=== PATIENT | female | born 1965 | race Caucasian/White ===

== ENCOUNTER → 2017-05-14 | Outpatient (CLI) | payer OTHER ==
--- NOTE | 2017-05-14 08:24 | MR ---
EXAMINATION TYPE: MR brain wo con DATE OF EXAM: 05/14/2017 COMPARISON: CT brain July 26, 2016. HISTORY: Headaches TECHNIQUE: Multiplanar, multisequence imaging of the brain and brainstem is performed without IV cont rast. FINDINGS: Artifact degradation over frontal aspect is noted making evaluation suboptimal. Diffusion weighted images demonstrate areas of increased signal for example left thalamus near image 112 but ar e significantly degraded by artifact. No corresponding low signal is seen on ADC mapping. Higher aspe cts of the brain show no restricted diffusion. There is no extraaxial fluid collection or significant white matter signal abnormality. There is single 3 mm millimeter focus right frontal white matter on axial image 18. The ventricular system and cisternal spaces are normal in size and appearance. The brain volume is age appropriate. Midline structures demonstrate normal morphology. The craniocervical junction appears within normal limits. Normal vascular flow voids are present. The globes are distorted by artifact. Evaluation of p aranasal sinuses is suboptimal. IMPRESSION: Suboptimal study due to marked artifact degradation involving frontal brain. No obvious abnormality is seen to account for patient's symptoms.
== END | disposition home or self-care (01) ==
LOC: RADMRIMAIN 07:13
PROVIDERS: ATTEND Psychiatry & Neurology Pain Medicine
DX: G93.89 Other specified disorders of brain (principal)
CPT/HCPCS: 70551

== ENCOUNTER → 2017-05-24 | Outpatient (CLI) | payer OTHER ==
[2017-05-24 12:57] LABS: Calcium 9.3 mg/dL (8.4-10.2); Magnesium 2.2 mg/dL (1.6-2.3)
[2017-05-24 19:29] LABS: Hemoglobin A1C 5.5 % (4.2-6.1)
[2017-05-29 10:38] LABS: Vitamin E (Alpha Tocopherol) 1109 ug/dL (500-1800)
== END | disposition home or self-care (01) ==
LOC: LABWHC1 05-22 11:14
PROVIDERS: ATTEND Psychiatry & Neurology Pain Medicine
DX: G89.4 Chronic pain syndrome (principal); Z79.899 Other long term (current) drug therapy
CPT/HCPCS: 36415; 82306; 82310; 82550; 83036; 83519; 83735; 84207; 84425; 84446; 84590; 84591; 84597

== ENCOUNTER → 2017-06-03 | Outpatient (CLI) | payer OTHER | END | disposition home or self-care (01) | LOC: LABWHC1 10:21 | PROVIDERS: ATTEND Internal Medicine Interventional Cardiology | DX: E03.9 Hypothyroidism, unspecified (principal) | CPT/HCPCS: 36415; 84443 ==

== ENCOUNTER → 2017-08-21 | Outpatient (CLI) | payer OTHER | END | disposition home or self-care (01) | LOC: LABWHC1 08:20 | PROVIDERS: ATTEND Psychiatry & Neurology Pain Medicine | DX: E55.9 Vitamin D deficiency, unspecified (principal) | CPT/HCPCS: 36415; 82306 ==

== ENCOUNTER → 2017-12-09 | Outpatient (CLI) | payer OTHER ==
--- NOTE | 2017-12-09 18:07 | XR ---
EXAMINATION TYPE: XR thoracic spine 2V DATE OF EXAM: 12/09/2017 COMPARISON: NONE HISTORY: Back pain TECHNIQUE: 3 views FINDINGS: There is mild thoracic dextroscoliosis. There is mild spurring of the endplates. I see no c ompression fracture. Posterior elements are intact. There is no sign of paraspinal mass. IMPRESSION: Mild spondylotic changes. No fracture.
--- NOTE | 2017-12-09 18:13 | XR ---
EXAMINATION TYPE: XR Hip Bilateral Complete DATE OF EXAM: 12/09/2017 COMPARISON: NONE HISTORY: Hip pain TECHNIQUE: 4 views FINDINGS: I see no fracture nor dislocation. Hip joint spaces are fairly well-maintained. There is no sign of hip dysplasia. IMPRESSION: Negative bilateral hip exam.
--- NOTE | 2017-12-09 18:30 | XR ---
EXAMINATION TYPE: XR cervical spine comp DATE OF EXAM: 12/09/2017 COMPARISON: 01/18/2015 HISTORY: Neck pain TECHNIQUE: 5 views FINDINGS: Vertebra have normal alignment. Posterior elements are intact. Atlantoaxial facet joint is normal. There are no cervical ribs. There is minimal anterior spurring at C5-6. C7 is somewhat obscur ed by the shoulders. IMPRESSION: Negative cervical spine exam. Minimal spurring. No fracture. No change.
== END | disposition home or self-care (01) ==
LOC: RADXRMAIN 17:05
PROVIDERS: ATTEND Internal Medicine
DX: M47.814 Spondylosis without myelopathy or radiculopathy, thoracic region (principal); M46.02 Spinal enthesopathy, cervical region; M25.559 Pain in unspecified hip
CPT/HCPCS: 72050; 72070; 73521

== ENCOUNTER → 2017-12-18 | Outpatient (CLI) | payer OTHER ==
[2017-12-18 16:04] LABS: Vitamin D 25 Hydroxy 21.8 ng/mL (30.0-100.0)
[2017-12-18 16:39] LABS: Folate, Serum >24.0 ng/mL
[2017-12-20 05:46] LABS: Vitamin B1 60 ug/L (38-122)
[2017-12-20 12:54] LABS: Vitamin B6 40 ug/L (5-50)
[2017-12-28 07:03] LABS: Nicotinuric Acid None Detected
== END | disposition home or self-care (01) ==
LOC: LABWHC1 08:22
PROVIDERS: ATTEND Psychiatry & Neurology Pain Medicine
DX: E55.9 Vitamin D deficiency, unspecified (principal); G62.9 Polyneuropathy, unspecified; R53.83 Other fatigue
CPT/HCPCS: 36415; 82306; 82607; 82746; 84207; 84425; 84591

== ENCOUNTER 2018-03-26 01:14 | Inpatient (IN) | payer OTHER ==
[2018-03-26] MEDS ORDERED: NITROGLYCERIN SL TABS 0.4 MG TAB SUBLINGUAL STA ×3 (01:36)
[2018-03-26] MEDS ORDERED: ASPIRIN 81 MG PO STA (01:36)
--- NOTE | 2018-03-26 01:41 | ED ---
General Adult HPI - General Chief complaint: Chest Pain Stated complaint: Chest pain Time Seen by Provider: 03/26/18 01:32 Source: patient, RN notes reviewed Mode of arrival: wheelchair Limitations: no limitations - History of Present Illness Initial comments: Patient is a pleasant 52-year-old female presenting to the emergency department complaining of chest discomfort. Symptoms have been waxing and waning since around noon. No history of similar symptoms previously. Discomfort feels sharp. There is associated dyspnea. Patient does have a history of hypertension and former smoker. Patient does have a family history of cardiac disease. Discomfort is currently 7 or 8/10. No associated nausea or diaphoresis. Patient has not exerted herself since symptoms started. There is some radiation to the left arm. - Related Data Home Medications Medication Instructions Recorded Confirmed Furosemide [Lasix] 20 mg PO BID 01/05/16 03/26/18 Potassium Chloride ER [K-Dur 20] 10 meq PO DAILY 01/05/16 03/26/18 Baclofen [Lioresal] 5 mg PO TID 01/23/16 03/26/18 Cholecalciferol [Vitamin D3] 1,000 unit PO DAILY 03/26/18 03/26/18 DULoxetine HCL [Cymbalta] 60 mg PO DAILY 03/26/18 03/26/18 Gabapentin [Neurontin] 300 mg PO TID 03/26/18 03/26/18 Loratadine [Claritin] 10 mg PO DAILY 03/26/18 03/26/18 Meloxicam [Mobic] 15 mg PO DAILY 03/26/18 03/26/18 Metoprolol Tartrate [Lopressor] 25 mg PO BID 03/26/18 03/26/18 Multivit with Calcium,Iron,Min 1 each PO 03/26/18 03/26/18 [Women's Multivitamin] Vitamin B Complex/Folic Acid 0.4 mg PO 03/26/18 [B-Complex Tablet] buPROPion HCL [Wellbutrin SR] 150 mg PO 03/26/18 Previous Rx's Medication Instructions Recorded Omeprazole [PriLOSEC] 20 mg PO AC-BRKFST #30 cap 01/25/16 Allergies Allergy/AdvReac Type Severity Reaction Status Date / Time Iodinated Contrast- Oral and Allergy Dyspnea Verified 07/24/16 21:52 IV Dye [Iodinated Contrast Media - IV Dye] latex Allergy Rash/Hives Verified 07/24/16 20:20 orange juice [Newcomb] Allergy Unknown Verified 07/24/16 20:20 wheat Allergy Unknown Verified 07/24/16 20:20 Review of Systems ROS Statement: Those systems with pertinent positive or pertinent negative responses have been documented in the HPI. ROS Other: All systems not noted in ROS Statement are negative. Constitutional: Denies: fever Eyes: Denies: eye pain ENT: Denies: ear pain Respiratory: Reports: dyspnea Cardiovascular: Reports: chest pain Endocrine: Reports: fatigue Gastrointestinal: Denies: abdominal pain Genitourinary: Denies: dysuria Musculoskeletal: Denies: back pain Skin: Denies: rash Neurological: Denies: weakness Past Medical History Past Medical History: Asthma, Hypertension, Osteoarthritis (OA), Sleep Apnea/ CPAP/BIPAP Additional Past Medical History / Comment(s): bulging disc History of Any Multi-Drug Resistant Organisms: None Reported Past Surgical History: Adenoidectomy, Hysterectomy, Joint Replacement, Orthopedic Surgery, Tonsillectomy, Tubal Ligation, Uterine Ablation Additional Past Surgical History / Comment(s): Right knee replacement Past Anesthesia/Blood Transfusion Reactions: No Reported Reaction Past Psychological History: Depression Smoking Status: Former smoker Past Alcohol Use History: None Reported Past Drug Use History: None Reported - Past Family History Mother Family Medical History: Osteoarthritis (OA) Additional Family Medical History / Comment(s): heart murmur Father Family Medical History: Cancer, Diabetes Mellitus, Hypertension General Exam Limitations: no limitations General appearance: alert, in no apparent distress Head exam: Present: atraumatic Eye exam: Present: normal appearance Neck exam: Present: normal inspection Respiratory exam: Present: normal lung sounds bilaterally. Absent: chest wall tenderness Cardiovascular Exam: Present: regular rate, normal rhythm Expanded Peripheral pulses: 2+: Radial (R), Radial (L), Dorsalis Pedis (R), Dorsalis Pedis (L) GI/Abdominal exam: Present: soft. Absent: tenderness Extremities exam: Present: normal inspection. Absent: pedal edema, calf tenderness Neurological exam: Present: alert Psychiatric exam: Present: normal affect, normal mood Skin exam: Present: normal color Course Vital Signs 03/26/18 03/26/18 03/26/18 01:17 01:35 01:53 Temperature 99.8 F H Pulse Rate 100 98 102 H Respiratory 20 18 18 Rate Blood Pressure 185/96 162/79 142/86 O2 Sat by Pulse 100 99 97 Oximetry 03/26/18 03/26/18 02:01 02:05 Temperature Pulse Rate 112 H 98 Respiratory 18 18 Rate Blood Pressure 152/83 148/75 O2 Sat by Pulse 99 99 Oximetry - Reevaluation(s) Reevaluation #1: 03/26/18 01:37 Cardiology has been paged. STEMI alert has been called. Practitioner Shaye assistant womens volleyball coach has been paged for admission for Dr. Barrios, covering for Dr. Flynn. 03/26/18 01:41 Case was discussed with Dr. Carpenter and the cath team has been called in. Patient was made aware of plan. 03/26/18 01:50 Right-sided EKG does show Q waves and some borderline elevation in lead V4. Sinus tachycardia 102. WI 168. QRS 68. QT 324. QTC 422. Low QRS did. Inferior Q waves with ST elevation. 03/26/18 01:53 Discomfort currently rated 3 or 4/10. 03/26/18 02:02 Dr. Carpenter is present and evaluating patient. 03/26/18 02:13 Patient heading to [facility] at this time. EKG Findings - EKG Comments: EKG Findings:: Normal sinus rhythm 96. WI 162. QRS 88. QT 340. QTc 429. Left axis. Inferior Q waves with ST elevation. ST depression leads V2 through V6. Medical Decision Making - Lab Data Result diagrams: 03/26/18 01:43 Lab Results 03/26/18 03/26/18 Range/Units 01:43 01:43 Sodium 141 (137-145) mmol/L Potassium 4.0 (3.5-5.1) mmol/L Chloride 102 (98-107) mmol/L Carbon Dioxide 25 (22-30) mmol/L Anion Gap 14 mmol/L BUN 13 (7-17) mg/dL Creatinine 0.70 (0.52-1.04) mg/dL Est GFR (CKD-EPI)AfAm >90 (>60 ml/min/1.73 sqM) Est GFR (CKD-EPI)NonAf >90 (>60 ml/min/1.73 sqM) Glucose 125 H (74-99) mg/dL Calcium 9.6 (8.4-10.2) mg/dL Magnesium 2.1 (1.6-2.3) mg/dL Total Bilirubin 0.2 (0.2-1.3) mg/dL AST 39 H (14-36) U/L ALT 25 (9-52) U/L Alkaline Phosphatase 63 (38-126) U/L Total Creatine Kinase 172 H (30-135) U/L Total Protein 6.3 (6.3-8.2) g/dL Albumin 3.9 (3.5-5.0) g/dL - Radiology Data Interpreted by me: Chest x-ray shows no acute process Critical Care Time Critical Care Time: Yes Total Critical Care Time: 31 Disposition Clinical Impression: ST elevation myocardial infarction (STEMI) Disposition: ADMITTED IP TO THIS HOSP Condition: Serious Is patient prescribed a controlled substance at d/c from ED?: No Decision Time: 02:13
[2018-03-26] MEDS ORDERED: HEPARIN SODIUM,PORCINE 5,000 UNIT/ML 1 ML VIAL IV ONE (01:51)
[2018-03-26] MEDS ORDERED: HEPARIN SODIUM,PORCINE 5,000 UNIT/ML 1 ML VIAL IV PRN (01:51)
[2018-03-26] MEDS ORDERED: SODIUM CHLORIDE 0.9% 1,000 ML IV STA (01:52)
[2018-03-26 01:58] LABS: Glucose,Whole Blood 120 mg/dL (75-99)
[2018-03-26 02:00] LABS: ALT 25 U/L (9-52); AST 39 U/L (14-36); Albumin 3.9 g/dL (3.5-5.0); Alkaline Phosphatase 63 U/L (38-126); Anion Gap 14 mmol/L; Blood Urea Nitrogen 13 mg/dL (7-17); Calcium 9.6 mg/dL (8.4-10.2); Carbon Dioxide 25 mmol/L (22-30); Chloride 102 mmol/L (98-107); Glucose 125 mg/dL (74-99); Magnesium 2.1 mg/dL (1.6-2.3); Sodium 141 mmol/L (137-145); Total Bilirubin 0.2 mg/dL (0.2-1.3); Total Protein 6.3 g/dL (6.3-8.2)
[2018-03-26] MEDS ORDERED: HEPARIN SOD,PORK IN 0.45% NACL 25,000 UNIT in 0.45% NACL 1 500ML.BAG IV SCH (02:00)
--- NOTE | 2018-03-26 02:04 | XR ---
EXAMINATION TYPE: XR chest 1V portable DATE OF EXAM: 03/26/2018 COMPARISON: 07/24/2016 HISTORY: Chest pain TECHNIQUE: Single frontal view of the chest is obtained. FINDINGS: Heart and mediastinum are normal. Lungs are clear. There is no heart failure. There are ch est leads. Bony thorax is intact. IMPRESSION: Normal chest. No change.
[2018-03-26 02:06] LABS: Partial Thromboplastin Time 23.2 sec (22.0-30.0); Prothrombin Time 9.7 sec (9.0-12.0)
[2018-03-26] MEDS ORDERED: LIDOCAINE 2% INJ 20 MG/ML (20 ML MDV) ONE (02:07)
[2018-03-26] MEDS ORDERED: VERAPAMIL 2.5 MG/ML 2 ML AMP ONE (02:07)
[2018-03-26] MEDS ORDERED: methylPREDNISolone SOD SUCCI 125 MG/2 ML VIAL ONE (02:14)
[2018-03-26] MEDS ORDERED: diphenhydrAMINE 50 MG/ML 1 ML VIAL ONE (02:14)
[2018-03-26 02:21] LABS: Basophils # (A) 0.1 k/uL (0-0.2); Basophils % (A) 1 %; Eosinophils # (A) 0.4 k/uL (0-0.7); Eosinophils % (A) 3 %; HCT 44.8 % (34.0-46.0); HGB 14.6 gm/dL (11.4-16.0); Lymphocytes # (A) 4.6 k/uL (1.0-4.8); Lymphocytes % (A) 39 %; MCH 28.5 pg (25.0-35.0); MCHC 32.7 g/dL (31.0-37.0); MCV 87.2 fL (80.0-100.0); Mean Platelet Volume 7.2; Monocytes # (A) 0.8 k/uL (0-1.0); Monocytes % (A) 7 %; Neutrophils # (A) 5.7 k/uL (1.3-7.7); Neutrophils % (A) 48 %; Platelet Count 386 k/uL (150-450); RBC 5.14 m/uL (3.80-5.40); RDW 13.5 % (11.5-15.5)
[2018-03-26] MEDS ORDERED: methylPREDNISolone SOD SUCCI 125 MG/2 ML VIAL IV ONE (02:25)
[2018-03-26] MEDS ORDERED: diphenhydrAMINE 50 MG/ML 1 ML VIAL IVP ONE (02:25)
[2018-03-26] MEDS ORDERED: LIDOCAINE 2% INJ 20 MG/ML SQ ONE (02:29)
[2018-03-26] MEDS ORDERED: SODIUM CHLORIDE 0.9% 500 ML IV ONE (02:31)
[2018-03-26] MEDS ORDERED: VERAPAMIL SYRINGE (5 MG/10 ML) INTRAARTER ONE (02:31)
[2018-03-26] MEDS ORDERED: BIVALIRUDIN BOLUS 250 MG/50 ML IV ONE (02:38)
[2018-03-26 02:39] LABS: Creatine Kinase MB 11.7 ng/mL (0.0-2.4); Troponin I 0.824 ng/mL (0.000-0.034)
[2018-03-26] MEDS ORDERED: BIVALIRUDIN 250 MG in SODIUM CHLORIDE 0.9% 50 ML IV ONE (02:39)
[2018-03-26] MEDS ORDERED: PRASUGREL 10 MG TAB ONE (02:41)
[2018-03-26] MEDS ORDERED: PRASUGREL 10 MG TAB PO ONE (02:45)
[2018-03-26] MEDS ORDERED: IOPAMIDOL-370 125ML BTL INJ ONE (02:49)
[2018-03-26] MEDS ORDERED: IOPAMIDOL-370 100ML BTL INJ ONE (02:52)
[2018-03-26] MEDS ORDERED: ATROPINE SULFATE 0.1 MG/ML 10ML SYRINGE IV PRN (03:09)
[2018-03-26] MEDS ORDERED: RX INFO: IV CONTRAST WAS GIVEN 1 EACH MISC MISCELLANE PRN (03:09)
[2018-03-26] MEDS ORDERED: NITROGLYCERIN SL TABS 0.4 MG TAB SUBLINGUAL PRN (03:09)
[2018-03-26] MEDS ORDERED: MAG HYDROX/AL HYDROX/SIMETH 30 ML CUP PO PRN (03:09)
[2018-03-26] MEDS ORDERED: ZOLPIDEM 5 MG TAB PO PRN (03:09)
[2018-03-26] MEDS ORDERED: SODIUM CHLORIDE 0.9% 1,000 ML IV SCH (03:15)
[2018-03-26 06:11] VITALS: BMI 40.2
--- NOTE | 2018-03-26 07:42 | CONS ---
CONSULTATION Ms. Valdez is a 52-year-old female with a strong family history of coronary artery disease, who presented with symptoms of chest discomfort. She has been having chest discomfort on and off since noon of yesterday. Came into the emergency room with evidence of inferior wall myocardial infarction. Patient has no prior documented history of coronary artery disease. She has no prior similar symptoms. She had prior history of fast heartbeat, has been seen by Dr. Nuñez and according to her, her workup was unremarkable. She has no history of syncope. No history of PND or orthopnea. She has chronic mild peripheral edema. She is not very active physically. Her coronary risk factor is positive for hypertension. She has a prior history of smoking, which she stopped 10 years ago. She has a strong family history of coronary artery disease in her family's side of the family. She has no history of documented hyperlipidemia or diabetes. MEDICATIONS: Include vitamin D, metoprolol tartrate 25 mg twice a day, potassium chloride, Lasix 20 mg twice a day, Mobic, Cymbalta, Prilosec, Neurontin, Wellbutrin, and baclofen in addition to vitamins. REVIEW OF SYSTEMS: RESPIRATORY SYSTEM: She has no history of asthma, but no recent wheezing or cough. GI SYSTEM: No recent GI bleeding. No peptic ulcer disease. SYSTEM: No dysuria or hematuria. NERVOUS SYSTEM: No stroke or seizure. PHYSICAL EXAMINATION: A 52-year-old female, alert, oriented, in no apparent distress. Her chest pain is better at the time my evaluation, blood pressure 148/70 with a heart rate in the 90s. HEAD: Normocephalic. EYES: Sclerae nonicteric. NECK: Good upstroke. No bruit. LUNGS: Clear to auscultation. HEART: Regular rate and rhythm, S1, S2. No S3 with systolic murmur at the base. No diastolic murmur. ABDOMEN: Soft, obese, nontender. Positive bowel sounds, no organomegaly. EXTREMITIES: No edema. Intact distal pulses. LAB DATA: Revealed BUN and creatinine 13 and 0.7, potassium 4.0, AST 39. EKG revealed sinus mechanism with ST-segment elevation inferiorly, QS in leads [address]-segment depression in anterolateral leads. IMPRESSION: 1. Acute inferolateral wall myocardial infarction. 2. History of hypertension. 3. History of arrhythmia in the past of unclear etiology. 4. Remote history of smoking. 5. Strong family history of coronary artery disease. RECOMMENDATION: I have recommended proceeding with coronary angiography to assess her status and guide her treatment. The rationale behind the procedure as well as risks and complication were discussed with the patient who is in full understanding and agreement. Depending on the results of testing, further recommendation will be made. Thank you for this consult. Will follow with you. KIRAN / IJN: [id number] /
--- NOTE | 2018-03-26 07:48 | CC ---
CARDIAC CATHETERIZATION REPORT Ms. Valdez is a 52-year-old female with a history of hypertension, strong family history of coronary artery disease, who presented with symptoms of chest discomfort and ST-segment elevation in the inferior leads and ST depression in the anterolateral leads. In view of that, recommendation made regarding cardiac catheterization, the procedures risks and complication were discussed with the patient who was in full understanding and agreement. PROCEDURE: Patient was brought to the [facility] after receiving fentanyl and Benadryl and achieving moderate conscious sedated state. Using Xylocaine anesthesia and Seldinger technique, a 6-Belgian sheath was introduced into the right radial artery. Selective right and left angiography were performed using care 5-Belgian 3.5 bend left Evan catheter and a 6-Belgian FR4 guiding catheter. Images of the coronary arteries were obtained. Following that, angioplasty and stenting of the left circumflex was performed. Following that, a 6-Belgian tight pigtail catheter was introduced into the left ventricle and a 30 degree PATTON view of the left ventricle was obtained. Following that, the catheter and sheaths were removed. Hemostasis was obtained with deployment of a TR band. There was no immediate complication. Patient is returned to her room in stable condition. FINDINGS: 1. LEFT MAIN: This is a short-size vessel, bifurcating into left circumflex, left anterior descending artery, left main coronary artery has no evidence of high-grade stenosis. 2. LEFT ANTERIOR DESCENDING ARTERY: This is a large-sized vessel, giving rise to a large diagonal branch proximally. The left anterior descending artery tapers down to the distal third. It has about 20% plaque proximally. The rest of the vessel has no high-grade stenosis. 3. LEFT CIRCUMFLEX: This is a large nondominant vessel giving rise to two obtuse marginal branch and the second one is the largest in caliber. The left circumflex after the takeoff of these first obtuse marginal branch has a 99% stenosis. The rest of the vessel has no high-grade stenosis. 4. RIGHT CORONARY ARTERY: This is a dominant vessel, moderate in caliber, bifurcating distally into PDA and posterolateral segment and branches. The right coronary artery as well as its branches have no evidence of obstructive coronary artery disease. 5. LEFT VENTRICULOGRAM: Left ventriculogram is performed in 30 degree PATTON view and revealed an inferoapical severe mid inferior, severe hypokinesis, ejection fraction 45% to 50%. There was no significant mitral regurgitation. HEMODYNAMICS: There was no gradient across the aortic valve. The left ventricular end- diastolic pressure was 16-18 mmHg. CONCLUSION: 1. Critical stenosis in the distal left circumflex. 2. Mild plaque in the proximal left anterior descending artery. .. 3. Mildly impaired left ventricular systolic function. RECOMMENDATION: In view of finding anatomy, I recommend to proceed with angioplasty and stenting of the left circumflex. The procedures, risks and complication were discussed with the patient was in the in agreement. MMODL / IJN: [id number] / MTDD
--- NOTE | 2018-03-26 08:03 | PTCA ---
PERCUTANEOUSTRANS CORORONARY ANGIOGRAPHY Ms. Valdez is a 52-year-old female with a history of hypertension and strong family history of coronary artery disease, who presented with evidence of an acute myocardial infarction, underwent cardiac catheterization, was found to have a critical stenosis involving the distal left circumflex. In view of that, recommendation was made regarding angioplasty and stenting. The procedures, risks and complication were discussed with the patient who is in full understanding and agreement. PROCEDURE: A 6-Belarusian FL 3.5 guiding catheter introduced into the system after cannulating the left main, a 0.014 advanced medium weight J-wire was advanced across the lesion and positioned distally. Then a 2.5 x 12 mm Trek balloon was advanced at 10 atmospheres was done. Following that, the balloon was removed and a 3.25 x 15 mm Xience Alpine stent was deployed, postdilated to 16 atmospheres. \After the last inflation, after appropriate wait the balloon and the guidewire were withdrawn back in the guiding catheter. Images were obtained and repeated. Those images reveal stable successful stenting. At that point, the guiding catheter, the bone. The guide removed and a 6 and a 5-Belarusian tight pigtail catheter was left ventricle and left ventriculogram was performed. Following that, the catheter and sheath were removed. Hemostasis was obtained with deployment of a TR band. There was no immediate complication. Patient was returned to her room in stable condition. At the end of the procedure, the patient's chest discomfort has almost resolved. She received Angiomax per protocol as well as oral loading dose of Effient and she received intra-arterial verapamil. RESULTS: Successful stenting of the distal left circumflex with reduction of stenosis from 99% to 0%. RECOMMENDATION: 1. Patient will be continued on aspirin, Effient, beta nanci, statin. The importance of dual antiplatelet treatment were discussed with the patient and her family who are in full understanding and agreement. 2. Duration of the procedure 27 minutes. MMODL / IJN: [id number] /
--- NOTE | 2018-03-26 08:12 | LTR ---
DATE OF SERVICE: 03/26/2018 RE: Radha Valdez Dear Dr. Camargo; I had the pleasure to perform cardiac catheterization on Ms. Valdez at [facility] on March 26, 2018 and a fully copy of the procedure note will be forwarded to you. In brief, she was found to have a subtotally occluded distal left circumflex, underwent successful stenting of that vessel using a drug-eluting stent. I am hopeful that this procedure will stabilize her status and thank you again for allowing me to participate in this patient's care. Please feel free to call for any questions. Sincerely yours, Deepak BECK / MELLYN: [id number] /
[2018-03-26 08:43] LABS: Basophils # (A) 0.1 k/uL (0-0.2); Basophils % (A) 0 %; Eosinophils # (A) 0.1 k/uL (0-0.7); Eosinophils % (A) 1 %; HCT 45.6 % (34.0-46.0); HGB 14.9 gm/dL (11.4-16.0); Lymphocytes # (A) 1.6 k/uL (1.0-4.8); Lymphocytes % (A) 15 %; MCH 28.9 pg (25.0-35.0); MCHC 32.7 g/dL (31.0-37.0); MCV 88.3 fL (80.0-100.0); Monocytes # (A) 0.1 k/uL (0-1.0); Monocytes % (A) 1 %; Neutrophils # (A) 8.8 k/uL (1.3-7.7); Neutrophils % (A) 82 %; Platelet Count 364 k/uL (150-450); RBC 5.17 m/uL (3.80-5.40); RDW 13.3 % (11.5-15.5); WBC 10.7 k/uL (3.8-10.6)
[2018-03-26 09:00] LABS: Anion Gap 14 mmol/L; Blood Urea Nitrogen 10 mg/dL (7-17); Calcium 9.5 mg/dL (8.4-10.2); Carbon Dioxide 25 mmol/L (22-30); Chloride 103 mmol/L (98-107); Cholesterol 198 mg/dL (<200); Glucose 160 mg/dL (74-99); HDL Cholesterol 47 mg/dL (40-60); LDL Cholesterol,Calculated 133 mg/dL (0-99); Potassium 4.4 mmol/L (3.5-5.1); Sodium 142 mmol/L (137-145); Triglycerides 91 mg/dL (<150)
[2018-03-26] MEDS: GABAPENTIN 300 MG CAP PO SCH ×3 (09:16→22:23)
[2018-03-26] MEDS: DULoxetine HCL 60 MG CAPSULE.DR PO SCH (09:16)
[2018-03-26] MEDS: LISINOPRIL 5 MG TAB PO SCH (09:16)
[2018-03-26] MEDS: ASPIRIN 81 MG PO SCH (09:16)
[2018-03-26] MEDS: METOPROLOL TARTRATE 25 MG TAB PO SCH ×2 (09:17→22:23)
[2018-03-26] MEDS: PANTOPRAZOLE 40 MG TABLET PO SCH (09:17)
--- NOTE | 2018-03-26 13:52 | ECHOF ---
Referral Reason:mi MEASUREMENTS -------- HEIGHT: 157.5 cm WEIGHT: 99.8 kg BP: 168/81 RVIDd: 3.3 cm (< 3.3) IVSd: 1.2 cm (0.6 - 1.1) LVIDd: 5.0 cm (3.9 - 5.3) LVPWd: 1.2 cm (0.6 - 1.1) IVSs: 1.7 cm LVIDs: 3.9 cm LVPWs: 1.7 cm LAESV Index (A-L): 19.35 ml/m Ao Diam: 2.5 cm (2.0 - 3.7) AV Cusp: 1.9 cm (1.5 - 2.6) LA Diam: 3.3 cm (2.7 - 3.8) MV E Duncan: 0.64 m/s MV DecT: 216 ms MV A Duncan: 0.92 m/s MV E/A Ratio: 0.69 RAP: 5.00 mmHg RVSP: 12.89 mmHg FINDINGS -------- Sinus rhythm. This was a techncally difficult study with suboptimal views, , Lumason utilized for enhancement of im ages. The left ventricular size is normal. There is mild concentric left ventricular hypertrophy. Overa ll left ventricular systolic function is low-normal with, an EF between 50 - 55 %. The right ventricle is normal in size. The left atrial size is normal. Normal LA size by volume 22+/-6 ml/m2. The right atrial size is normal. 5.0mg OF Lumason UTLIZED: 2 OR MORE WALL SEGMENTS NOT VISUALIZED. The aortic valve is trileaflet, and appears structurally normal. No aortic stenosis or regurgitation. Mild mitral annular calcification present. Mild mitral regurgitation is present. Mild tricuspid regurgitation present. There is no evidence of pulmonary hypertension. The right v entricular systolic pressure, as measured by Doppler, is 12.89mmHg. The pulmonic valve was not well visualized. There is no pulmonic regurgitation present. The aortic root size is normal. There is no pericardial effusion. CONCLUSIONS -------- 1. This was a techncally difficult study with suboptimal views, , Lumason utilized for enhancement of images. 2. The left ventricular size is normal. 3. There is mild concentric left ventricular hypertrophy. 4. Overall left ventricular systolic function is low-normal with, an EF between 50 - 55 %. 5. The left atrial size is normal. 6. Normal LA size by volume 22+/-6 ml/m2. 7. 5.0mg OF Lumason UTLIZED: 2 OR MORE WALL SEGMENTS NOT VISUALIZED. 8. The aortic valve is trileaflet, and appears structurally normal. No aortic stenosis or regurgitati on. 9. Mild mitral annular calcification present. 10. Mild mitral regurgitation is present. 11. Mild tricuspid regurgitation present. 12. There is no evidence of pulmonary hypertension. 13. The right ventricular systolic pressure, as measured by Doppler, is 12.89mmHg. 14. The pulmonic valve was not well visualized. 15. There is no pulmonic regurgitation present. 16. The aortic root size is normal. 17. There is no pericardial effusion. BUILDING DRAFTER: Radha Quintero RDCS
--- NOTE | 2018-03-26 19:18 | PN ---
PROGRESS NOTE This patient was admitted with chest pain. EKG was suggestive of inferior lateral myocardial infarction. Patient underwent a stent to the circumflex coronary artery. She is comfortable. The right radial pulse is normal. The patient's blood pressure is 152/71 mmHg. Head and ENT examination is negative. Heart: First and second heart sounds are normal. Lungs are clinically clear to auscultation and percussion. Abdomen is negative. EKG suggestive of inferior wall myocardial infarction. The patient's maximum troponin is 25. IMPRESSION: Status post anterior wall myocardial infarction. Patient's condition is stable. We will continue the patient on current medications. MMODL / IJN: [id number] /
[2018-03-26] MEDS: ATORVASTATIN 80 MG TAB PO SCH (22:23)
--- NOTE | 2018-03-26 23:25 | P.HPIM ---
History of Present Illness H&P Date: 03/26/18 Chief Complaint: Chest pain Patient is a 52-year-old female with a known history of hypertension, asthma, obstructive sleep apnea and morbid obesity came to ER with complaints of chest discomfort. Patient initially developed chest pain and radiated to both arms. Pain started around noon yesterday. [place] like sharp pain 8 x 10, associated with nausea and extreme diaphoresis. Patient initially thought of muscle catch and waited for a long time before coming to ER. Patient was found to have elevated blood pressure on admission. Patient does have a history of rapid heart rate and is taking metoprolol at home. Patient does follow with Dr. Covarrubias. Patient was found have acute CA and was immediately taken to cardiac catheterization and stent placement was done. Currently patient denied any chest discomfort. Review of Systems Constitutional: Patient denies any fever or chills . No generalized weakness or weight loss. Abdomen: Patient denied nausea vomiting and diarrhea and abdominal pain. Cardiovascular: Patient denies any chest pain or short of breath no palpitations. Respiratory: patient denied any cough is from production. No shortness of breath Neurologic: Patient denied any numbness or tingling headache. Musculoskeletal: Patient denies any complaints of joint swelling or deformity. Skin: Negative Psychiatric: Negative Endocrine: No heat or cold intolerance. No recent weight gain. Genitourinary: No dysuria or hematuria. All other 14 point ROS negative except the above Past Medical History Past Medical History: Asthma, Hypertension, Osteoarthritis (OA), Sleep Apnea/ CPAP/BIPAP Additional Past Medical History / Comment(s): bulging disc History of Any Multi-Drug Resistant Organisms: None Reported Past Surgical History: Adenoidectomy, Hysterectomy, Joint Replacement, Orthopedic Surgery, Tonsillectomy, Tubal Ligation, Uterine Ablation Additional Past Surgical History / Comment(s): Right knee replacement Past Anesthesia/Blood Transfusion Reactions: No Reported Reaction Past Psychological History: Depression Smoking Status: Former smoker Past Alcohol Use History: None Reported Past Drug Use History: None Reported - Past Family History Mother Family Medical History: Osteoarthritis (OA) Additional Family Medical History / Comment(s): heart murmur Father Family Medical History: Cancer, Diabetes Mellitus, Hypertension Medications and Allergies Home Medications Medication Instructions Recorded Confirmed Type Furosemide [Lasix] 20 mg PO BID 01/05/16 03/26/18 History Potassium Chloride ER [K-Dur 20] 10 meq PO DAILY 01/05/16 03/26/18 History Baclofen [Lioresal] 10 mg PO TID 01/23/16 03/26/18 History Omeprazole [PriLOSEC] 20 mg PO AC-BRKFST #30 cap 01/25/16 03/26/18 Rx Cholecalciferol [Vitamin D3] 1,000 unit PO DAILY 03/26/18 03/26/18 History Collagen Plus Vit C 1 tab PO DAILY 03/26/18 03/26/18 History DULoxetine HCL [Cymbalta] 60 mg PO DAILY 03/26/18 03/26/18 History Gabapentin [Neurontin] 300 mg PO TID 03/26/18 03/26/18 History Loratadine [Claritin] 10 mg PO DAILY 03/26/18 03/26/18 History Meloxicam [Mobic] 15 mg PO DAILY 03/26/18 03/26/18 History Metoprolol Succinate [Toprol XL] 12.5 mg PO BID 03/26/18 03/26/18 History Multivit with Calcium,Iron,Min 1 tab PO DAILY 03/26/18 03/26/18 History [Women's Multivitamin] Niacin (Inositol Niacinate) 500 mg PO DAILY 03/26/18 03/26/18 History [Niacin 500 mg Capsule] Vitamin B Complex/Folic Acid 0.4 mg PO DAILY 03/26/18 03/26/18 History [B-Complex Tablet] buPROPion SR [Wellbutrin SR] 150 mg PO DAILY 03/26/18 03/26/18 History Allergies Allergy/AdvReac Type Severity Reaction Status Date / Time Iodinated Contrast- Oral and Allergy Dyspnea Verified 03/26/18 04:18 IV Dye [Iodinated Contrast Media - IV Dye] latex Allergy Rash/Hives Verified 03/26/18 04:18 orange juice [[place]] Allergy Unknown Verified 03/26/18 04:18 wheat Allergy Unknown Verified 03/26/18 04:18 Physical Exam Vitals: Vital Signs Temp Pulse Pulse Resp BP BP Pulse Ox 03/26/18 10:00 110 H 151/76 99 03/26/18 09:00 108 H 149/72 98 03/26/18 08:00 98.1 F 92 95 18 144/71 97 03/26/18 07:00 91 95 20 168/81 168/81 98 03/26/18 06:40 94 97 03/26/18 05:00 94 20 138/82 100 03/26/18 04:30 94 20 151/78 97 03/26/18 04:00 88 18 146/75 98 03/26/18 03:45 86 18 141/80 99 03/26/18 03:30 88 18 154/98 100 03/26/18 03:15 98.3 F 82 20 149/92 100 03/26/18 02:05 98 18 148/75 99 03/26/18 02:01 112 H 18 152/83 99 03/26/18 01:53 102 H 18 142/86 97 03/26/18 01:35 98 18 162/79 99 03/26/18 01:17 99.8 F H 100 20 185/96 100 Intake and Output 03/25/18 03/26/18 03/26/18 22:59 06:59 14:59 Intake Total 573.8 400 Output Total 800 600 Balance -226.2 -200 Intake: IV 573.8 400 Sodium Chloride 0.9% 1, 300 400 000 ml @ 100 mls/hr IV . Q10H [facility] Rx#:[id number] Output: Urine 800 600 Other: Voiding Method Bedpan # Bowel Movements 0 Weight 99.79 kg 99.79 kg PHYSICAL EXAMINATION: Patient is lying in the bed comfortably, no acute distress, awake alert and oriented.. HEENT: Normocephalic. Neck is supple. Pupils reactive. Nostrils clear. Oral cavity is moist. Ears reveal no drainage. Neck reveals no JVD, carotid bruits, or thyromegaly. CHEST EXAMINATION: Trachea is central. Symmetrical expansion. Lung palomo clear to auscultation and percussion. CARDIAC: Normal S1, S2 with no gallops. No murmurs ABDOMEN: Soft. Bowel sounds normal. No organomegaly. No abdominal bruits. Extremities: reveal no edema. No clubbing or cyanosis Neurologically awake, alert, oriented x3 with well-coordinated movements. No focal deficits noted Skin: No rash or skin lesions. Psychiatric: Coperative. Nonsuicidal Musculoskeletal: No joint swelling or deformity. Normal range of motion. Results CBC & Chem 7: 03/26/18 08:22 05/02/18 08:22 Labs: Abnormal Lab Results - Last 24 Hours (Table) 03/26/18 03/26/18 03/26/18 Range/Units 01:43 01:43 01:43 WBC 12.0 H (3.8-10.6) k/uL Neutrophils # (1.3-7.7) k/uL Glucose 125 H (74-99) mg/dL POC Glucose (mg/dL) (75-99) mg/dL AST 39 H (14-36) U/L Total Creatine Kinase 172 H (30-135) U/L CK-MB (CK-2) 11.7 H* (0.0-2.4) ng/mL Troponin I 0.824 H* (0.000-0.034) ng/mL LDL Cholesterol, Calc (0-99) mg/dL 03/26/18 03/26/18 03/26/18 Range/Units 01:54 08:22 08:22 WBC 10.7 H (3.8-10.6) k/uL Neutrophils # 8.8 H (1.3-7.7) k/uL Glucose (74-99) mg/dL POC Glucose (mg/dL) 120 H (75-99) mg/dL AST (14-36) U/L Total Creatine Kinase (30-135) U/L CK-MB (CK-2) (0.0-2.4) ng/mL Troponin I 25.500 H* (0.000-0.034) ng/mL LDL Cholesterol, Calc (0-99) mg/dL 03/26/18 Range/Units 08:22 WBC (3.8-10.6) k/uL Neutrophils # (1.3-7.7) k/uL Glucose 160 H (74-99) mg/dL POC Glucose (mg/dL) (75-99) mg/dL AST (14-36) U/L Total Creatine Kinase (30-135) U/L CK-MB (CK-2) (0.0-2.4) ng/mL Troponin I (0.000-0.034) ng/mL LDL Cholesterol, Calc 133 H (0-99) mg/dL Thrombosis Risk Factor Assmnt - DVT/VTE Prophylaxis DVT/VTE Prophylaxis: Pharmacologic Prophylaxis ordered - Choose All That Apply Any of the Below Risk Factors Present?: Yes Each Factor Represents 1 point: Acute CA, Age 41-60 years Other Risk Factors: No Other congenital or acquired thrombophilia - If yes, enter type in comment: No Thrombosis Risk Factor Assessment Total Risk Factor Score: 2 Thrombosis Risk Factor Assessment Level: Low Risk Assessment and Plan Assessment: 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 Cardiology is following. We will continue the telemetry monitoring. Currently patient is chest pain free. Monitor blood pressure and follow. Further recommendations based on the clinical course. Currently his patient is being monitored in the ICU. Time with Patient: Greater than 30
[2018-03-27 05:01] LABS: Basophils # (A) 0.1 k/uL (0-0.2); Basophils % (A) 1 %; Eosinophils # (A) 0.1 k/uL (0-0.7); Eosinophils % (A) 1 %; HCT 41.3 % (34.0-46.0); HGB 13.3 gm/dL (11.4-16.0); Lymphocytes # (A) 4.5 k/uL (1.0-4.8); Lymphocytes % (A) 21 %; MCH 28.6 pg (25.0-35.0); MCHC 32.2 g/dL (31.0-37.0); MCV 88.8 fL (80.0-100.0); Mean Platelet Volume 7.1; Monocytes # (A) 1.5 k/uL (0-1.0); Monocytes % (A) 7 %; Neutrophils # (A) 14.4 k/uL (1.3-7.7); Neutrophils % (A) 69 %; Platelet Count 371 k/uL (150-450); RBC 4.66 m/uL (3.80-5.40); RDW 13.7 % (11.5-15.5)
[2018-03-27 05:22] LABS: Anion Gap 10 mmol/L; Blood Urea Nitrogen 18 mg/dL (7-17); Calcium 9.3 mg/dL (8.4-10.2); Carbon Dioxide 26 mmol/L (22-30); Chloride 106 mmol/L (98-107); Glucose 130 mg/dL (74-99); Potassium 4.1 mmol/L (3.5-5.1); Sodium 142 mmol/L (137-145)
[2018-03-27] MEDS: PANTOPRAZOLE 40 MG TABLET PO SCH (07:56)
[2018-03-27] MEDS: METOPROLOL TARTRATE 25 MG TAB PO SCH ×2 (07:56→20:56)
[2018-03-27] MEDS: ASPIRIN 81 MG PO SCH (07:56)
[2018-03-27] MEDS: GABAPENTIN 300 MG CAP PO SCH ×3 (07:56→20:56)
[2018-03-27] MEDS: DULoxetine HCL 60 MG CAPSULE.DR PO SCH ×2 (07:56→20:56)
[2018-03-27] MEDS ORDERED: PRASUGREL 10 MG TAB PO SCH (09:00)
[2018-03-27] MEDS: LISINOPRIL 5 MG TAB PO SCH (12:42)
[2018-03-27] MEDS: ACETAMINOPHEN TAB 500 MG TAB PO PRN ×2 (13:36→23:14)
--- NOTE | 2018-03-27 14:04 | PN ---
PROGRESS NOTE This patient is status post inferior lateral myocardial infarction with a stent to the circumflex coronary artery. Patient is doing well. She denies any chest pain, orthopnea or PND. No arrhythmias are noted. Blood pressure this morning is 114/70 mmHg. First and second heart sounds are normal. Lungs are clinically clear to auscultation and percussion. Patient's Effient is changed to Plavix because of the insurance problems. The patient is otherwise doing well. She will be ambulated and probable be discharged home tomorrow. MMODL / IJN: [id number] /
[2018-03-27] MEDS: ATORVASTATIN 80 MG TAB PO SCH (20:56)
--- NOTE | 2018-03-27 23:17 | P.PN ---
Subjective Progress Note Date: 03/27/18 Principal diagnosis: Acute inferior wall ID status post cardiac Catheterization stent placement Patient is a 52-year-old female with a known history of hypertension, asthma, obstructive sleep apnea and morbid obesity came to ER with complaints of chest discomfort. Patient initially developed chest pain and radiated to both arms. Pain started around noon yesterday. [place] like sharp pain 8 x 10, associated with nausea and extreme diaphoresis. Patient initially thought of muscle catch and waited for a long time before coming to ER. Patient was found to have elevated blood pressure on admission. Patient does have a history of rapid heart rate and is taking metoprolol at home. Patient does follow with Dr. Covarrubias. Patient was found have acute ID and was immediately taken to cardiac catheterization and stent placement was done. Currently patient denied any chest discomfort. 03/27/2018 Patient denied any complaints of chest pain or shortness of breath. No acute overnight issues are EKG changes. Otherwise patient was to be started back on Cymbalta and Wellbutrin which she takes at home. Patient is ambulating well and anticipate discharge next 24 hours. Cardiology is following. No nausea vomiting or abdominal pain. All other review of systems negative except the above current medications reviewed Objective - Vital Signs Vital signs: Vital Signs Temp 98.2 F 03/27/18 12:00 Pulse 72 03/27/18 12:00 Resp 14 03/27/18 12:00 BP 99/65 03/27/18 12:00 Pulse Ox 96 03/27/18 12:00 Intake & Output 03/26/18 03/27/18 03/27/18 18:59 06:59 18:59 Intake Total 1200 480 250 Output Total 900 Balance 300 480 250 Weight 99.79 kg 103 kg Intake: IV 700 0 Sodium Chloride 0.9% 1, 700 0 000 ml @ 100 mls/hr IV . Q10H [facility] Rx#:[id number] Oral 500 480 250 Output: Urine 900 Other: Voiding Method Bedpan Toilet Toilet # Voids 1 1 # Bowel Movements 0 - Exam PHYSICAL EXAMINATION: Patient is lying in the bed comfortably, no acute distress, awake alert and oriented.. HEENT: Normocephalic. Neck is supple. Pupils reactive. Nostrils clear. Oral cavity is moist. Ears reveal no drainage. Neck reveals no JVD, carotid bruits, or thyromegaly. CHEST EXAMINATION: Trachea is central. Symmetrical expansion. Lung palomo clear to auscultation and percussion. CARDIAC: Normal S1, S2 with no gallops. No murmurs ABDOMEN: Soft. Bowel sounds normal. No organomegaly. No abdominal bruits. Extremities: reveal no edema. No clubbing or cyanosis Neurologically awake, alert, oriented x3 with well-coordinated movements. No focal deficits noted Skin: No rash or skin lesions. Psychiatric: Coperative. Nonsuicidal Musculoskeletal: No joint swelling or deformity. Normal range of motion. 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 Cardiology is following. We will continue the telemetry monitoring. Currently patient is chest pain free. Monitor blood pressure and follow. Further recommendations based on the clinical course. Patient is being transferred to telemetry unit. Time with Patient: Greater than 30
[2018-03-28 05:40] LABS: Basophils # (A) 0.1 k/uL (0-0.2); Basophils % (A) 1 %; Eosinophils # (A) 0.3 k/uL (0-0.7); Eosinophils % (A) 3 %; HCT 42.5 % (34.0-46.0); HGB 13.9 gm/dL (11.4-16.0); Lymphocytes % (A) 45 %; MCH 29.2 pg (25.0-35.0); MCHC 32.8 g/dL (31.0-37.0); MCV 88.8 fL (80.0-100.0); Mean Platelet Volume 6.7; Monocytes # (A) 0.7 k/uL (0-1.0); Monocytes % (A) 6 %; Neutrophils # (A) 5.4 k/uL (1.3-7.7); Neutrophils % (A) 43 %; Platelet Count 372 k/uL (150-450); RBC 4.78 m/uL (3.80-5.40); RDW 13.7 % (11.5-15.5); WBC 12.8 k/uL (3.8-10.6)
[2018-03-28 05:48] LABS: Lymphocytes # (A) 5.8 k/uL (1.0-4.8)
[2018-03-28 05:56] LABS: Anion Gap 10 mmol/L; Blood Urea Nitrogen 20 mg/dL (7-17); Carbon Dioxide 29 mmol/L (22-30); Chloride 104 mmol/L (98-107); Glucose 85 mg/dL (74-99); Potassium 4.7 mmol/L (3.5-5.1); Sodium 143 mmol/L (137-145)
[2018-03-28 06:58] LABS: Anisocytosis (M) Present
[2018-03-28] MEDS: PANTOPRAZOLE 40 MG TABLET PO SCH (07:45)
[2018-03-28 08:01] VITALS: BP 107/66; RESP 16
[2018-03-28] MEDS: LISINOPRIL 5 MG TAB PO SCH (08:41)
[2018-03-28] MEDS: ASPIRIN 81 MG PO SCH (08:42)
[2018-03-28] MEDS: DULoxetine HCL 60 MG CAPSULE.DR PO SCH (08:42)
[2018-03-28] MEDS: GABAPENTIN 300 MG CAP PO SCH (08:42)
[2018-03-28] MEDS: METOPROLOL TARTRATE 25 MG TAB PO SCH (08:42)
[2018-03-28] MEDS: ACETAMINOPHEN TAB 500 MG TAB PO PRN (08:44)
[2018-03-28 08:48] VITALS: PULSE 79; TEMP 97.6
[2018-03-28] MEDS ORDERED: CLOPIDOGREL 75 MG TAB PO SCH (09:00)
--- NOTE | 2018-03-28 14:12 | P.PN ---
Subjective Progress Note Date: 03/28/18 This is a 52-year-old female who presented to the hospital with acute myocardial infarction, underwent angioplasty with stent placement of the circumflex. Patient has history of hypertension and strong family history of coronary artery disease. She was seen and examined this morning, denied any chest pain or difficulty in breathing. Blood pressure 108/66, heart rate in the 60s I'm respirations 16. White blood cell count 12.8, hemoglobin 13.9, platelet count 372. Sodium 143, potassium 4.7, BUN 20, creatinine 0.7. was seen and examined this morning, denies any chest pain or difficulty in breathing. She's been up ambulating without any difficulty. Objective - Vital Signs Vital signs: Vital Signs Temp 97.6 F 03/28/18 08:00 Pulse 79 03/28/18 08:00 Resp 16 03/28/18 08:00 BP 107/66 03/28/18 04:00 Pulse Ox 96 03/28/18 08:00 Intake & Output 03/27/18 03/28/18 03/28/18 18:59 06:59 18:59 Intake Total 250 100 240 Output Total 3 Balance 247 100 240 Weight 102.4 kg Intake: Oral 250 100 240 Output: Urine 3 Other: Voiding Method Toilet Toilet Toilet # Voids 1 # Bowel Movements 1 - Exam PHYSICAL EXAMINATION: HEENT: Head is atraumatic, normocephalic. Pupils equal, round. Neck is supple. There is no elevated jugular venous pressure. HEART EXAMINATION: Heart S1, S2 normal. No murmur or gallop heard. CHEST EXAMINATION: Lungs are clear to auscultation and precussion. No chest wall tenderness is noted on palpation or with deep breathing. ABDOMEN: Soft, nontender. Bowel sounds are heard. No organomegaly noted. EXTREMITIES: 2+ peripheral pulses with no evidence of peripheral edema and no calf tenderness noted. NEUROLOGIC patient is awake, alert and oriented -3. . - Labs CBC & Chem 7: 03/28/18 05:23 03/28/18 05:23 Labs: Abnormal Lab Results - Last 24 Hours (Table) 03/28/18 03/28/18 Range/Units 05:23 05:23 WBC 12.8 H (3.8-10.6) k/uL Lymphocytes # 5.8 H (1.0-4.8) k/uL BUN 20 H (7-17) mg/dL Assessment and Plan Plan: Assessment and plan #1 acute myocardial infarction status post stent placement of the circumflex artery. #2 history of hypertension #3 remote history of smoking #4 strong family history of coronary artery disease Plan Patient will be discharged home today. A follow-up appointment will be made in the office with Dr. Covarrubias post discharge. Patient will be discharged home on aspirin 81 mg daily, Lipitor 80 mg daily, Plavix 75 mg daily, Zestril 5 mg daily , Lopressor 25 mg twice a day and sublingual nitroglycerin as needed for chest pain. DNP note has been reviewed, I agree with a documented findings and plan of care. Patient was seen and examined.
== END 2018-03-28 10:56 | disposition home or self-care (01) | DRG 247 ==
LOC: EC 01:14 → 6ICU 01:53 → 6SEL 03-27 16:32
PROVIDERS: ADMIT Hospitalist; ATTEND Hospitalist
PROC: 027034Z Dilation of Coronary Artery, One Artery with Drug-eluting Intraluminal Device, Percutaneous Approach (ICD-10-PCS; principal; 2018-03-26 02:04)
PROC: B2151ZZ Fluoroscopy of Left Heart using Low Osmolar Contrast (ICD-10-PCS; principal; 2018-03-26 02:04)
PROC: 4A023N7 Measurement of Cardiac Sampling and Pressure, Left Heart, Percutaneous Approach (ICD-10-PCS; principal; 2018-03-26 02:04)
PROC: B2111ZZ Fluoroscopy of Multiple Coronary Arteries using Low Osmolar Contrast (ICD-10-PCS; principal; 2018-03-26 02:04)
DX: I21.19 ST elevation (STEMI) myocardial infarction involving other coronary artery of inferior wall (principal); Z68.41 Body mass index [BMI] 40.0-44.9, adult; E66.01 Morbid (severe) obesity due to excess calories; F32.9 Major depressive disorder, single episode, unspecified; F41.9 Anxiety disorder, unspecified; G47.33 Obstructive sleep apnea (adult) (pediatric); I10 Essential (primary) hypertension; I25.10 Atherosclerotic heart disease of native coronary artery without angina pectoris; J45.909 Unspecified asthma, uncomplicated; Z79.1 Long term (current) use of non-steroidal anti-inflammatories (NSAID); Z82.49 Family history of ischemic heart disease and other diseases of the circulatory system; Z83.3 Family history of diabetes mellitus; Z87.891 Personal history of nicotine dependence; Z90.710 Acquired absence of both cervix and uterus; Z96.651 Presence of right artificial knee joint; Z79.899 Other long term (current) drug therapy; Z91.041 Radiographic dye allergy status; Z91.040 Latex allergy status; Z91.018 Allergy to other foods
CPT/HCPCS: 36415; 71045; 80048; 80053; 80061; 82550; 82553; 83695; 83735; 84484; 85025; 85347; 85610; 85730; 93005; 93306; 93458; 96365; 96376; 99291

== ENCOUNTER → 2018-07-12 | Outpatient (CLI) | payer OTHER ==
[2018-07-12 11:05] LABS: Cholesterol 121 mg/dL (<200); HDL Cholesterol 37 mg/dL (40-60); LDL Cholesterol,Calculated 55 mg/dL (0-99); Triglycerides 145 mg/dL (<150)
== END | disposition home or self-care (01) ==
LOC: LABWHC1 10:13
PROVIDERS: ATTEND Nurse Practitioner Adult Health
DX: E78.5 Hyperlipidemia, unspecified (principal)
CPT/HCPCS: 36415; 80061

== ENCOUNTER → 2018-07-16 | Outpatient (CLI) | payer OTHER | END | disposition home or self-care (01) | LOC: RADUSWWP 09:40 | PROVIDERS: ATTEND Internal Medicine | DX: M79.662 Pain in left lower leg (principal); Z91.041 Radiographic dye allergy status | CPT/HCPCS: 93923 ==

== ENCOUNTER → 2019-08-26 | Outpatient (CLI) | payer BC | END | disposition home or self-care (01) | LOC: CPPFTMAIN 08:21 | PROVIDERS: ATTEND Internal Medicine | DX: R06.02 Shortness of breath (principal) | CPT/HCPCS: 94060; 94726; 94729 ==

== ENCOUNTER 2020-06-25 14:52 | Inpatient (IN) | payer MEDICARE, OTHER ==
[2020-06-25] MEDS ORDERED: SODIUM CHLORIDE 0.9% 1,000 ML IV STA (15:23)
[2020-06-25] MEDS ORDERED: KETOROLAC 30 MG/ML 1 ML VIAL IVP STA (15:23)
[2020-06-25] MEDS ORDERED: ONDANSETRON 4 MG/2 ML VIAL IVP STA (15:23)
--- NOTE | 2020-06-25 15:27 | ED ---
General Adult HPI - General Chief complaint: Fever Stated complaint: fever/body aches Time Seen by Provider: 06/25/20 15:09 Source: patient Mode of arrival: wheelchair Limitations: no limitations - History of Present Illness Initial comments: Dictation was produced using [employer] dictation software. please excuse any grammatical, word or spelling errors. This patient was cared for during a federal and state declared state of emergency secondary to Covid 19 Chief Complaint: 55-year-old female presents with fever and abdominal pain since this morning. History of Present Illness: Patient is 55-year-old female she woke up this morning feeling ill. Patient states she felt normal yesterday. Patient complaining of symptoms of abdominal pain, fever, nausea and diarrhea. Patient states she just completed a course of Bactrim yesterday. She was on antibiotics recently in anticipation for pain stimulator placement in the near future. Patient states she feels constitutional symptoms including chills, fever. She has a history of appendectomy. She states that her diarrhea is clear, nonbloody and nonbilious. She does have a mild nonproductive cough. She has history of asthma. Patient denies any chest pain. Denies any rashes. She has history of rheumatoid arthritis and has total body aches. When asked what symptoms astrid rned showed the most, she replies with her abdominal pain. She states that she feels as though she has to throw up. She reports that her pain is diffuse however worse on the right side. She reports taking Tylenol as prior to arrival. The ROS documented in this emergency department record has been reviewed and confirmed by me. Those systems with pertinent positive or negative responses have been documented in the HPI. All other systems are other negative and/or noncontributory. PHYSICAL EXAM: General Impression: Alert and oriented x3, not in acute distress HEENT: Normocephalic atraumatic, extra-ocular movements intact, pupils equal and reactive to light bilaterally, mucous membranes moist. Cardiovascular: Heart regular rate and rhythm Chest: Able to complete full sentences, no retractions, no tachypnea Abdomen: abdomen soft, tenderness to palpation over the right upper and right lower quadrant, no rebound tenderness, non-distended, no organomegaly Musculoskeletal: Pulses present and equal in all extremities, no peripheral edema Motor: no focal deficits noted Neurological: CN II-XII grossly intact, no focal motor or sensory deficits noted Skin: Intact with no visualized rashes Psych: Normal affect and mood ED course: 55-year-old female with multiple comorbid disease presents with fever and abdominal pain. Report having constitutional symptoms. Vital signs upon arrival shows temperature 102.9, heart rate of 146, rest of vital signs within acceptable limits. Patient EKG showed heart rate of 144. Patient's tachycardia is likely the result of pyrexia. Patient initially given 1 L normal saline bolus, 15 no gram IV push of Toradol and 4 mg of IV Zofran.Patient has elevated temperature and elevated lactic acid level of 2.3. Clinical presentation concerning for sepsis. Patient ideal body weight for her height is 48 kg. Patient given 1500 mL bolus and total per sepsis protocol. Urinalysis is negative for urinary tract infection. This point it is unclear what is causing patient's symptoms. Given elevated white count and lactic acidosis patient be admitted for systemic inflammatory response syndrome. Patient reevaluated bedside and found to be in stable medical condition. Discussed patient case with Dr. Barrios who is willing to accept patients care. EKG interpretation: Ventricular rate 144, sinus tachycardia,. Interval 132, QRS 80, QTc 445. No VT prolongation, no QTC prolongation, no ST or T-wave changes noted. EKG compared to EKG from 01/05/2016 no changes. - Related Data Home Medications Medication Instructions Recorded Confirmed Gabapentin [Neurontin] 300 mg PO TID 03/26/18 06/25/20 buPROPion SR [Wellbutrin SR] 150 mg PO HS 03/26/18 06/25/20 Acetaminophen Tab [Tylenol Tab] 1,000 mg PO Q6H PRN 06/25/20 06/25/20 Albuterol Inhaler [Ventolin Hfa 2 puff INHALATION RT-Q4H PRN 06/25/20 06/25/20 Inhaler] Albuterol Nebulized [Ventolin 2.5 mg INHALATION RT-QID PRN 06/25/20 06/25/20 Nebulized] Aspirin EC [Ecotrin Low Dose] 81 mg PO DAILY 06/25/20 06/25/20 Baclofen [Lioresal] 5 mg PO TID 06/25/20 06/25/20 Budesonide/Formoterol Fumarate 2 puff INHALATION RT-BID PRN 06/25/20 06/25/20 [Symbicort 160-4.5 Mcg Inhaler] Cetirizine HCl [Zyrtec] 10 mg PO DAILY 06/25/20 06/25/20 Losartan [Cozaar] 25 mg PO DAILY 06/25/20 06/25/20 Meloxicam [Mobic] 15 mg PO DAILY 06/25/20 06/25/20 Montelukast [Singulair] 10 mg PO HS 06/25/20 06/25/20 Omeprazole [PriLOSEC] 20 mg PO BID 06/25/20 06/25/20 Oxybutynin Chloride [Ditropan] 5 mg PO BID 06/25/20 06/25/20 Triamterene-Hctz 37.5-25Mg 1 cap PO DAILY 06/25/20 06/25/20 [Dyazide 37.5-25 Capsule] Previous Rx's Medication Instructions Recorded Atorvastatin [Lipitor] 80 mg PO HS #30 tab 03/28/18 Nitroglycerin Sl Tabs [Nitrostat] 0.4 mg SUBLINGUAL Q5M PRN #25 tab 03/28/18 Allergies Allergy/AdvReac Type Severity Reaction Status Date / Time Iodinated Contrast Media Allergy Dyspnea Verified 06/25/20 16:59 [Iodinated Contrast Media - IV Dye] latex Allergy Rash/Hives Verified 06/25/20 16:59 orange juice [[place]] Allergy Itching Verified 06/25/20 16:59 Penicillins Allergy Anaphylaxis Verified 06/25/20 16:59 wheat Allergy Itching Verified 06/25/20 16:59 Review of Systems ROS Statement: Those systems with pertinent positive or pertinent negative responses have been documented in the HPI. ROS Other: All systems not noted in ROS Statement are negative. Past Medical History Past Medical History: Asthma, Hypertension, Osteoarthritis (OA), Sleep Apnea/CPAP/BIPAP Additional Past Medical History / Comment(s): bulging disc History of Any Multi-Drug Resistant Organisms: None Reported Past Surgical History: Adenoidectomy, Hysterectomy, Joint Replacement, Orthopedic Surgery, Tonsillectomy, Tubal Ligation, Uterine Ablation Additional Past Surgical History / Comment(s): Right knee replacement Past Anesthesia/Blood Transfusion Reactions: No Reported Reaction Past Psychological History: Depression Smoking Status: Never smoker Past Alcohol Use History: None Reported Past Drug Use History: None Reported - Past Family History Mother Family Medical History: Osteoarthritis (OA) Additional Family Medical History / Comment(s): heart murmur Father Family Medical History: Cancer, Diabetes Mellitus, Hypertension General Exam Limitations: no limitations Course Vital Signs 06/25/20 06/25/20 06/25/20 14:55 16:30 17:11 Temperature 102.9 F H 100.5 F H Pulse Rate 146 H 124 H 113 H Respiratory 18 18 18 Rate Blood Pressure 126/73 131/55 106/64 O2 Sat by Pulse 96 97 96 Oximetry Medical Decision Making - Lab Data Result diagrams: 06/25/20 15:24 06/25/20 15:24 Lab Results 06/25/20 06/25/20 06/25/20 Range/Units 15:24 15:24 15:24 WBC 17.6 H (3.8-10.6) k/uL RBC 5.03 (3.80-5.40) m/uL Hgb 14.3 (11.4-16.0) gm/dL Hct 43.7 (34.0-46.0) % MCV 86.9 (80.0-100.0) fL MCH 28.5 (25.0-35.0) pg MCHC 32.8 (31.0-37.0) g/dL RDW 13.7 (11.5-15.5) % Plt Count 396 (150-450) k/uL Neutrophils % 78 % Lymphocytes % 14 % Monocytes % 5 % Eosinophils % 2 % Basophils % 1 % Neutrophils # 13.7 H (1.3-7.7) k/uL Lymphocytes # 2.4 (1.0-4.8) k/uL Monocytes # 0.8 (0-1.0) k/uL Eosinophils # 0.4 (0-0.7) k/uL Basophils # 0.1 (0-0.2) k/uL PT 9.7 (9.0-12.0) sec INR 0.9 (<1.2) APTT 23.1 (22.0-30.0) sec Sodium 136 L (137-145) mmol/L Potassium 4.2 (3.5-5.1) mmol/L Chloride 100 (98-107) mmol/L Carbon Dioxide 25 (22-30) mmol/L Anion Gap 11 mmol/L BUN 16 (7-17) mg/dL Creatinine 0.88 (0.52-1.04) mg/dL Est GFR (CKD-EPI)AfAm 86 (>60 ml/min/1.73 sqM) Est GFR (CKD-EPI)NonAf 75 (>60 ml/min/1.73 sqM) Glucose 108 H (74-99) mg/dL Lactic Ac Sepsis Rflx Plasma Lactic Acid Silvio (0.7-2.0) mmol/L Calcium 9.7 (8.4-10.2) mg/dL Magnesium 1.6 (1.6-2.3) mg/dL Total Bilirubin 0.7 (0.2-1.3) mg/dL AST 26 (14-36) U/L ALT 23 (4-34) U/L Alkaline Phosphatase 75 (38-126) U/L Troponin I (0.000-0.034) ng/mL Total Protein 6.7 (6.3-8.2) g/dL Albumin 4.3 (3.5-5.0) g/dL Urine Color Urine Appearance (Clear) Urine pH (5.0-8.0) Ur Specific Swan (1.001-1.035) Urine Protein (Negative) Urine Glucose (UA) (Negative) Urine Ketones (Negative) Urine Blood (Negative) Urine Nitrite (Negative) Urine Bilirubin (Negative) Urine Urobilinogen (<2.0) mg/dL Ur Leukocyte Esterase (Negative) 06/25/20 06/25/20 06/25/20 Range/Units 15:24 15:24 15:54 WBC (3.8-10.6) k/uL RBC (3.80-5.40) m/uL Hgb (11.4-16.0) gm/dL Hct (34.0-46.0) % MCV (80.0-100.0) fL MCH (25.0-35.0) pg MCHC (31.0-37.0) g/dL RDW (11.5-15.5) % Plt Count (150-450) k/uL Neutrophils % % Lymphocytes % % Monocytes % % Eosinophils % % Basophils % % Neutrophils # (1.3-7.7) k/uL Lymphocytes # (1.0-4.8) k/uL Monocytes # (0-1.0) k/uL Eosinophils # (0-0.7) k/uL Basophils # (0-0.2) k/uL PT (9.0-12.0) sec INR (<1.2) APTT (22.0-30.0) sec Sodium (137-145) mmol/L Potassium (3.5-5.1) mmol/L Chloride (98-107) mmol/L Carbon Dioxide (22-30) mmol/L Anion Gap mmol/L BUN (7-17) mg/dL Creatinine (0.52-1.04) mg/dL Est GFR (CKD-EPI)AfAm (>60 ml/min/1.73 sqM) Est GFR (CKD-EPI)NonAf (>60 ml/min/1.73 sqM) Glucose (74-99) mg/dL Lactic Ac Sepsis Rflx Y Plasma Lactic Acid Silvio 2.3 H* (0.7-2.0) mmol/L Calcium (8.4-10.2) mg/dL Magnesium (1.6-2.3) mg/dL Total Bilirubin (0.2-1.3) mg/dL AST (14-36) U/L ALT (4-34) U/L Alkaline Phosphatase (38-126) U/L Troponin I <0.012 (0.000-0.034) ng/mL Total Protein (6.3-8.2) g/dL Albumin (3.5-5.0) g/dL Urine Color Urine Appearance (Clear) Urine pH (5.0-8.0) Ur Specific Swan (1.001-1.035) Urine Protein (Negative) Urine Glucose (UA) (Negative) Urine Ketones (Negative) Urine Blood (Negative) Urine Nitrite (Negative) Urine Bilirubin (Negative) Urine Urobilinogen (<2.0) mg/dL Ur Leukocyte Esterase (Negative) 06/25/20 Range/Units 18:19 WBC (3.8-10.6) k/uL RBC (3.80-5.40) m/uL Hgb (11.4-16.0) gm/dL Hct (34.0-46.0) % MCV (80.0-100.0) fL MCH (25.0-35.0) pg MCHC (31.0-37.0) g/dL RDW (11.5-15.5) % Plt Count (150-450) k/uL Neutrophils % % Lymphocytes % % Monocytes % % Eosinophils % % Basophils % % Neutrophils # (1.3-7.7) k/uL Lymphocytes # (1.0-4.8) k/uL Monocytes # (0-1.0) k/uL Eosinophils # (0-0.7) k/uL Basophils # (0-0.2) k/uL PT (9.0-12.0) sec INR (<1.2) APTT (22.0-30.0) sec Sodium (137-145) mmol/L Potassium (3.5-5.1) mmol/L Chloride (98-107) mmol/L Carbon Dioxide (22-30) mmol/L Anion Gap mmol/L BUN (7-17) mg/dL Creatinine (0.52-1.04) mg/dL Est GFR (CKD-EPI)AfAm (>60 ml/min/1.73 sqM) Est GFR (CKD-EPI)NonAf (>60 ml/min/1.73 sqM) Glucose (74-99) mg/dL Lactic Ac Sepsis Rflx Plasma Lactic Acid Silvio (0.7-2.0) mmol/L Calcium (8.4-10.2) mg/dL Magnesium (1.6-2.3) mg/dL Total Bilirubin (0.2-1.3) mg/dL AST (14-36) U/L ALT (4-34) U/L Alkaline Phosphatase (38-126) U/L Troponin I (0.000-0.034) ng/mL Total Protein (6.3-8.2) g/dL Albumin (3.5-5.0) g/dL Urine Color Light Yellow Urine Appearance Clear (Clear) Urine pH 6.0 (5.0-8.0) Ur Specific Swan 1.020 (1.001-1.035) Urine Protein Negative (Negative) Urine Glucose (UA) Negative (Negative) Urine Ketones Negative (Negative) Urine Blood Negative (Negative) Urine Nitrite Negative (Negative) Urine Bilirubin Negative (Negative) Urine Urobilinogen <2.0 (<2.0) mg/dL Ur Leukocyte Esterase Negative (Negative) Disposition Clinical Impression: SIRS (systemic inflammatory response syndrome) Disposition: ADMITTED IP TO THIS HOSP Condition: Fair Referrals: Teagan Camargo MD [Primary Care Provider] - 1-2 days Decision Time: 18:36
[2020-06-25 15:40] LABS: Basophils # (A) 0.1 k/uL (0-0.2); Basophils % (A) 1 %; Eosinophils # (A) 0.4 k/uL (0-0.7); Eosinophils % (A) 2 %; HCT 43.7 % (34.0-46.0); HGB 14.3 gm/dL (11.4-16.0); Lymphocytes # (A) 2.4 k/uL (1.0-4.8); Lymphocytes % (A) 14 %; MCH 28.5 pg (25.0-35.0); MCHC 32.8 g/dL (31.0-37.0); MCV 86.9 fL (80.0-100.0); Mean Platelet Volume 7.7; Monocytes # (A) 0.8 k/uL (0-1.0); Monocytes % (A) 5 %; Neutrophils # (A) 13.7 k/uL (1.3-7.7); Neutrophils % (A) 78 %; Platelet Count 396 k/uL (150-450); RBC 5.03 m/uL (3.80-5.40); RDW 13.7 % (11.5-15.5); WBC 17.6 k/uL (3.8-10.6)
[2020-06-25] MEDS ORDERED: diphenhydrAMINE 50 MG/ML 1 ML VIAL IVP STA (15:43)
[2020-06-25] MEDS ORDERED: methylPREDNISolone SOD SUCCI 125 MG/2 ML VIAL IV STA (15:43)
[2020-06-25] MEDS ORDERED: FAMOTIDINE 20 MG/2 ML VIAL IV STA (15:43)
[2020-06-25 15:48] LABS: INR 0.9 (<1.2)
[2020-06-25 15:49] LABS: Partial Thromboplastin Time 23.1 sec (22.0-30.0); Prothrombin Time 9.7 sec (9.0-12.0)
--- NOTE | 2020-06-25 15:55 | XR ---
EXAMINATION TYPE: XR chest 1V portable DATE OF EXAM: 06/25/2020 COMPARISON: 09/08/2019 HISTORY: Fever TECHNIQUE: Single view FINDINGS: There is no heart failure nor confluent pneumonic infiltrate. Costophrenic angles are clear . There are no hilar masses. There are chest leads. Bony thorax is intact. IMPRESSION: No active cardiopulmonary disease. Normal heart. No change.
[2020-06-25 16:03] LABS: Albumin 4.3 g/dL (3.5-5.0); Calcium 9.7 mg/dL (8.4-10.2); Magnesium 1.6 mg/dL (1.6-2.3); Potassium 4.2 mmol/L (3.5-5.1); Total Bilirubin 0.7 mg/dL (0.2-1.3); Total Protein 6.7 g/dL (6.3-8.2)
[2020-06-25] MEDS ORDERED: SODIUM CHLORIDE 0.9% 500 ML 500 ML IV STA (16:12)
[2020-06-25] MEDS ORDERED: metroNIDAZOLE-NS PMX 500 MG in SALINE 1 100ML.BAG IVPB STA (16:41)
--- NOTE | 2020-06-25 17:13 | CT ---
EXAMINATION TYPE: CT abdomen pelvis w con DATE OF EXAM: 06/25/2020 COMPARISON: 07/24/2016 HISTORY: Fever, abdominal pain, nausea and vomiting. CT DLP: 1631.2 mGycm Automated exposure control for dose reduction was used. CONTRAST: Performed with IV Contrast, patient injected with 100ml mL of Isovue 300. Lung bases are clear. There is no pleural effusion. Heart size is normal. There is no pericardial eff usion. Liver spleen stomach pancreas gallbladder appear normal. Bile ducts are not dilated. There is no adrenal mass. Kidneys show satisfactory contrast opacification. There is no hydronephrosi s. Ureters are not dilated. There is 2 cm cortical cyst lower pole right kidney. There is no retroper itoneal adenopathy. Ureters are not dilated. Delayed images show normal renal excretion. Bladder dist ends smoothly. There is no inguinal hernia. There is hysterectomy. There is no evidence of a pelvic m ass. There is no mesenteric edema. There is no ascites or free air. There is no bowel obstruction. Appendi x is not seen. There is no sign of thickened appendix. The lumbar vertebra have fairly normal spacing and alignment. There is no compression fracture. Bony pelvis appears intact. I see no focal bone raymond truction. There is mild atheromatous change in the abdominal aorta. IMPRESSION: Negative CT scan of the abdomen pelvis. I do not see a cause for fever and abdominal pain. There is s light enlargement of the right renal cortical cyst compared to old exam.
[2020-06-25] MEDS ORDERED: METOCLOPRAMIDE 5 MG/ML 2 ML VIAL IVP STA (17:14)
[2020-06-25 18:26] LABS: Appearance,Urine Clear (Clear); Bilirubin,Urine Negative (Negative); Blood,Urine Negative (Negative); Color,Urine Light Yellow; Glucose,Urine (UA) Negative (Negative); Ketones,Urine Negative (Negative); Leukocyte Esterase,Urine Negative (Negative); Nitrite,Urine Negative (Negative); Protein,Urine Negative (Negative); Urobilinogen,Urine <2.0 mg/dL (<2.0)
[2020-06-25] MEDS: SODIUM CHLORIDE 0.9% 1,000 ML IV SCH ×2 (20:23→23:50)
[2020-06-25] MEDS ORDERED: SODIUM CHLORIDE 0.9% 500 ML 500 ML IV ONE (22:26)
[2020-06-25] MEDS ORDERED: ALBUTEROL NEBULIZED 2.5 MG/3 ML INHALATION PRN ×2 (22:27)
[2020-06-25] MEDS ORDERED: NITROGLYCERIN SL TABS 0.4 MG TAB SUBLINGUAL PRN (22:27)
[2020-06-25] MEDS ORDERED: TEMAZEPAM 15 MG CAP PO PRN (23:12)
[2020-06-25] MEDS ORDERED: HYDROmorphone 0.5 MG/0.5 ML SYRINGE IVP PRN (23:12)
[2020-06-25] MEDS ORDERED: ALPRAZolam 0.25 MG TAB PO PRN (23:12)
[2020-06-25] MEDS: ONDANSETRON 4 MG/2 ML VIAL IVP PRN (23:49)
[2020-06-25] MEDS: buPROPion SR 150 MG TABLET.ER PO SCH (23:50)
[2020-06-26] MEDS: HYDROcodone/APAP 5-325MG 1 EACH TAB PO PRN ×2 (02:22→12:01)
[2020-06-26 04:29] LABS: Basophils % (A) 0 %; Eosinophils # (A) 0.1 k/uL (0-0.7); Eosinophils % (A) 1 %; HCT 39.8 % (34.0-46.0); HGB 12.6 gm/dL (11.4-16.0); Lymphocytes # (A) 1.6 k/uL (1.0-4.8); Lymphocytes % (A) 11 %; MCHC 31.8 g/dL (31.0-37.0); MCV 88.1 fL (80.0-100.0); Mean Platelet Volume 7.5; Monocytes # (A) 0.2 k/uL (0-1.0); Monocytes % (A) 2 %; Neutrophils # (A) 12.7 k/uL (1.3-7.7); Neutrophils % (A) 86 %; Platelet Count 353 k/uL (150-450); RBC 4.51 m/uL (3.80-5.40); WBC 14.8 k/uL (3.8-10.6)
[2020-06-26 04:40] LABS: C Reactive Protein 71.3 mg/L (<10.0); Calcium 8.7 mg/dL (8.4-10.2); Potassium 4.2 mmol/L (3.5-5.1)
[2020-06-26 05:48] LABS: Erythrocyte Sedimentation Rate 18 mm/hr (0-20)
--- NOTE | 2020-06-26 06:57 | HP ---
HISTORY AND PHYSICAL DATE OF SERVICE: 06/25/2020 CHIEF COMPLAINT: Fever, body aches and abdominal pain. HISTORY OF PRESENT ILLNESS: This 55-year-old woman with a past medical history of multiple medical problems including asthma, hyperlipidemia, hypertension, DJD, sleep apnea, being followed Dr. Camargo in the outpatient setting is complaining of fever and feeling ill today. The patient was complaining of some diffuse abdominal pain and the patient also has diarrhea, but apparently patient is taking for constipation for the last couple days. The abdominal pain was mild to moderate intensity, which diffuse intensity. The patient just completed a course of Bactrim yesterday. The patient also had recently a pain stimulator trial with leads implanted on the back in anticipation of a pain stimulator implantation. There is no history of headache, loss of consciousness, chest pain, palpitation. No history of any travel or any contact with sick individuals. The patient's lactic acid is elevated. Protocol is followed with IV fluid bolus. PAST MEDICAL HISTORY: Asthma, hyperlipidemia, hypertension, history of recent pain stimulator trial. HOME MEDICATIONS: 1. Symbicort 160/4.5 two puffs b.i.d. 2. Wellbutrin SR 150 mg. 3. Dyazide. 4. Ditropan. 5. Prilosec. 6. Nitrostat. 7. Singulair. 8. Mobic. 9. Cozaar. 10.Neurontin. 11.Cytotec. 12.Lioresal. 13.Lipitor. 14.Ecotrin. 15.Ventolin nebulizer. 16.Tylenol. Doses and route of administration reviewed. ALLERGIES: IODINATED CONTRAST DYE, LATEX, ORANGE JUICE, PENICILLIN, WHEAT. FAMILY HISTORY: History of DJD, heart murmur in the family. SOCIAL HISTORY: History of smoking. No history of current smoking or alcohol intake. REVIEW OF SYSTEMS: ENT No history of diminished hearing or vision. CARDIOVASCULAR No angina or palpitations. RESPIRATORY No cough, no hemoptysis. GI As mentioned earlier. No dysuria or hematuria. NERVOUS No numbness or weakness. ALLERGY/IMMUNOLOGY No asthma or hayfever. MUSCULOSKELETAL As mentioned earlier. HEMATOLOGY/ONCOLOGY Negative. ENDOCRINE No history of diabetes or hypothyroidism. CONSTITUTIONAL As mentioned earlier. DERMATOLOGY Negative. RHEUMATOLOGY Negative, PSYCHIATRY As mentioned earlier. EXAMINATION: Alert and oriented x3. The pulse is 103, blood pressure 130/77, respirations 16, temperature 99.1, pulse ox 94% on room air. T-max is 100.5. HEENT: Conjunctivae normal. Oral mucosa moist. NECK: No jugular venous distention. No lymph node enlargement. CARDIOVASCULAR: S1, S2, muffled. No S3, no S4, RESPIRATORY: Diminished breath sounds at the bases. No rhonchi, no crackles. ABDOMEN: Soft, obese, nontender. No mass palpable. LEGS: No edema, no swelling. NERVOUS SYSTEM: Higher functions mentioned earlier. Moves all four limbs. No focal motor or sensory deficits. LYMPHATICS: No lymph node in neck or axilla. SKIN: No rash. Signs of pain implant lead puncture in the back appears to be nontender, healing. JOINTS: No active deforming arthropathy. LABS: Lactic acid 2.1 at 3.4. The labs are WBC 17.6, sodium 136. Otherwise, CT scan of the abdomen and pelvis reviewed personally showed negative, slight enlargement of the right renal cortical cyst. Chest x-ray again reviewed personally showed no acute abnormality. EKG showed sinus tachycardia. ASSESSMENT: 1. Fever, possible sepsis primary site unknown. 2. History of recent removal of the pain stimulator trial. 3. Increased WBC. 4. Hyponatremia. 5. Elevated plasma lactic acid, possibly secondary to sepsis. 6. History of asthma. 7. Hypertension. 8. Hyperlipidemia. 9. Myocardial infarction. 10.History of degenerative joint disease. 11.History of sleep apnea. 12.History of degenerative joint disease. 13.History of back pain. 14.History of tonsillectomy. 15.History of uterine ablation. 16.History of depression. 17.Obesity with body mass index of 41. RECOMMENDATION AND SUGGESTIONS: In this 55-year-old woman who presented with multiple complex medical issues, we will monitor the patient closely, continue the current management and symptomatic treatment. At this time I recommend continue with broad-spectrum IV antibiotics, cultures, Infectious Disease evaluation. I would also recommend repeat labs in the morning. COVID-19 has been tested even though the patient does not give any history of any contacts. IV fluid bolus will repeat. Lactic acid protocol will be repeated again also. Once again, the prognosis is extremely guarded. Further recommendations to follow. MMODL / IJN: [id number] / [facility]
[2020-06-26] MEDS ORDERED: PANTOPRAZOLE 40 MG TABLET PO SCH (07:30)
[2020-06-26] MEDS: SYMBICORT 160-4.5 MCG INHALER INHALATION PRN ×2 (08:49→20:54)
[2020-06-26] MEDS: MELOXICAM 7.5 MG TAB PO SCH (08:55)
[2020-06-26] MEDS: LOSARTAN 25 MG TAB PO SCH (08:56)
[2020-06-26] MEDS: BACLOFEN 10 MG TAB PO SCH ×3 (08:56→21:09)
[2020-06-26] MEDS: OXYBUTYNIN CHLORIDE 5 MG TAB PO SCH ×2 (08:56→20:24)
[2020-06-26] MEDS: PANTOPRAZOLE 40 MG/10 ML VIAL IVP SCH ×2 (08:57→20:24)
[2020-06-26] MEDS: LORATADINE 10 MG TAB PO SCH (08:57)
[2020-06-26] MEDS: HEPARIN SODIUM,PORCINE 5,000 UNIT/ML 1 ML VIAL SQ SCH ×2 (08:57→20:24)
[2020-06-26] MEDS: ASPIRIN 81 MG PO SCH (08:57)
[2020-06-26] MEDS: GABAPENTIN 300 MG CAP PO SCH ×3 (08:57→21:09)
[2020-06-26] MEDS: TRIAMTERENE-HCTZ 37.5-25MG 1 EACH CAP PO SCH (08:58)
[2020-06-26] MEDS: SODIUM CHLORIDE 0.9% 1,000 ML IV SCH ×2 (10:00→18:11)
--- NOTE | 2020-06-26 16:29 | PN ---
PROGRESS NOTE DATE OF SERVICE: 06/26/2020 This 55-year-old woman was admitted with fever with possible sepsis and had unknown primary. The cultures are negative so far. Abdomen and pelvis CAT scan also did not show any acute abnormality. The patient recently had a pain stimulator trial implants on the back, but the site appears to be healthy and healing at this time. Cultures are negative as mentioned earlier. The patient started on empiric antibiotics. White count is still elevated at 14.8, down from 17.6 yesterday. The temperature also has come down to normal. Past medical history reviewed. REVIEW OF SYSTEMS: CARDIOVASCULAR SYSTEM: No angina. RESPIRATION as mentioned earlier. GI: As mentioned earlier. : No dysuria. NERVOUS SYSTEM: No numbness or weakness. CURRENT MEDICATIONS: Reviewed and include: 1. Tylenol. 2. Stokes. 3. Ventolin. 4. Xanax. 5. Aspirin. 6. Lipitor. 7. Lioresal. 8. Symbicort. 9. Wellbutrin. 10.Rocephin. 11.Neurontin. 12.Heparin. 13.Dilaudid. 14.Claritin. 15.Cozaar. 16.Mobic. 17.Singulair. 18.Nitrostat. 19.Zofran. 20.Ditropan. 21.Protonix. 22.Restoril. 23.Dyazide. 24.Doses are reviewed. PHYSICAL EXAM: Patient is alert, oriented x3. Pulse 90. Blood pressure is 117/67, respiration 18, temperature 96.7, pulse ox 98% on room air. HEENT: Conjunctivae normal. NECK: No JVD. CARDIOVASCULAR: S1, S2 muffled. RESPIRATION: Breath sounds diminished in the bases. A few scattered rhonchi and crackles. ABDOMEN: Soft, nontender. LEGS are no edema. No swelling. NERVOUS SYSTEM: No focal deficits. LABS: At this time shows WBC 14.8, hemoglobin 12.6. Sodium 130. Potassium 4.2. ASSESSMENT: 1. Fever, possible sepsis, the primary site unknown. 2. History of recent removal of the pain stimulator trial. 3. Increased WBC. 4. Hyponatremia. 5. Elevated plasma lactic acid possibly secondary to sepsis. 6. History of asthma. 7. Hypertension. 8. Hyperlipidemia. 9. Myocardial infarction. 10.History of degenerative joint disease. 11.History of sleep apnea. 12.History of back pain. 13.History of tonsillectomy. 14.History of uterine ablation. 15.History of depression. 16.Obesity, body mass index of 41. RECOMMENDATIONS: Recommend to continue current medications, management and symptomatic treatment. Otherwise, at this time, I recommend continue with empiric antibiotics. Guarded prognosis. Further recommendations to follow. Otherwise I would also recommend a 2D echo with Doppler. MMODL / IJN: [id number] /
[2020-06-26] MEDS: buPROPion SR 150 MG TABLET.ER PO SCH (20:24)
[2020-06-26] MEDS: ATORVASTATIN 80 MG TAB PO SCH (20:24)
[2020-06-26] MEDS: MONTELUKAST 10 MG TAB PO SCH (20:24)
--- NOTE | 2020-06-26 23:49 | P.CONS ---
History of Present Illness - Reason for Consult Consult date: 06/26/20 sirs Requesting physician: Arnulfo Barrios - Chief Complaint Not feeling well x one day - History of Present Illness Patient is a 55-year-old female presenting to the ER at [facility] yesterday with a chief complaints of not feeling well 1 day, patient was complaining of feeling nauseated vomiting and unable to keep anything down and also coming of some epigastric discomfort more of a dull aching pain at times sharp 4-5 out of 10 and no radiation and did have diarrhea with multiple loose stools denies any blood or mucus in the stool, patient d enies having any urinary symptoms of burning or frequency denies having any URI symptoms no chest pain or shortness of breath very minimal cough which is dry with the symptoms the patient was evaluated by the ER physician on arrival to the ER the patient did have a fever of 102F patient had did have a elevated white count of 17,000 with the patient UA was negative she did have elevated lactic acid level enzymes are normal patient chest x-ray was negative for any acute infiltrate CT of abdominal pelvis was reportedly negative as well patient was started on Rocephin 1 g daily and infection disease was consulted for further management of antibiotic therapy Review of Systems Positive point has been mentioned in the HPI rest of the systems are negative Past Medical History Past Medical History: Asthma, Hyperlipidemia, Hypertension, Myocardial Infarction (LA), Osteoarthritis (OA), Sleep Apnea/CPAP/BIPAP Additional Past Medical History / Comment(s): bulging disc Last Myocardial Infarction Date:: 03/25/2018 History of Any Multi-Drug Resistant Organisms: None Reported Past Surgical History: Adenoidectomy, Hysterectomy, Joint Replacement, Orthopedic Surgery, Tonsillectomy, Tubal Ligation, Uterine Ablation Additional Past Surgical History / Comment(s): Right knee replacement Past Anesthesia/Blood Transfusion Reactions: No Reported Reaction Past Psychological History: Depression Smoking Status: Never smoker Past Alcohol Use History: None Reported Past Drug Use History: None Reported - Past Family History Mother Family Medical History: Osteoarthritis (OA) Additional Family Medical History / Comment(s): heart murmur Father Family Medical History: Cancer, Diabetes Mellitus, Hypertension Medications and Allergies Home Medications Medication Instructions Recorded Confirmed Type Gabapentin [Neurontin] 300 mg PO TID 03/26/18 06/25/20 History buPROPion SR [Wellbutrin SR] 150 mg PO HS 03/26/18 06/25/20 History Atorvastatin [Lipitor] 80 mg PO HS #30 tab 03/28/18 06/25/20 Rx Nitroglycerin Sl Tabs [Nitrostat] 0.4 mg SUBLINGUAL Q5M PRN #25 tab 03/28/18 06/25/20 Rx Acetaminophen Tab [Tylenol Tab] 1,000 mg PO Q6H PRN 06/25/20 06/25/20 History Albuterol Inhaler [Ventolin Hfa 2 puff INHALATION RT-Q4H PRN 06/25/20 06/25/20 History Inhaler] Albuterol Nebulized [Ventolin 2.5 mg INHALATION RT-QID PRN 06/25/20 06/25/20 History Nebulized] Aspirin EC [Ecotrin Low Dose] 81 mg PO DAILY 06/25/20 06/25/20 History Baclofen [Lioresal] 5 mg PO TID 06/25/20 06/25/20 History Budesonide/Formoterol Fumarate 2 puff INHALATION RT-BID PRN 06/25/20 06/25/20 History [Symbicort 160-4.5 Mcg Inhaler] Cetirizine HCl [Zyrtec] 10 mg PO DAILY 06/25/20 06/25/20 History Losartan [Cozaar] 25 mg PO DAILY 06/25/20 06/25/20 History Meloxicam [Mobic] 15 mg PO DAILY 06/25/20 06/25/20 History Montelukast [Singulair] 10 mg PO HS 06/25/20 06/25/20 History Omeprazole [PriLOSEC] 20 mg PO BID 06/25/20 06/25/20 History Oxybutynin Chloride [Ditropan] 5 mg PO BID 06/25/20 06/25/20 History Triamterene-Hctz 37.5-25Mg 1 cap PO DAILY 06/25/20 06/25/20 History [Dyazide 37.5-25 Capsule] Allergies Allergy/AdvReac Type Severity Reaction Status Date / Time Iodinated Contrast Media Allergy Dyspnea Verified 06/25/20 16:59 [Iodinated Contrast Media - IV Dye] latex Allergy Rash/Hives Verified 06/25/20 16:59 orange juice [[place]] Allergy Itching Verified 06/25/20 16:59 Penicillins Allergy Anaphylaxis Verified 06/25/20 16:59 wheat Allergy Itching Verified 06/25/20 16:59 Physical Exam Vitals: Vital Signs Temp Pulse Pulse Resp BP BP Pulse Ox 06/26/20 15:00 97.8 F 77 17 116/66 96 06/26/20 11:56 96.7 F L 90 117/67 98 06/26/20 07:00 97.5 F L 84 18 112/57 95 06/26/20 04:00 16 06/26/20 00:33 98.7 F 94 16 102/49 94 L 06/26/20 00:00 18 06/25/20 20:18 18 06/25/20 20:06 99.1 F 103 H 16 132/77 95 06/25/20 20:00 18 06/25/20 19:00 96 18 06/25/20 18:40 100 21 06/25/20 18:20 101 H 22 115/50 06/25/20 18:00 105 H 18 98/54 96 06/25/20 17:40 105 H 18 98/54 96 06/25/20 17:20 109 H 23 106/64 96 06/25/20 17:11 100.5 F H 113 H 18 106/64 96 06/25/20 17:00 131/55 93 L Intake and Output 06/26/20 06/26/20 06/26/20 06:59 14:59 22:59 Other: # Voids 4 3 GENERAL DESCRIPTION: Middle-aged female lying in bed, no distress. No tachypnea or accessory muscle of respiration use. HEENT: Shows Pallor , no scleral icterus. Oral mucous membrane is dry. No pharyngeal erythema or thrush NECK: Trachea central, no thyromegaly. LUNGS: Unlabored breathing. Clear to auscultation anteriorly. No wheeze or crackle. HEART: S1, S2, regular rate and rhythm. No loud murmur ABDOMEN: Soft, no tenderness , guarding or rigidity, no organomegaly EXTREMITIES: No edema of feet. SKIN: No rash, no masses palpable. NEUROLOGICAL: The patient is awake, alert, oriented x3, mood and affect normal. Results CBC & Chem 7: 06/26/20 04:15 06/26/20 04:15 Labs: Abnormal Lab Results - Last 24 Hours (Table) 06/25/20 06/25/20 06/26/20 Range/Units 18:51 21:20 00:29 WBC (3.8-10.6) k/uL Neutrophils # (1.3-7.7) k/uL BUN (7-17) mg/dL Glucose (74-99) mg/dL Plasma Lactic Acid Silvio 2.1 H* 3.4 H* 3.2 H* (0.7-2.0) mmol/L C-Reactive Protein (<10.0) mg/L 06/26/20 06/26/20 06/26/20 Range/Units 04:15 04:15 04:15 WBC 14.8 H (3.8-10.6) k/uL Neutrophils # 12.7 H (1.3-7.7) k/uL BUN 20 H (7-17) mg/dL Glucose 149 H (74-99) mg/dL Plasma Lactic Acid Silvio 2.1 H* (0.7-2.0) mmol/L C-Reactive Protein 71.3 H (<10.0) mg/L Microbiology - Last 24 Hours (Table) 06/26/20 04:30 Urine Culture - Preliminary Urine,Clean Catch Assessment and Plan Assessment: 1- patient presented to hospital with generalized weakness not feeling well in this patient did have a fever did have elevated white count and predominantly GI symptoms of nausea vomiting and diarrhea so far work up including chest x-ray CT of abdominal pelvis and urine has been negative patient did have elevated white count on admission however he showing a downward trend with the Rocephin therapy and the patient fever has resolved as well With a question of possible bacterial gastroenteritis (1) Gastroenteritis Current Visit: Yes Status: Acute Code(s): K52.9 - NONINFECTIVE GASTROENTERITIS AND COLITIS, UNSPECIFIED SNOMED Code(s): 81589212 (2) SIRS (systemic inflammatory response syndrome) Current Visit: Yes Status: Acute Code(s): R65.10 - SIRS OF NON-INFECTIOUS ORIGIN W/O ACUTE ORGAN DYSFUNCTION SNOMED Code(s): 286454704 Plan: 1- we will obtain stool for C. diff and stool culture 2- Rocephin 1 g daily to continue 3- IV fluids We will follow on clinical condition and cultures to further adjust medication if needed Thank you for this consultation will follow this patient with you Time with Patient: Greater than 30
[2020-06-27] MEDS: HYDROcodone/APAP 5-325MG 1 EACH TAB PO PRN ×3 (03:17→17:42)
[2020-06-27] MEDS: SODIUM CHLORIDE 0.9% 1,000 ML IV SCH ×3 (03:19→21:06)
[2020-06-27 03:49] LABS: Appearance,Urine Clear (Clear); Bilirubin,Urine Negative (Negative); Blood,Urine Negative (Negative); Color,Urine Light Yellow; Glucose,Urine (UA) Negative (Negative); Ketones,Urine Negative (Negative); Leukocyte Esterase,Urine Small (Negative); Nitrite,Urine Negative (Negative); PH, Urine 5.5 (5.0-8.0); Protein,Urine Negative (Negative); RBC,Urine <1 /hpf (0-5); Specific Gravity,Urine 1.008 (1.001-1.035); Squamous Epithelial Cell,Urine 2 /hpf (0-4); Urobilinogen,Urine <2.0 mg/dL (<2.0); WBC,Urine 4 /hpf (0-5)
[2020-06-27] MEDS: ASPIRIN 81 MG PO SCH (07:40)
[2020-06-27] MEDS: LOSARTAN 25 MG TAB PO SCH (07:40)
[2020-06-27] MEDS: OXYBUTYNIN CHLORIDE 5 MG TAB PO SCH ×2 (07:41→21:07)
[2020-06-27] MEDS: MELOXICAM 7.5 MG TAB PO SCH (07:41)
[2020-06-27] MEDS: LORATADINE 10 MG TAB PO SCH (07:41)
[2020-06-27] MEDS: GABAPENTIN 300 MG CAP PO SCH ×3 (07:41→21:07)
[2020-06-27] MEDS: TRIAMTERENE-HCTZ 37.5-25MG 1 EACH CAP PO SCH (07:41)
[2020-06-27] MEDS: BACLOFEN 10 MG TAB PO SCH ×3 (07:42→21:07)
[2020-06-27] MEDS: PANTOPRAZOLE 40 MG/10 ML VIAL IVP SCH ×2 (07:42→21:07)
[2020-06-27] MEDS: HEPARIN SODIUM,PORCINE 5,000 UNIT/ML 1 ML VIAL SQ SCH ×2 (07:42→21:07)
[2020-06-27 07:58] LABS: Basophils # (A) 0.1 k/uL (0-0.2); Basophils % (A) 1 %; Eosinophils # (A) 0.3 k/uL (0-0.7); Eosinophils % (A) 2 %; HCT 38.1 % (34.0-46.0); Lymphocytes # (A) 4.9 k/uL (1.0-4.8); Lymphocytes % (A) 29 %; MCHC 31.5 g/dL (31.0-37.0); MCV 89.1 fL (80.0-100.0); Mean Platelet Volume 7.6; Monocytes # (A) 0.7 k/uL (0-1.0); Monocytes % (A) 4 %; Neutrophils # (A) 10.9 k/uL (1.3-7.7); Neutrophils % (A) 64 %; Platelet Count 341 k/uL (150-450); RBC 4.28 m/uL (3.80-5.40); RDW 14.2 % (11.5-15.5); WBC 17.1 k/uL (3.8-10.6)
[2020-06-27 08:17] LABS: African American GFR (CKD) >90 (>60 ml/min/1.73 sqM); Anion Gap 6 mmol/L; Blood Urea Nitrogen 18 mg/dL (7-17); Calcium 8.2 mg/dL (8.4-10.2); Carbon Dioxide 25 mmol/L (22-30); Chloride 109 mmol/L (98-107); Glucose 87 mg/dL (74-99); Non-African American GFR(CKD) >90 (>60 ml/min/1.73 sqM); Potassium 4.3 mmol/L (3.5-5.1); Sodium 140 mmol/L (137-145)
--- NOTE | 2020-06-27 11:00 | ECHOF ---
Referral Reason:fever MEASUREMENTS -------- HEIGHT: 154.9 cm WEIGHT: 98.4 kg BP: 132/69 IVSd: 1.1 cm (0.6 - 1.1) LVIDd: 4.7 cm (3.9 - 5.3) LVPWd: 1.2 cm (0.6 - 1.1) IVSs: 1.8 cm LVIDs: 2.8 cm LVPWs: 1.8 cm LA Diam: 3.7 cm (2.7 - 3.8) RVIDd: 3.1 cm (< 3.3) Ao Diam: 2.7 cm (2.0 - 3.7) AV Cusp: 2.2 cm (1.5 - 2.6) EPSS: 0.2 cm MV E Duncan: 1.27 m/s MV DecT: 199 ms MV A Duncan: 0.82 m/s MV E/A Ratio: 1.56 AR PHT: 1095 ms MV EF SLOPE: 87.62 mm/s (70 - 150) MV EXCURSION: 12.17 mm (> 18.000) FINDINGS -------- Sinus rhythm. This was a technically adequate study. The left ventricular size is normal. There is borderline concentric left ventricular hypertrophy. Overall left ventricular systolic function is normal with, an EF between 60 - 65 %. The right ventricle is normal in size. The left atrial size is normal. The right atrium is normal in size. Interatrial and interventricular septum intact. The aortic valve is trileaflet and appears structurally normal. Trace to mild aortic regurgitation. Mild mitral regurgitation is present. Trace tricuspid regurgitation present. Trace/mild (physiologic) pulmonic regurgitation. The aortic root size is normal. Normal inferior vena cava with normal inspiratory collapse consistent with estimated right atrial pre ssure of 5 mmHg. The inferior vena cava is mildly dilated. There is no pericardial effusion. CONCLUSIONS -------- 1. The left ventricular size is normal. 2. There is borderline concentric left ventricular hypertrophy. 3. Overall left ventricular systolic function is normal with, an EF between 60 - 65 %. 4. The aortic valve is trileaflet and appears structurally normal. 5. Trace to mild aortic regurgitation. 6. Mild mitral regurgitation is present. 7. Trace tricuspid regurgitation present. 8. Trace/mild (physiologic) pulmonic regurgitation. 9. The inferior vena cava is mildly dilated. 10. There is no pericardial effusion. LEGAL RESEARCH ANALYST: Gisella Jefferson RDCS
[2020-06-27] MEDS: SYMBICORT 160-4.5 MCG INHALER INHALATION PRN ×2 (12:22→20:21)
--- NOTE | 2020-06-27 14:18 | P.PN ---
Subjective Progress Note Date: 06/27/20 Principal diagnosis: This is a 55-year-old female who was recently admitted with fevers with possible sepsis, present on admission and is being closely monitored. Unknown source of primary infection. Urine and blood cultures thus far remain negative. Patient is maintained on IV ceftriaxone and will continue at this time. Infectious disease is following. White blood count is 17.1 today. Current sodium is 140, BUNs is 18, creatinine is 0.71. Lactic acid has improved. Covid 19 testing currently pending. Patient is maintained on bronchodilators and will continue at this time. Patient stated upon ER presentation patient was having multiple episodes of diarrhea although has not had a bowel movement since. Specimen to test for C. diff was ordered although currently uncollected. Patient has remained afebrile over 24 hours. Review of systems: Constitutional: Reports mild fatigue, no reports of fevers or chills Cardiovascular: No reports of chest pain or palpitations Respiratory: Reports some mild shortness of breath and cough GI: No reports of nausea, vomiting, or diarrhea : No reports of dysuria or retention Neurovascular: No reports of weakness or numbness Active Medications Acetaminophen (Tylenol Tab) 1,000 mg PO Q6H PRN PRN Reason: Fever Hydrocodone Bitart/Acetaminophen ([place] 5-325) 1 each PO Q6HR PRN PRN Reason: Pain Last Admin: 06/27/20 11:57 Dose: 1 each Documented by: Albuterol Sulfate (Ventolin Nebulized) 2 mg INHALATION RT-Q4H PRN PRN Reason: Shortness Of Breath Albuterol Sulfate (Ventolin Nebulized) 2.5 mg INHALATION RT-QID PRN PRN Reason: Shortness Of Breath Alprazolam (Xanax) 0.25 mg PO TID PRN PRN Reason: Anxiety Aspirin (Aspirin) 81 mg PO DAILY [facility] Last Admin: 06/27/20 07:40 Dose: 81 mg Documented by: Atorvastatin Calcium (Lipitor) 80 mg PO HS [facility] Last Admin: 06/26/20 20:24 Dose: 80 mg Documented by: Baclofen (Lioresal) 5 mg PO TID [facility] Last Admin: 06/27/20 07:42 Dose: 5 mg Documented by: Budesonide/Formoterol Fumarate (Symbicort 160-4.5 Mcg Inhaler) 2 puff INHALATION RT-BID PRN PRN Reason: Shortness Of Breath Last Admin: 06/26/20 20:54 Dose: 2 puff Documented by: Bupropion HCl (Wellbutrin Sr) 150 mg PO [facility] Last Admin: 06/26/20 20:24 Dose: 150 mg Documented by: Gabapentin (Neurontin) 300 mg PO TID [facility] Last Admin: 06/27/20 07:41 Dose: 300 mg Documented by: Heparin Sodium (Porcine) (Heparin) 5,000 unit SQ Q12HR [facility] Last Admin: 06/27/20 07:42 Dose: 5,000 unit Documented by: Hydromorphone HCl (Dilaudid) 0.5 mg IVP Q6HR PRN PRN Reason: Severe Pain Sodium Chloride (Saline 0.9%) 1,000 mls @ 130 mls/hr IV .Q7H42M [facility] Last Admin: 06/27/20 03:19 Dose: 130 mls/hr Documented by: Ceftriaxone Sodium 1 gm/ (Sodium Chloride) 50 mls @ 100 mls/hr IVPB Q24H [facility] Last Admin: 06/26/20 16:18 Dose: 100 mls/hr Documented by: Loratadine (Claritin) 10 mg PO DAILY [facility] Last Admin: 06/27/20 07:41 Dose: 10 mg Documented by: Losartan Potassium (Cozaar) 25 mg PO DAILY [facility] Last Admin: 06/27/20 07:40 Dose: 25 mg Documented by: Meloxicam (Mobic) 15 mg PO DAILY [facility] Last Admin: 06/27/20 07:41 Dose: 15 mg Documented by: Montelukast Sodium (Singulair) 10 mg PO [facility] Last Admin: 06/26/20 20:24 Dose: 10 mg Documented by: Nitroglycerin (Nitrostat) 0.4 mg SUBLINGUAL Q5M PRN PRN Reason: Chest Pain Ondansetron HCl (Zofran) 4 mg IVP Q6HR PRN PRN Reason: Nausea And Vomiting Last Admin: 06/25/20 23:49 Dose: 4 mg Documented by: Oxybutynin Chloride (Ditropan) 5 mg PO BID [facility] Last Admin: 06/27/20 07:41 Dose: 5 mg Documented by: Pantoprazole Sodium (Protonix) 40 mg IVP BID [facility] Last Admin: 06/27/20 07:42 Dose: 40 mg Documented by: Temazepam (Restoril) 15 mg PO HS PRN PRN Reason: Insomnia Triamterene/HCTZ (Dyazide) 1 each PO DAILY [facility] Last Admin: 06/27/20 07:41 Dose: 1 each Documented by: Objective - Vital Signs Vital signs: Vital Signs Temp 97.8 F 06/27/20 07:00 Pulse 79 06/27/20 07:45 Resp 20 06/27/20 07:45 BP 135/64 06/27/20 07:00 Pulse Ox 96 06/27/20 07:00 Intake & Output 06/26/20 06/27/20 06/27/20 18:59 06:59 18:59 Intake Total 200 Balance 200 Intake: Oral 200 Other: # Voids 3 3 - Exam Gen: This is a 55-year-old female sitting up in the chair, awake, alert and oriented 3, well-developed, well-nourished, obese. Temp is 97.8F, pulse is 79, respirations are 20, blood pressure is 135/64, oxygen saturation is 96% on room air. HEENT: Head is atraumatic, normocephalic. Pupils equal, round. Sclerae is anicteric. NECK: Supple. No JVD. No lymphadenopathy. No thyromegaly. LUNGS: Breath sounds diminished bilaterally with a few scattered rhonchi and crackles noted. No intercostal retractions. HEART: S1, S2 are muffled ABDOMEN: Soft. Obese. Bowel sounds are present. No masses. No tenderness. EXTREMITIES: No pedal edema. No calf tenderness. NEUROLOGICAL: Patient is awake, alert and oriented x3. Cranial nerves 2 through 12 are grossly intact. - Labs CBC & Chem 7: 06/27/20 07:02 06/27/20 07:02 Labs: Abnormal Lab Results - Last 24 Hours (Table) 06/27/20 06/27/20 06/27/20 Range/Units 03:31 07:02 07:02 WBC 17.1 H (3.8-10.6) k/uL Neutrophils # 10.9 H (1.3-7.7) k/uL Lymphocytes # 4.9 H (1.0-4.8) k/uL Chloride 109 H (98-107) mmol/L BUN 18 H (7-17) mg/dL Calcium 8.2 L (8.4-10.2) mg/dL Ur Leukocyte Esterase Small H (Negative) Microbiology - Last 24 Hours (Table) 06/25/20 15:26 Blood Culture - Preliminary Blood No Growth after 24 hours 06/26/20 04:30 Urine Culture - Preliminary Urine,Clean Catch Assessment and Plan Assessment: Fever, possible sepsis, primary site unknown History of recent removal of the pain stimulator trial Increased WBC Hyponatremia, improved Elevated plasma lactic acid possibly secondary to sepsis, present on admission, improved History of asthma Hypertension Hyperlipidemia Myocardial infarction history of degenerative joint disease History of sleep apnea history of back pain History of tonsillectomy History of uterine ablation History of depression Obesity, with a body mass index of 41 Recommend patient and discussion: Recommend to continue current medications, management, and symptomatic treatment. Patient underwent 2-D echo showing borderline concentric left ventricular hypertrophy with overall LV function is normal with an EF between 60 and 65% with mild mitral regurgitation and a trace of tricuspid regurgitation present. Patient is maintained on IV ceftriaxone and will continue at this time. IV fluids decreased. Urine and blood cultures thus far have been negative. Infectious disease is following. Prognosis is guarded. Further recommendations to follow.
[2020-06-27] MEDS: buPROPion SR 150 MG TABLET.ER PO SCH (21:06)
[2020-06-27] MEDS: MONTELUKAST 10 MG TAB PO SCH (21:07)
[2020-06-27] MEDS: ATORVASTATIN 80 MG TAB PO SCH (21:07)
--- NOTE | 2020-06-27 22:58 | PN ---
PROGRESS NOTE DATE OF SERVICE: 06/27/2020 REASON FOR FOLLOWUP: Fever and a question of gastroenteritis. INTERVAL HISTORY: The patient is currently afebrile. The patient is feeling slightly better. The patient is breathing comfortably. The patient denies having any chest pain or shortness of breath. She still has some cough, but not bringing up any sputum. No nausea, no vomiting. No abdominal pain or diarrhea. PHYSICAL EXAMINATION: Blood pressure 122/60 with a pulse of 70, temperature 98.1. She is 95% on room air. General description is a middle-aged female up in the room in no distress. RESPIRATORY SYSTEM: Unlabored breathing with decreased breath sounds at the base. No wheeze. HEART: S1, S2. Regular rate and rhythm. ABDOMEN: Soft. No tenderness. LABS: BUN of 18, creatinine 0.71. White count is 17.1. DIAGNOSTIC IMPRESSION AND PLAN: Patient admitted to hospital with a fever, nausea ,vomiting. Some abdominal discomfort and diarrhea. CT of abdomen and pelvis was negative. Stool culture and C difficile have been requested but not done. Patient to continue with Rocephin and we will monitor her clinical course closely. MMODL / IJN: [id number] / MTDD
[2020-06-28] MEDS: HYDROcodone/APAP 5-325MG 1 EACH TAB PO PRN ×4 (02:02→21:35)
[2020-06-28] MEDS: SYMBICORT 160-4.5 MCG INHALER INHALATION PRN (07:28)
[2020-06-28] MEDS: TRIAMTERENE-HCTZ 37.5-25MG 1 EACH CAP PO SCH (07:43)
[2020-06-28] MEDS: PANTOPRAZOLE 40 MG/10 ML VIAL IVP SCH ×2 (07:43→21:33)
[2020-06-28] MEDS: HEPARIN SODIUM,PORCINE 5,000 UNIT/ML 1 ML VIAL SQ SCH ×2 (07:43→21:35)
[2020-06-28] MEDS: OXYBUTYNIN CHLORIDE 5 MG TAB PO SCH ×2 (07:43→21:33)
[2020-06-28] MEDS: LORATADINE 10 MG TAB PO SCH (07:44)
[2020-06-28] MEDS: ASPIRIN 81 MG PO SCH (07:44)
[2020-06-28] MEDS: BACLOFEN 10 MG TAB PO SCH ×3 (07:44→21:33)
[2020-06-28] MEDS: GABAPENTIN 300 MG CAP PO SCH ×3 (07:44→21:33)
[2020-06-28] MEDS: MELOXICAM 7.5 MG TAB PO SCH (07:44)
[2020-06-28] MEDS: LOSARTAN 25 MG TAB PO SCH (07:45)
[2020-06-28 07:49] LABS: Calcium 8.8 mg/dL (8.4-10.2)
[2020-06-28 08:23] LABS: Basophils # (A) 0.1 k/uL (0-0.2); Basophils % (A) 1 %; Eosinophils # (A) 0.8 k/uL (0-0.7); Eosinophils % (A) 6 %; HCT 40.9 % (34.0-46.0); Hypochromasia Slight; Lymphocytes # (A) 5.1 k/uL (1.0-4.8); Lymphocytes % (A) 44 %; MCH 28.8 pg (25.0-35.0); MCHC 31.7 g/dL (31.0-37.0); MCV 90.7 fL (80.0-100.0); Mean Platelet Volume 7.6; Monocytes # (A) 0.6 k/uL (0-1.0); Monocytes % (A) 5 %; Neutrophils # (A) 4.9 k/uL (1.3-7.7); Neutrophils % (A) 42 %; Platelet Count 372 k/uL (150-450); RDW 14.1 % (11.5-15.5); WBC 11.8 k/uL (3.8-10.6)
[2020-06-28 10:14] LABS: Anisocytosis (M) Present
--- NOTE | 2020-06-28 14:08 | P.PN ---
Subjective Progress Note Date: 06/28/20 Principal diagnosis: This is a 55-year-old female who was recently admitted with fevers with possible sepsis, present on admission and is being closely monitored. Unknown source of primary infection. Urine and blood cultures thus far remain negative. Patient is maintained on IV ceftriaxone and will continue at this time. Infectious disease is following. White blood count is 17.1 today. Current sodium is 140, BUNs is 18, creatinine is 0.71. Lactic acid has improved. Covid 19 testing currently pending. Patient is maintained on bronchodilators and will continue at this time. Patient stated upon ER presentation patient was having multiple episodes of diarrhea although has not had a bowel movement since. Specimen to test for C. diff was ordered although currently uncollected. Patient has remained afebrile over 24 hours. Review of systems: Constitutional: Reports mild fatigue, no reports of fevers or chills Cardiovascular: No reports of chest pain or palpitations Respiratory: Reports some mild shortness of breath and cough GI: No reports of nausea, vomiting, or diarrhea : No reports of dysuria or retention Neurovascular: No reports of weakness or numbness 06/28/2020 Patient is seen and examined and follow-up today and continues to be dyspneic with exertion. Patient is currently maintained on room air and will continue with breathing inhalational treatments at this time. Covid 19 testing was negative. Infectious disease is following. Patient is currently maintained on IV ceftriaxone and will continue at this time. White blood count slowly tr ending down and is currently 11.8. Urine and blood cultures remain negative. Patient denies any chest pain, worsening shortness of breath, or palpitations. Patient is afebrile. No reports of nausea or vomiting and patient is tolerating diet. Patient states she is passing gas with minimal bloating of the abdomen although has not had a bowel movement yet. A bone scan was ordered and is currently pending. Instructed the patient to increase activity as tolerated. Objective - Vital Signs Vital signs: Vital Signs Temp 96.5 F L 06/28/20 07:00 Pulse 70 06/28/20 07:47 Resp 18 06/28/20 07:47 BP 123/83 06/28/20 07:00 Pulse Ox 95 06/28/20 07:00 Intake & Output 06/27/20 06/28/20 06/28/20 18:59 06:59 18:59 Intake Total 1250 Balance 1250 Intake: Intake, IV Titration 650 Amount Sodium Chloride 0.9% 1, 600 000 ml @ 130 mls/hr IV . Q7H42M [facility] Rx#:[id number] cefTRIAXone 1 gm In 50 Sodium Chloride 0.9% 50 ml @ 100 mls/hr IVPB Q24H [facility] Rx#:[id number] Oral 600 - Exam Gen: This is a 55-year-old female sitting up in the chair, awake, alert and oriented 3, well-developed, well-nourished, obese. Temp is 96.5F, pulse is 70, respirations are 18, blood pressure is 123/83, oxygen saturation is 95% on room air. HEENT: Head is atraumatic, normocephalic. Pupils equal, round. Sclerae is anicteric. NECK: Supple. No JVD. No lymphadenopathy. No thyromegaly. LUNGS: Breath sounds diminished bilaterally with a few scattered rhonchi noted. No intercostal retractions. HEART: S1, S2 are muffled ABDOMEN: Soft. Obese. Bowel sounds are present. No masses. No tenderness. EXTREMITIES: No pedal edema. No calf tenderness. NEUROLOGICAL: Patient is awake, alert and oriented x3. Cranial nerves 2 through 12 are grossly intact. - Labs CBC & Chem 7: 06/28/20 06:52 06/28/20 06:52 Labs: Abnormal Lab Results - Last 24 Hours (Table) 06/28/20 06/28/20 Range/Units 06:52 06:52 WBC 11.8 H (3.8-10.6) k/uL Lymphocytes # 5.1 H (1.0-4.8) k/uL Eosinophils # 0.8 H (0-0.7) k/uL BUN 20 H (7-17) mg/dL Microbiology - Last 24 Hours (Table) 06/25/20 15:26 Blood Culture - Preliminary Blood No Growth after 48 hours 06/26/20 04:30 Urine Culture - Final Urine,Clean Catch Assessment and Plan Assessment: Fever, possible sepsis, primary site unknown History of recent removal of the pain stimulator trial Increased WBC Hyponatremia, improved Elevated plasma lactic acid possibly secondary to sepsis, present on admission, improved History of asthma Hypertension Hyperlipidemia Myocardial infarction history of degenerative joint disease History of sleep apnea history of back pain History of tonsillectomy History of uterine ablation History of depression Obesity, with a body mass index of 41 Recommend patient and discussion: Recommend to continue current medications, management, and symptomatic treatment. Bone scan ordered and currently pending at this time. Patient is maintained on IV ceftriaxone and will continue at this time. Urine and blood cultures thus far have been negative. Infectious disease is following. Prognosis is guarded. Further recommendations to follow. Possible discharge in 24-48 hours.
[2020-06-28] MEDS: SODIUM CHLORIDE 0.9% 1,000 ML IV SCH (21:32)
[2020-06-28] MEDS: MONTELUKAST 10 MG TAB PO SCH (21:33)
[2020-06-28] MEDS: buPROPion SR 150 MG TABLET.ER PO SCH (21:34)
--- NOTE | 2020-06-28 21:58 | PN ---
PROGRESS NOTE DATE OF SERVICE: 06/28/2020 REASON FOR FOLLOWUP: Fever. INTERVAL HISTORY: Patient is currently afebrile. The patient is feeling better. Breathing comfortably. The patient denies having any chest pain or shortness of breath. Very minimal cough. Denies having any further vomiting. Diarrhea has resolved. No abdominal pain. No urinary symptoms. PHYSICAL EXAMINATION: Blood pressure 175/95 with a pulse of 73, temperature 97.0. She is 98% on room air. General description is a middle-aged female lying in bed in no distress. Respiratory system: Unlabored breathing, clear to auscultation anteriorly. Heart S1, S2, regular rate and rhythm. Abdomen is soft with no tenderness. LABS: Hemoglobin is 13.5, white count 11.9 with a BUN of 20, creatinine 1.01. Blood and urine cultures have been negative. Stool studies were requested but not done. DIAGNOSTIC IMPRESSION AND PLAN: Patient admitted to the hospital with fever, predominant gastrointestinal symptoms with concern for gastroenteritis, possible bacteria. Overall improvement on Rocephin. To continue to finish therapy with oral Ceftin. Continue supportive care. MMODL / IJN: [id number] /
[2020-06-28] MEDS: ATORVASTATIN 80 MG TAB PO SCH (22:08)
[2020-06-29] MEDS: SYMBICORT 160-4.5 MCG INHALER INHALATION PRN ×2 (07:43→20:37)
[2020-06-29] MEDS: HEPARIN SODIUM,PORCINE 5,000 UNIT/ML 1 ML VIAL SQ SCH ×2 (08:44→21:01)
[2020-06-29] MEDS: HYDROcodone/APAP 5-325MG 1 EACH TAB PO PRN ×2 (08:48→16:06)
[2020-06-29] MEDS: MELOXICAM 7.5 MG TAB PO SCH (08:51)
[2020-06-29] MEDS: OXYBUTYNIN CHLORIDE 5 MG TAB PO SCH ×2 (08:52→21:01)
[2020-06-29] MEDS: LORATADINE 10 MG TAB PO SCH (08:52)
[2020-06-29] MEDS: LOSARTAN 25 MG TAB PO SCH (08:52)
[2020-06-29] MEDS: ASPIRIN 81 MG PO SCH (08:52)
[2020-06-29] MEDS: BACLOFEN 10 MG TAB PO SCH ×3 (08:52→23:06)
[2020-06-29] MEDS: TRIAMTERENE-HCTZ 37.5-25MG 1 EACH CAP PO SCH (08:52)
[2020-06-29] MEDS: GABAPENTIN 300 MG CAP PO SCH ×3 (08:52→23:06)
[2020-06-29] MEDS: PANTOPRAZOLE 40 MG/10 ML VIAL IVP SCH ×2 (08:54→21:01)
[2020-06-29 09:19] LABS: Calcium 9.4 mg/dL (8.4-10.2); Potassium 4.4 mmol/L (3.5-5.1)
[2020-06-29 09:33] LABS: Basophils # (A) 0.1 k/uL (0-0.2); Basophils % (A) 1 %; Eosinophils # (A) 0.7 k/uL (0-0.7); Eosinophils % (A) 5 %; HCT 43.2 % (34.0-46.0); HGB 13.5 gm/dL (11.4-16.0); Hypochromasia Slight; Lymphocytes # (A) 5.5 k/uL (1.0-4.8); Lymphocytes % (A) 42 %; MCH 28.4 pg (25.0-35.0); MCHC 31.3 g/dL (31.0-37.0); MCV 90.7 fL (80.0-100.0); Mean Platelet Volume 7.6; Monocytes # (A) 0.8 k/uL (0-1.0); Monocytes % (A) 6 %; Neutrophils # (A) 5.8 k/uL (1.3-7.7); Neutrophils % (A) 45 %; Platelet Count 403 k/uL (150-450); RBC 4.76 m/uL (3.80-5.40)
[2020-06-29] MEDS: ONDANSETRON 4 MG/2 ML VIAL IVP PRN (10:45)
[2020-06-29 10:46] LABS: Anisocytosis (M) Present
--- NOTE | 2020-06-29 14:59 | P.PN ---
Subjective Progress Note Date: 06/29/20 Principal diagnosis: This is a 55-year-old female who was recently admitted with fevers with possible sepsis, present on admission and is being closely monitored. Unknown source of primary infection. Urine and blood cultures thus far remain negative. Patient is maintained on IV ceftriaxone and will continue at this time. Infectious disease is following. White blood count is 17.1 today. Current sodium is 140, BUNs is 18, creatinine is 0.71. Lactic acid has improved. Covid 19 testing currently pending. Patient is maintained on bronchodilators and will continue at this time. Patient stated upon ER presentation patient was having multiple episodes of diarrhea although has not had a bowel movement since. Specimen to test for C. diff was ordered although currently uncollected. Patient has remained afebrile over 24 hours. Review of systems: Constitutional: Reports mild fatigue, no reports of fevers or chills Cardiovascular: No reports of chest pain or palpitations Respiratory: Reports some mild shortness of breath and cough GI: No reports of nausea, vomiting, or diarrhea : No reports of dysuria or retention Neurovascular: No reports of weakness or numbness 06/28/2020 Patient is seen and examined and follow-up today and continues to be dyspneic with exertion. Patient is currently maintained on room air and will continue with breathing inhalational treatments at this time. Covid 19 testing was negative. Infectious disease is following. Patient is currently maintained on IV ceftriaxone and will continue at this time. White blood count slowly tr ending down and is currently 11.8. Urine and blood cultures remain negative. Patient denies any chest pain, worsening shortness of breath, or palpitations. Patient is afebrile. No reports of nausea or vomiting and patient is tolerating diet. Patient states she is passing gas with minimal bloating of the abdomen although has not had a bowel movement yet. A bone scan was ordered and is currently pending. Instructed the patient to increase activity as tolerated. 06/29/2020 Patient is seen in follow-up today recently underwent nuclear medicine bone scan which is currently pending at this time. Patient continues to have lower back pain and will order MRI. White Blood count slightly trending up at 13 today. Patient is currently maintained on IV antibiotics in the form of ceftriaxone and will continue at this time. Infectious disease following. Blood and urine cultures remain negative. Patient denies having any chest pain, worsening shortness of breath, or palpitations. Patient has been afebrile. Patient had some intermittent nausea after the bone scan which was relieved by Zofran. No reports of vomiting and patient is tolerating diet. Will continue to monitor closely and await for MRI report. Objective - Vital Signs Vital signs: Vital Signs Temp 98.1 F 06/29/20 07:00 Pulse 66 06/29/20 07:00 Resp 18 06/29/20 07:00 BP 151/90 06/29/20 07:00 Pulse Ox 98 06/29/20 07:00 Intake & Output 06/28/20 06/29/20 06/29/20 18:59 06:59 18:59 Intake Total 350 940 100 Balance 350 940 100 Intake: Intake, IV Titration 350 440 100 Amount Sodium Chloride 0.9% 1, 350 440 000 ml @ 50 mls/hr IV . Q20H [facility] Rx#:[id number] cefTRIAXone 1 gm In 100 Sodium Chloride 0.9% 50 ml @ 100 mls/hr IVPB Q24H [facility] Rx#:[id number] Oral 500 Other: # Voids 3 - Exam Gen: This is a 55-year-old female sitting up in the chair, awake, alert and oriented 3, well-developed, well-nourished, obese. Temp is 98.1F, pulse is 66, respirations are 18, blood pressure is 151/90, oxygen saturation is 98% on room air. HEENT: Head is atraumatic, normocephalic. Pupils equal, round. Sclerae is anicteric. NECK: Supple. No JVD. No lymphadenopathy. No thyromegaly. LUNGS: Breath sounds diminished bilaterally with a few scattered rhonchi noted. No intercostal retractions. HEART: S1, S2 are muffled ABDOMEN: Soft. Obese. Bowel sounds are present. No masses. No tenderness. EXTREMITIES: No pedal edema. No calf tenderness. NEUROLOGICAL: Patient is awake, alert and oriented x3. Cranial nerves 2 through 12 are grossly intact. - Labs CBC & Chem 7: 06/29/20 08:30 06/29/20 08:30 Labs: Abnormal Lab Results - Last 24 Hours (Table) 06/29/20 06/29/20 Range/Units 08:30 08:30 WBC 13.0 H (3.8-10.6) k/uL Lymphocytes # 5.5 H (1.0-4.8) k/uL BUN 21 H (7-17) mg/dL Microbiology - Last 24 Hours (Table) 06/25/20 15:26 Blood Culture - Preliminary Blood No Growth after 72 hours Assessment and Plan Assessment: Fever, possible sepsis, primary site unknown History of recent removal of the pain stimulator trial, rule out paraspinal abscess Increased WBC Hyponatremia, improved Elevated plasma lactic acid possibly secondary to sepsis, present on admission, improved History of asthma Hypertension Hyperlipidemia Myocardial infarction history of degenerative joint disease History of sleep apnea history of back pain History of tonsillectomy History of uterine ablation History of depression Obesity, with a body mass index of 41 Recommend patient and discussion: Recommend to continue current medications, management, and symptomatic treatment. Bone scan was done with report pending. Will obtain MRI and CRP. White blood count slightly elevated at 13. Patient is maintained on IV ceftriaxone and will continue at this time. Urine and blood cultures thus far have been negative. Infectious disease is following. Prognosis is guarded. Further recommendations to follow. Possible discharge in 24-48 hours.
--- NOTE | 2020-06-29 16:04 | NM ---
EXAMINATION TYPE: NM bone 3 phase DATE OF EXAM: 06/29/2020 COMPARISON: CT abdomen pelvis 06/25/2020 HISTORY: Unknown infection. Bone pain all over. History of osteoarthritis. Triple phase bone scintigraphy was performed following the injection of 18.2 mCi Tc 99m MDP. Flow, po ol, and delayed imaging acquired. FINDINGS: There is no significant abnormal accumulation of radiotracer to suggest metastatic disease to the bon e or other significant abnormality such as infection.. There is mild symmetric degenerative uptake of the sacroiliac joints, and mild activity at the right L4-L5 facet joint, which corresponds to facet arthropathy seen on 06/25/2020 CT comparison. IMPRESSION: No scintigraphic evidence of osseous infection.
[2020-06-29] MEDS: MONTELUKAST 10 MG TAB PO SCH (21:01)
[2020-06-29] MEDS: buPROPion SR 150 MG TABLET.ER PO SCH (21:01)
[2020-06-29] MEDS: ATORVASTATIN 80 MG TAB PO SCH (21:01)
--- NOTE | 2020-06-29 22:00 | PN ---
PROGRESS NOTE DATE OF SERVICE: 06/29/2020 REASON FOR FOLLOWUP: Possible bacterial gastroenteritis with fever. INTERVAL HISTORY: Patient is currently afebrile. The patient is feeling better. Breathing comfortably. The patient denies having any chest pain. No shortness of breath or cough. No nausea, vomiting. No abdominal pain. No diarrhea. The patient has had no bowel movement since Saturday. EXAM: Blood pressure 125/72 with a pulse of 70, temperature 97.9. She is 94% on room air. General description is a middle-aged female lying in bed in no distress. Respiratory system: Unlabored breathing, clear to auscultation. Heart S1, S2. Regular rate and rhythm. Abdomen soft, no tenderness. LABS: Hemoglobin is 13.5, white count 13.0, BUN of 21, creatinine 0.97. CRP is 14.5 and is down from 71.3. Blood culture has been negative. DIAGNOSTIC IMPRESSION AND PLAN: Patient admitted to the hospital with fever and did have predominantly GI symptoms with concern for possible bacterial gastroenteritis. Overall improvement on Rocephin. Cultures have been negative. She will finish therapy with oral Ceftin. Continue supportive care. MMODL / IJN: [id number] /
[2020-06-30] MEDS: HYDROcodone/APAP 5-325MG 1 EACH TAB PO PRN (01:08)
[2020-06-30] MEDS: PANTOPRAZOLE 40 MG/10 ML VIAL IVP SCH ×2 (07:29→21:42)
[2020-06-30] MEDS: MELOXICAM 7.5 MG TAB PO SCH (07:29)
[2020-06-30] MEDS: OXYBUTYNIN CHLORIDE 5 MG TAB PO SCH ×2 (07:29→21:41)
[2020-06-30] MEDS: HEPARIN SODIUM,PORCINE 5,000 UNIT/ML 1 ML VIAL SQ SCH ×2 (07:29→21:42)
[2020-06-30] MEDS: ASPIRIN 81 MG PO SCH (07:29)
[2020-06-30] MEDS: LOSARTAN 25 MG TAB PO SCH (07:30)
[2020-06-30] MEDS: TRIAMTERENE-HCTZ 37.5-25MG 1 EACH CAP PO SCH (07:30)
[2020-06-30] MEDS: ACETAMINOPHEN TAB 500 MG TAB PO PRN ×2 (07:31→21:41)
[2020-06-30] MEDS: GABAPENTIN 300 MG CAP PO SCH ×3 (07:31→21:40)
[2020-06-30] MEDS: LORATADINE 10 MG TAB PO SCH (07:31)
[2020-06-30] MEDS: BACLOFEN 10 MG TAB PO SCH ×3 (07:31→21:40)
[2020-06-30] MEDS: SYMBICORT 160-4.5 MCG INHALER INHALATION PRN ×2 (07:37→20:58)
[2020-06-30 08:18] LABS: Calcium 9.7 mg/dL (8.4-10.2); Potassium 4.6 mmol/L (3.5-5.1)
[2020-06-30 08:23] LABS: Basophils # (A) 0.1 k/uL (0-0.2); Basophils % (A) 1 %; Eosinophils # (A) 0.7 k/uL (0-0.7); Eosinophils % (A) 5 %; HCT 45.8 % (34.0-46.0); HGB 14.5 gm/dL (11.4-16.0); Lymphocytes # (A) 5.7 k/uL (1.0-4.8); Lymphocytes % (A) 42 %; MCH 28.5 pg (25.0-35.0); MCHC 31.6 g/dL (31.0-37.0); MCV 90.2 fL (80.0-100.0); Mean Platelet Volume 7.2; Monocytes # (A) 0.6 k/uL (0-1.0); Monocytes % (A) 5 %; Neutrophils # (A) 6.2 k/uL (1.3-7.7); Neutrophils % (A) 46 %; Platelet Count 426 k/uL (150-450); RBC 5.08 m/uL (3.80-5.40); RDW 14.2 % (11.5-15.5); WBC 13.6 k/uL (3.8-10.6)
[2020-06-30] MEDS: SENNOSIDES-DOCUSATE SODIUM 1 EACH TAB PO SCH ×2 (10:07→21:41)
--- NOTE | 2020-06-30 12:02 | MR ---
EXAMINATION TYPE: MR lspine/sacrum wo/w con DATE OF EXAM: 06/30/2020 COMPARISON: CT abdomen and pelvis from 5 days ago. HISTORY: Low back pain, fever and chills, rule out paraspinal abscess, recent temp spinal stimulator removed TECHNIQUE: Multiplanar, multisequence images of the lumbar spine and sacrum are performed without and with IV c ontrast, utilizing 10 mL intravenous Gadavist FINDINGS: Sagittal images of the lumbar spine show vertebral body heights and alignment to remain sat isfactory. Multilevel disc desiccation in the mid to lower lumbar spine. Mild to moderate disc space during a L5-S1 level. The conus medullaris is normal in position and signal ending inferior L1 level . The bone marrow signal intensity is within normal limits. No suspicious postcontrast enhancement. Mild to moderate dependent subcutaneous edema in the posterior soft tissues centered at L2 level with out new well formed fluid collection correlates with recent CT. Axial images show the T12-L1, L1-L2, and L2-L3 levels to appear within normal limits. Axial images at L3-L4 level shows mild facet degenerative changes bilaterally. Axial images at L4-L5 level show moderate facet degenerative changes bilaterally there is mild broad disc bulge with right foraminal disc protrusion component causing asymmetric mild to moderate right-s ided inferior neural foraminal narrowing. Axial images at L5-S1 level show mild left greater than right facet degenerative changes. There is le ft foraminal disc protrusion. Spinal canal is preserved. There is asymmetric mild left-sided inferior neural foraminal narrowing. There is occasional enhancing lumbosacral nerve root nonspecific finding without suspicious clumping. Sacrum and coccyx show satisfactory alignment. Bone marrow signal intensity is preserved. Sacral alar maintained. No suspicious enhancement is seen. Sacroiliac joints are felt within normal limits. Axia l images show some susceptibility artifact pelvic cul-de-sac of uncertain etiology. No suspicious bow el dilatation. Uterus surgically absent. There is 2.6 x 2.1 cm upper left pelvic mass, correlating to CT axial image 64, this was present on 2016 CT perhaps reflects remnant slightly prominent left ovar y. Stability from 2016 suggests benign etiology. IMPRESSION: No well-formed fluid collection or abscess identified at region of lumbar spine and sacru m. No suspicious osseous edema or enhancement.
--- NOTE | 2020-06-30 14:01 | P.PN ---
Subjective Progress Note Date: 06/30/20 Principal diagnosis: This is a 55-year-old female who was recently admitted with fevers with possible sepsis, present on admission and is being closely monitored. Unknown source of primary infection. Urine and blood cultures thus far remain negative. Patient is maintained on IV ceftriaxone and will continue at this time. Infectious disease is following. White blood count is 17.1 today. Current sodium is 140, BUNs is 18, creatinine is 0.71. Lactic acid has improved. Covid 19 testing currently pending. Patient is maintained on bronchodilators and will continue at this time. Patient stated upon ER presentation patient was having multiple episodes of diarrhea although has not had a bowel movement since. Specimen to test for C. diff was ordered although currently uncollected. Patient has remained afebrile over 24 hours. Review of systems: Constitutional: Reports mild fatigue, no reports of fevers or chills Cardiovascular: No reports of chest pain or palpitations Respiratory: Reports some mild shortness of breath and cough GI: No reports of nausea, vomiting, or diarrhea : No reports of dysuria or retention Neurovascular: No reports of weakness or numbness 06/28/2020 Patient is seen and examined and follow-up today and continues to be dyspneic with exertion. Patient is currently maintained on room air and will continue with breathing inhalational treatments at this time. Covid 19 testing was negative. Infectious disease is following. Patient is currently maintained on IV ceftriaxone and will continue at this time. White blood count slowly tr ending down and is currently 11.8. Urine and blood cultures remain negative. Patient denies any chest pain, worsening shortness of breath, or palpitations. Patient is afebrile. No reports of nausea or vomiting and patient is tolerating diet. Patient states she is passing gas with minimal bloating of the abdomen although has not had a bowel movement yet. A bone scan was ordered and is currently pending. Instructed the patient to increase activity as tolerated. 06/29/2020 Patient is seen in follow-up today recently underwent nuclear medicine bone scan which is currently pending at this time. Patient continues to have lower back pain and will order MRI. White Blood count slightly trending up at 13 today. Patient is currently maintained on IV antibiotics in the form of ceftriaxone and will continue at this time. Infectious disease following. Blood and urine cultures remain negative. Patient denies having any chest pain, worsening shortness of breath, or palpitations. Patient has been afebrile. Patient had some intermittent nausea after the bone scan which was relieved by Zofran. No reports of vomiting and patient is tolerating diet. Will continue to monitor closely and await for MRI report. 06/30/2020 Patient is seen and evaluated in follow-up and underwent an MRI of the LS-spine today showing No well-formed fluid collection or abscess identified at the region of the lumbar spine and sacrum along with no suspicious osseous edema or enhancement noted. Patient also underwent a nuclear bone scan yesterday showing no scintigraphic evidence of osseous infection. Patient currently remains on IV ceftriaxone and will continue at this time. Patient will likely transition to oral antibiotics upon discharge to complete the course. Infectious Disease is following.Patient remains afebrile although white blood count slightly trending up at 13.6 today. CRP is 14.5 which has trended down significantly. Review of systems: Constitutional: Reports some fatigue, no reports of fevers or chills Cardiovascular: No reports of chest pains or palpitations Respiratory: No reports of shortness of breath or cough GI: No reports of nausea, vomiting, or diarrhea. Reports feelings of mild constipation : No reports of dysuria or retention Neurovascular: No reports of weakness or numbness Active Medications Acetaminophen (Tylenol Tab) 1,000 mg PO Q6H PRN PRN Reason: Fever Last Admin: 06/30/20 07:31 Dose: 1,000 mg Documented by: Hydrocodone Bitart/Acetaminophen ([place] 5-325) 1 each PO Q6HR PRN PRN Reason: Pain Last Admin: 06/30/20 01:08 Dose: 1 each Documented by: Albuterol Sulfate (Ventolin Nebulized) 2 mg INHALATION RT-Q4H PRN PRN Reason: Shortness Of Breath Albuterol Sulfate (Ventolin Nebulized) 2.5 mg INHALATION RT-QID PRN PRN Reason: Shortness Of Breath Alprazolam (Xanax) 0.25 mg PO TID PRN PRN Reason: Anxiety Last Admin: 06/30/20 10:07 Dose: 0.25 mg Documented by: Aspirin (Aspirin) 81 mg PO DAILY [facility] Last Admin: 06/30/20 07:29 Dose: 81 mg Documented by: Atorvastatin Calcium (Lipitor) 80 mg PO HS [facility] Last Admin: 06/29/20 21:01 Dose: 80 mg Documented by: Baclofen (Lioresal) 5 mg PO TID [facility] Last Admin: 06/30/20 07:31 Dose: 5 mg Documented by: Budesonide/Formoterol Fumarate (Symbicort 160-4.5 Mcg Inhaler) 2 puff INHALATION RT-BID PRN PRN Reason: Shortness Of Breath Last Admin: 06/30/20 07:37 Dose: 2 puff Documented by: Bupropion HCl (Wellbutrin Sr) 150 mg PO [facility] Last Admin: 06/29/20 21:01 Dose: 150 mg Documented by: Gabapentin (Neurontin) 300 mg PO TID [facility] Last Admin: 06/30/20 07:31 Dose: 300 mg Documented by: Heparin Sodium (Porcine) (Heparin) 5,000 unit SQ Q12HR [facility] Last Admin: 06/30/20 07:29 Dose: 5,000 unit Documented by: Hydromorphone HCl (Dilaudid) 0.5 mg IVP Q6HR PRN PRN Reason: Severe Pain Ceftriaxone Sodium 1 gm/ (Sodium Chloride) 50 mls @ 100 mls/hr IVPB Q24H [facility] Last Admin: 06/29/20 16:01 Dose: 100 mls/hr Documented by: Loratadine (Claritin) 10 mg PO DAILY [facility] Last Admin: 06/30/20 07:31 Dose: 10 mg Documented by: Losartan Potassium (Cozaar) 25 mg PO DAILY [facility] Last Admin: 06/30/20 07:30 Dose: 25 mg Documented by: Meloxicam (Mobic) 15 mg PO DAILY [facility] Last Admin: 06/30/20 07:29 Dose: 15 mg Documented by: Montelukast Sodium (Singulair) 10 mg PO [facility] Last Admin: 06/29/20 21:01 Dose: 10 mg Documented by: Nitroglycerin (Nitrostat) 0.4 mg SUBLINGUAL Q5M PRN PRN Reason: Chest Pain Ondansetron HCl (Zofran) 4 mg IVP Q6HR PRN PRN Reason: Nausea And Vomiting Last Admin: 06/29/20 10:45 Dose: 4 mg Documented by: Oxybutynin Chloride (Ditropan) 5 mg PO BID [facility] Last Admin: 06/30/20 07:29 Dose: 5 mg Documented by: Pantoprazole Sodium (Protonix) 40 mg IVP BID [facility] Last Admin: 06/30/20 07:29 Dose: 40 mg Documented by: Senna/Docusate Sodium (Senokot-S) 1 each PO BID [facility] Last Admin: 06/30/20 10:07 Dose: 1 each Documented by: Temazepam (Restoril) 15 mg PO HS PRN PRN Reason: Insomnia Triamterene/HCTZ (Dyazide) 1 each PO DAILY [facility] Last Admin: 06/30/20 07:30 Dose: 1 each Documented by: Objective - Vital Signs Vital signs: Vital Signs Temp 98.2 F 06/30/20 07:06 Pulse 87 06/30/20 08:00 Resp 16 06/30/20 08:00 BP 130/85 06/30/20 07:06 Pulse Ox 95 06/30/20 00:43 Intake & Output 06/29/20 06/30/20 06/30/20 18:59 06:59 18:59 Intake Total 100 500 Balance 100 500 Intake: Intake, IV Titration 100 Amount cefTRIAXone 1 gm In 100 Sodium Chloride 0.9% 50 ml @ 100 mls/hr IVPB Q24H [facility] Rx#:[id number] Oral 500 Other: # Voids 1 - Exam Gen: This is a 55-year-old female sitting up in the chair, awake, alert and oriented 3, well-developed, well-nourished, obese. Temp is 98.2F, pulse is 87, respirations are 16, blood pressure is 130/85, oxygen saturation is 95% on room air. HEENT: Head is atraumatic, normocephalic. Pupils equal, round. Sclerae is anicteric. NECK: Supple. No JVD. No lymphadenopathy. No thyromegaly. LUNGS: Breath sounds diminished bilaterally with a few scattered rhonchi noted. No intercostal retractions. HEART: S1, S2 are muffled ABDOMEN: Soft. Obese. Bowel sounds are present. No masses. No tenderness. EXTREMITIES: No pedal edema. No calf tenderness. NEUROLOGICAL: Patient is awake, alert and oriented x3. Cranial nerves 2 through 12 are grossly intact. - Labs CBC & Chem 7: 06/30/20 07:48 06/30/20 07:48 Labs: Abnormal Lab Results - Last 24 Hours (Table) 06/29/20 06/30/20 06/30/20 Range/Units 08:30 07:48 07:48 WBC 13.6 H (3.8-10.6) k/uL Lymphocytes # 5.7 H (1.0-4.8) k/uL Carbon Dioxide 31 H (22-30) mmol/L BUN 21 H (7-17) mg/dL C-Reactive Protein 14.5 H (<10.0) mg/L Microbiology - Last 24 Hours (Table) 06/25/20 15:26 Blood Culture - Preliminary Blood No Growth after 96 hours Assessment and Plan Assessment: Fever, possible sepsis, primary site unknown, Present on admission History of recent removal of the pain stimulator trial, ruled out paraspinal abscess Increased WBC Hyponatremia, improved Elevated plasma lactic acid possibly secondary to sepsis, present on admission, improved History of asthma Hypertension Hyperlipidemia Myocardial infarction history of degenerative joint disease History of sleep apnea history of back pain History of tonsillectomy History of uterine ablation History of depression Obesity, with a body mass index of 41 Recommend patient and discussion: Recommend to continue current medications, management, and symptomatic treatment. Bone scan was done And was negative. MRI of the LS-spine was negative. White blood count slightly elevated at 13.6. Patient is maintained on IV ceftriaxone and will continue at this time. We'll transition to oral antibiotics upon discharge. Infectious disease is following. Urine and blood cultures Continue to be negative. Prognosis is guarded. Further recommendations to follow. Possible discharge in 24 hours.
[2020-06-30] MEDS: ATORVASTATIN 80 MG TAB PO SCH (21:40)
[2020-06-30] MEDS: MONTELUKAST 10 MG TAB PO SCH (21:41)
[2020-06-30] MEDS: buPROPion SR 150 MG TABLET.ER PO SCH (21:48)
--- NOTE | 2020-06-30 22:41 | PN ---
PROGRESS NOTE DATE OF SERVICE: 06/30/2020 REASON FOR FOLLOWUP: Fever and leukocytosis. INTERVAL HISTORY: Patient is currently afebrile. The patient has been breathing comfortably. The patient denies having any chest pain or shortness of breath or cough. No nausea, vomiting, abdominal pain, no diarrhea. The patient is constipated. PHYSICAL EXAMINATION: Blood pressure 116/82 with a pulse of 80, temperature 98.5. She is 96% on room air. General description: Middle-aged female lying in bed in no distress. Respiratory system: Unlabored breathing, clear to auscultation anteriorly. Heart S1, S2. Regular rate and rhythm. Abdomen soft, no tenderness. LABS: Hemoglobin is 14.5, white count up to 13.6, BUN of 21, creatinine 0.89. CRP is 14.5 that has came up from 7.3. Urine has been negative. MRI of the lumbosacral spine was negative. Bone scan negative. IMPRESSION/PLAN: Patient admitted to the hospital with fever, leukocytosis, that has predominantly GI symptom. The patient did have extensive workup and no other obvious focus of infection. She did have slight worsening of the white count, now with evidence of constipation. Flagyl will be added. Rule out abdominal source. CBC tomorrow. Family at the bedside questions were answered. MMODL / IJN: [id number] /
[2020-06-30] MEDS: metroNIDAZOLE 500 MG TAB PO SCH (23:50)
[2020-07-01 06:58] LABS: Basophils # (A) 0.2 k/uL (0-0.2); Basophils % (A) 1 %; Eosinophils # (A) 0.8 k/uL (0-0.7); Eosinophils % (A) 5 %; HCT 45.2 % (34.0-46.0); HGB 14.3 gm/dL (11.4-16.0); Lymphocytes % (A) 36 %; MCH 28.3 pg (25.0-35.0); MCHC 31.5 g/dL (31.0-37.0); MCV 89.8 fL (80.0-100.0); Mean Platelet Volume 7.3; Monocytes # (A) 0.6 k/uL (0-1.0); Monocytes % (A) 4 %; Neutrophils % (A) 52 %; Platelet Count 405 k/uL (150-450); RBC 5.04 m/uL (3.80-5.40); RDW 13.9 % (11.5-15.5); WBC 15.3 k/uL (3.8-10.6)
[2020-07-01 06:59] LABS: Lymphocytes # (A) 5.5 k/uL (1.0-4.8)
[2020-07-01 07:18] LABS: Calcium 9.8 mg/dL (8.4-10.2); Potassium 4.7 mmol/L (3.5-5.1)
[2020-07-01 07:38] LABS: C Reactive Protein 13.5 mg/L (<10.0)
[2020-07-01 07:39] VITALS: BP 116/74; PULSE 85; RESP 18; TEMP 97.6
[2020-07-01] MEDS: SYMBICORT 160-4.5 MCG INHALER INHALATION PRN (08:04)
[2020-07-01] MEDS: HEPARIN SODIUM,PORCINE 5,000 UNIT/ML 1 ML VIAL SQ SCH (08:14)
[2020-07-01] MEDS: LOSARTAN 25 MG TAB PO SCH (08:15)
[2020-07-01] MEDS: metroNIDAZOLE 500 MG TAB PO SCH ×2 (08:15→13:13)
[2020-07-01] MEDS: BACLOFEN 10 MG TAB PO SCH (08:15)
[2020-07-01] MEDS: OXYBUTYNIN CHLORIDE 5 MG TAB PO SCH (08:15)
[2020-07-01] MEDS: ASPIRIN 81 MG PO SCH (08:15)
[2020-07-01] MEDS: GABAPENTIN 300 MG CAP PO SCH (08:15)
[2020-07-01] MEDS: SENNOSIDES-DOCUSATE SODIUM 1 EACH TAB PO SCH (08:15)
[2020-07-01] MEDS: PANTOPRAZOLE 40 MG/10 ML VIAL IVP SCH (08:15)
[2020-07-01] MEDS: LORATADINE 10 MG TAB PO SCH (08:15)
[2020-07-01] MEDS: MELOXICAM 7.5 MG TAB PO SCH (08:15)
[2020-07-01] MEDS: TRIAMTERENE-HCTZ 37.5-25MG 1 EACH CAP PO SCH (08:15)
[2020-07-01 09:50] VITALS: BMI 41.0
[2020-07-01] MEDS: HYDROcodone/APAP 5-325MG 1 EACH TAB PO PRN (10:49)
--- NOTE | 2020-07-01 12:54 | PN ---
PROGRESS NOTE DATE OF SERVICE: 07/01/2020 REASON FOR FOLLOWUP: Leukocytosis, possible IV site related. INTERVAL HISTORY: Patient is currently afebrile. The patient has been breathing comfortably. She has been complaining of pain to the left hand dorsum area. The patient did have an IV that was discontinued yesterday: Patient current IV also getting bad. Patient denies having any headache. No chest pain, shortness of breath or cough. No nausea, vomiting. No abdominal pain, no diarrhea. The patient is constipated, not have any bowel movement since Saturday and no urinary symptoms. PHYSICAL EXAMINATION: Blood pressure 116/74 with a pulse of 85, temperature 97.6, 92% on room air. General description is a middle-aged female, up in the bed in no distress. HEENT: Examination no pallor or scleral icterus. LUNGS: Unlabored breathing. Clear to auscultation anteriorly. No wheeze or crackle. HEART: S1, S2. Regular rate and rhythm. ABDOMEN: Soft, no tenderness. Left hand dorsum with minimal warmth. No significant redness or drainage. LABS: Hemoglobin is 14.8, white count of 15.3, BUN of 23, creatinine 0.93. CRP is down to 13.5. Blood culture has been negative. DIAGNOSTIC IMPRESSION AND PLAN: Patient with leukocytosis which is multifactorial. Initial concern was possible bacterial gastroenteritis, predominantly GI symptom. The patient did have extensive workup including CT abdomen and pelvis, the bone scan and MRI of the brain that has been negative. Blood culture has been negative. White count mildly elevated, could be related to the IV which was discontinued. Currently no evidence of any cellulitis. She has been advised Ceftin and Flagyl for a week with a repeat CBC on Saturday with white count showing any worsening or the patient any worsening redness. Advised to come back to the hospital. Questions and concerns were answered in layman's term. MMODL / IJN: [id number] /
--- NOTE | 2020-07-02 10:43 | P.DS ---
Providers Date of admission: 06/25/20 18:14 Expected date of discharge: 07/01/20 Attending physician: Arnulfo Barrios Consults: 06/25/20 18:16 Consult Physician Routine Consulting Provider: Kami Ott Consult Reason/Comments: sirs Do you want consulting provider notified?: Yes Primary care physician: Raman Guzman [facility] Course: final diagnosis Fever, possible sepsis, primary site unknown, Present on admission History of recent removal of the pain stimulator trial, ruled out paraspinal abscess Increased WBC Hyponatremia, improved Elevated plasma lactic acid possibly secondary to sepsis, present on admission, improved History of asthma Hypertension Hyperlipidemia Myocardial infarction history of degenerative joint disease History of sleep apnea history of back pain History of tonsillectomy History of uterine ablation History of depression Obesity, with a body mass index of 41 Discharge disposition Patient is being discharged in a stable condition with guarded prognosis to home. Patient will follow-up with Dr. Camargo upon discharge. Patient also instructed to follow up with her orthopedic doctor as well as Dr. Ott in the outpatient setting. Patient will continue on oral Ceftin 500 mg twice daily and Flagyl 500 mg 4 times daily for the next week. Total time taken is greater than 35 minutes. History of present illness This is a 55-year-old female who was recently admitted with fevers with possible sepsis, present on admission and is being closely monitored. Unknown source of primary infection. Urine and blood cultures remain negative. Patient was maintained on IV ceftriaxone and flagyl and will transition to oral upon discharge for one week. Infectious disease was following. Patient underwent bone scan which was negative and also CT scan as well as MRI showing no acute abnormalities. Patient recently had a LS stimulator that was recently removed showing no signs of infection at the site and healing. Patient also underwent 2D echo showing overall LV function normal with an EF of 55-60%. Patient white count today is 15.3 with no fevers noted. Patient provided prescriptions for repeat CBC, BMP, ESR, CRP in the outpatient setting in one week. Patient also instructed to monitor closely for any signs of infection such as fever and notify pcp and Dr. Ott immediately. Patient also instructed to follow up with her orthopedic doctor in the outpatient setting. Currently no reports of chest pain, palpitations, or shortness of breath. Patient is afebrile. No reports of nausea or vomiting and patient is tolerating diet. On exam vital signs are stable. Temp is 97.6F, pulse is 85, respirations are 18, blood pressure 116/74, oxygen saturation is 92% on room air. Cardio S1, S2 are present. Respiratory shows diminished breath sounds with no wheezing or rhonchi noted. Abdomen is soft and non-tender. Nervous system shows no focal deficits. Please refer to medication reconciliation sheet for a list of medications. Patient Condition at Discharge: Fair Plan - Discharge Summary Discharge Rx Participant: Yes New Discharge Prescriptions: New Cefuroxime Axetil [Ceftin] 500 mg PO BID 7 Days #14 tab metroNIDAZOLE [Flagyl] 500 mg PO QID 7 Days #28 tab Sennosides-Docusate Sodium [Senokot-S] 1 each PO BID #10 tab Continue Gabapentin [Neurontin] 300 mg PO TID buPROPion SR [Wellbutrin SR] 150 mg PO HS Atorvastatin [Lipitor] 80 mg PO HS #30 tab Nitroglycerin Sl Tabs [Nitrostat] 0.4 mg SUBLINGUAL Q5M PRN #25 tab PRN Reason: Chest Pain Acetaminophen Tab [Tylenol] 1,000 mg PO Q6H PRN PRN Reason: Fever Triamterene-Hctz 37.5-25Mg [Dyazide 37.5-25 Capsule] 1 cap PO DAILY Cetirizine HCl [Zyrtec] 10 mg PO DAILY Albuterol Nebulized [Ventolin Nebulized] 2.5 mg INHALATION RT-QID PRN PRN Reason: Shortness Of Breath Oxybutynin Chloride [Ditropan] 5 mg PO BID Omeprazole [PriLOSEC] 20 mg PO BID Montelukast [Singulair] 10 mg PO HS Meloxicam [Mobic] 15 mg PO DAILY Losartan [Cozaar] 25 mg PO DAILY Baclofen [Lioresal] 5 mg PO TID Aspirin EC [Ecotrin Low Dose] 81 mg PO DAILY Albuterol Inhaler [Ventolin Hfa Inhaler] 2 puff INHALATION RT-Q4H PRN PRN Reason: Shortness Of Breath Budesonide/Formoterol Fumarate [Symbicort 160-4.5 Mcg Inhaler] 2 puff INHALATION RT-BID PRN PRN Reason: Shortness Of Breath Discharge Medication List Gabapentin [Neurontin] 300 mg PO TID 03/26/18 [History] buPROPion SR [Wellbutrin SR] 150 mg PO HS 03/26/18 [History] Atorvastatin [Lipitor] 80 mg PO HS #30 tab 03/28/18 [Rx] Nitroglycerin Sl Tabs [Nitrostat] 0.4 mg SUBLINGUAL Q5M PRN #25 tab 03/28/18 [Rx] Acetaminophen Tab [Tylenol] 1,000 mg PO Q6H PRN 06/25/20 [History] Albuterol Inhaler [Ventolin Hfa Inhaler] 2 puff INHALATION RT-Q4H PRN 06/25/20 [History] Albuterol Nebulized [Ventolin Nebulized] 2.5 mg INHALATION RT-QID PRN 06/25/20 [History] Aspirin EC [Ecotrin Low Dose] 81 mg PO DAILY 06/25/20 [History] Baclofen [Lioresal] 5 mg PO TID 06/25/20 [History] Budesonide/Formoterol Fumarate [Symbicort 160-4.5 Mcg Inhaler] 2 puff INHALATION RT-BID PRN 06/25/20 [History] Cetirizine HCl [Zyrtec] 10 mg PO DAILY 06/25/20 [History] Losartan [Cozaar] 25 mg PO DAILY 06/25/20 [History] Meloxicam [Mobic] 15 mg PO DAILY 06/25/20 [History] Montelukast [Singulair] 10 mg PO HS 06/25/20 [History] Omeprazole [PriLOSEC] 20 mg PO BID 06/25/20 [History] Oxybutynin Chloride [Ditropan] 5 mg PO BID 06/25/20 [History] Triamterene-Hctz 37.5-25Mg [Dyazide 37.5-25 Capsule] 1 cap PO DAILY 06/25/20 [History] Cefuroxime Axetil [Ceftin] 500 mg PO BID 7 Days #14 tab 07/01/20 [Rx] Sennosides-Docusate Sodium [Senokot-S] 1 each PO BID #10 tab 07/01/20 [Rx] metroNIDAZOLE [Flagyl] 500 mg PO QID 7 Days #28 tab 07/01/20 [Rx] Follow up Appointment(s)/Referral(s): Teagan Camargo MD [Primary Care Provider] - 07/05/20 2:20 pm (If you can not make this appointment Please call and cancel) Kami Ott MD [STAFF PHYSICIAN] - 1 Week Ambulatory/Diagnostic Orders: Basic Metabolic Panel [LAB.AMB] Time Frame: 1 Week, Location: None Selected C Reactive Protein [LAB.AMB] Time Frame: 1 Week, Location: None Selected Complete Blood Count w/diff [LAB.AMB] Time Frame: 2 Days, Location: None Selected Complete Blood Count w/diff [LAB.AMB] Time Frame: 1 Week, Location: None Selected Erythrocyte Sedimentation Rate [LAB.AMB] Time Frame: 1 Week, Location: None Selected Patient Instructions/Handouts: Sepsis (GEN) Activity/Diet/Wound Care/Special Instructions: Activity Limited until follow-up Continue with both antibiotics until finished Follow-up with primary care provider upon discharge Follow-up with your orthopedic clinic in the outpatient setting Follow-up with infectious disease Dr. Ott in The outpatient setting Repeat labs in 2-3 days Encourage fluids and rest Continue to monitor closely for any fevers Discharge Disposition: HOME SELF-CARE
== END 2020-07-01 13:37 | disposition home or self-care (01) | DRG 872 ==
LOC: EC 14:52 → 4SSUR 18:14
PROVIDERS: ADMIT Hospitalist; ATTEND Hospitalist
DX: A41.9 Sepsis, unspecified organism (principal); E87.2 Acidosis; E87.1 Hypo-osmolality and hyponatremia; Z68.41 Body mass index [BMI] 40.0-44.9, adult; A04.9 Bacterial intestinal infection, unspecified; J45.909 Unspecified asthma, uncomplicated; Z11.59 Encounter for screening for other viral diseases; M06.9 Rheumatoid arthritis, unspecified; M19.90 Unspecified osteoarthritis, unspecified site; G47.30 Sleep apnea, unspecified; F32.9 Major depressive disorder, single episode, unspecified; Z96.651 Presence of right artificial knee joint; E78.5 Hyperlipidemia, unspecified; E66.9 Obesity, unspecified; I34.0 Nonrheumatic mitral (valve) insufficiency; I11.9 Hypertensive heart disease without heart failure; K59.00 Constipation, unspecified; Z87.891 Personal history of nicotine dependence; Z79.82 Long term (current) use of aspirin; Z79.51 Long term (current) use of inhaled steroids; Z90.89 Acquired absence of other organs; Z98.890 Other specified postprocedural states; Z98.51 Tubal ligation status; Z80.9 Family history of malignant neoplasm, unspecified; Z82.61 Family history of arthritis; Z99.89 Dependence on other enabling machines and devices; Z90.710 Acquired absence of both cervix and uterus; Z82.49 Family history of ischemic heart disease and other diseases of the circulatory system; Z83.3 Family history of diabetes mellitus; Z79.899 Other long term (current) drug therapy; Z79.1 Long term (current) use of non-steroidal anti-inflammatories (NSAID); Z91.041 Radiographic dye allergy status; Z91.040 Latex allergy status; Z88.0 Allergy status to penicillin; Z91.018 Allergy to other foods; I25.2 Old myocardial infarction; Z90.49 Acquired absence of other specified parts of digestive tract
CPT/HCPCS: 36415; 71045; 72158; 72197; 74177; 78315; 80048; 80053; 81001; 81003; 83605; 83735; 84484; 85025; 85610; 85652; 85730; 86140; 87040; 87086; 93005; 93306; 94640; 96361; 96365; 96367; 96375; 99285

== ENCOUNTER 2020-07-07 23:15 | Observation (INO) | payer MEDICARE, OTHER ==
[2020-07-07] MEDS ORDERED: SODIUM CHLORIDE 0.9% 1,000 ML IV STA (23:57)
[2020-07-07] MEDS ORDERED: ONDANSETRON 4 MG/2 ML VIAL IVP STA (23:57)
[2020-07-08 00:33] LABS: Basophils # (A) 0.2 k/uL (0-0.2); Basophils % (A) 1 %; Eosinophils # (A) 0.6 k/uL (0-0.7); Eosinophils % (A) 4 %; HCT 44.6 % (34.0-46.0); HGB 14.6 gm/dL (11.4-16.0); Lymphocytes # (A) 4.6 k/uL (1.0-4.8); Lymphocytes % (A) 26 %; MCH 28.8 pg (25.0-35.0); MCHC 32.7 g/dL (31.0-37.0); MCV 88.3 fL (80.0-100.0); Mean Platelet Volume 7.8; Monocytes # (A) 0.8 k/uL (0-1.0); Monocytes % (A) 4 %; Neutrophils # (A) 11.5 k/uL (1.3-7.7); Neutrophils % (A) 64 %; Platelet Count 369 k/uL (150-450); RBC 5.05 m/uL (3.80-5.40); RDW 14.1 % (11.5-15.5); WBC 17.9 k/uL (3.8-10.6)
[2020-07-08 00:41] LABS: Partial Thromboplastin Time 23.7 sec (22.0-30.0); Prothrombin Time 10.1 sec (9.0-12.0)
--- NOTE | 2020-07-08 00:43 | XR ---
EXAMINATION TYPE: XR chest 2V DATE OF EXAM: 07/08/2020 COMPARISON: 06/25/2020 HISTORY: Hypertension TECHNIQUE: 2 views FINDINGS: Heart and mediastinum are normal. Lungs are clear. Diaphragm is normal. Bony thorax appears normal. There are chest leads. IMPRESSION: Normal chest. Normal heart. . No change.
[2020-07-08 00:44] LABS: ALT 33 U/L (4-34); AST 31 U/L (14-36); African American GFR (CKD) >90 (>60 ml/min/1.73 sqM); Albumin 4.2 g/dL (3.5-5.0); Alkaline Phosphatase 56 U/L (38-126); Anion Gap 9 mmol/L; Blood Urea Nitrogen 16 mg/dL (7-17); Calcium 9.5 mg/dL (8.4-10.2); Carbon Dioxide 28 mmol/L (22-30); Chloride 101 mmol/L (98-107); Glucose 101 mg/dL (74-99); Magnesium 2.1 mg/dL (1.6-2.3); Non-African American GFR(CKD) 78 (>60 ml/min/1.73 sqM); Potassium 3.7 mmol/L (3.5-5.1); Sodium 138 mmol/L (137-145); Total Bilirubin 0.4 mg/dL (0.2-1.3); Total Protein 6.5 g/dL (6.3-8.2)
[2020-07-08] MEDS ORDERED: MECLIZINE 12.5 MG TAB PO STA (01:25)
[2020-07-08] MEDS ORDERED: diphenhydrAMINE 50 MG/ML 1 ML VIAL IVP STA (01:25)
[2020-07-08] MEDS ORDERED: METOCLOPRAMIDE 5 MG/ML 2 ML VIAL IVP STA (01:25)
--- NOTE | 2020-07-08 01:25 | ED ---
Recheck HPI - General Chief Complaint: Recheck/Abnormal Lab/Rx Stated Complaint: b/p Time Seen by Provider: 07/07/20 23:36 Source: patient, family Mode of arrival: ambulatory Limitations: no limitations - History of Present Illness Initial Comments: 55-year-old female patient presents to the emergency department today for evaluation of dizziness, nausea, and elevated blood pressure. Patient states she is admitted to the hospital at the beginning of June for elevated blood pressure and sepsis. Patient states they were unable to find a cause for the sepsis, but was discharged home on antibiotics. 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 Patient states she did start metoprolol today. States that she had several high blood pressures. Has been extremely dizzy with any movement. She is also experiencing chest discomfort and belching. Patient states she has had SD in the past and her only symptoms were nausea, dizziness, and upper back pain. Patient denies any fever or chills. States she has had decreased appetite. Patient denies any recent rash, cough, shortness of breath, diarrhea, constipation, back pain, numbness, tingling, hematuria, dysuria, urinary urgency, urinary frequency, headache, visual hardeep nges, or any other complaints. - Related Data Home Medications Medication Instructions Recorded Confirmed Gabapentin [Neurontin] 300 mg PO TID 03/26/18 06/25/20 buPROPion SR [Wellbutrin SR] 150 mg PO HS 03/26/18 06/25/20 Acetaminophen Tab [Tylenol] 1,000 mg PO Q6H PRN 06/25/20 06/25/20 Albuterol Inhaler [Ventolin Hfa 2 puff INHALATION RT-Q4H PRN 06/25/20 06/25/20 Inhaler] Albuterol Nebulized [Ventolin 2.5 mg INHALATION RT-QID PRN 06/25/20 06/25/20 Nebulized] Aspirin EC [Ecotrin Low Dose] 81 mg PO DAILY 06/25/20 06/25/20 Baclofen [Lioresal] 5 mg PO TID 06/25/20 06/25/20 Budesonide/Formoterol Fumarate 2 puff INHALATION RT-BID PRN 06/25/20 06/25/20 [Symbicort 160-4.5 Mcg Inhaler] Cetirizine HCl [Zyrtec] 10 mg PO DAILY 06/25/20 06/25/20 Losartan [Cozaar] 25 mg PO DAILY 06/25/20 06/25/20 Meloxicam [Mobic] 15 mg PO DAILY 06/25/20 06/25/20 Montelukast [Singulair] 10 mg PO HS 06/25/20 06/25/20 Omeprazole [PriLOSEC] 20 mg PO BID 06/25/20 06/25/20 Oxybutynin Chloride [Ditropan] 5 mg PO BID 06/25/20 06/25/20 Triamterene-Hctz 37.5-25Mg 1 cap PO DAILY 06/25/20 06/25/20 [Dyazide 37.5-25 Capsule] Previous Rx's Medication Instructions Recorded Atorvastatin [Lipitor] 80 mg PO HS #30 tab 03/28/18 Nitroglycerin Sl Tabs [Nitrostat] 0.4 mg SUBLINGUAL Q5M PRN #25 tab 03/28/18 Cefuroxime Axetil [Ceftin] 500 mg PO BID 7 Days #14 tab 07/01/20 Sennosides-Docusate Sodium 1 each PO BID #10 tab 07/01/20 [Senokot-S] metroNIDAZOLE [Flagyl] 500 mg PO QID 7 Days #28 tab 07/01/20 Allergies Allergy/AdvReac Type Severity Reaction Status Date / Time Iodinated Contrast Media Allergy Dyspnea Verified 07/07/20 23:30 [Iodinated Contrast Media - IV Dye] latex Allergy Rash/Hives Verified 07/07/20 23:30 orange juice [[place]] Allergy Itching Verified 07/07/20 23:30 Penicillins Allergy Anaphylaxis Verified 07/07/20 23:30 wheat Allergy Itching Verified 07/07/20 23:30 lisinopril AdvReac Cough Verified 07/07/20 23:30 Review of Systems ROS Statement: Those systems with pertinent positive or pertinent negative responses have been documented in the HPI. ROS Other: All systems not noted in ROS Statement are negative. Past Medical History Past Medical History: Asthma, Hyperlipidemia, Hypertension, Myocardial Infarc tion (SD), Osteoarthritis (OA), Sleep Apnea/CPAP/BIPAP Additional Past Medical History / Comment(s): bulging disc Last Myocardial Infarction Date:: 03/25/2018 History of Any Multi-Drug Resistant Organisms: None Reported Past Surgical History: Adenoidectomy, Hysterectomy, Joint Replacement, Orthopedic Surgery, Tonsillectomy, Tubal Ligation, Uterine Ablation Additional Past Surgical History / Comment(s): Right knee replacement Past Anesthesia/Blood Transfusion Reactions: No Reported Reaction Past Psychological History: Depression Smoking Status: Never smoker Past Alcohol Use History: None Reported Past Drug Use History: None Reported - Past Family History Mother Family Medical History: Osteoarthritis (OA) Additional Family Medical History / Comment(s): heart murmur Father Family Medical History: Cancer, Diabetes Mellitus, Hypertension General Exam Limitations: no limitations General appearance: alert, in no apparent distress, other (This is a well- developed, well-nourished adult female patient in no acute distress. Vital signs upon presentation are temperature 99.1F, pulse 83, respirations 18, blood pressure 125/69, pulse ox 98% on room air.) Eye exam: Present: normal appearance, PERRL, EOMI. Absent: scleral icterus, conjunctival injection, periorbital swelling ENT exam: Present: normal exam, normal oropharynx, mucous membranes moist, TM's normal bilaterally Respiratory exam: Present: normal lung sounds bilaterally. Absent: respiratory distress, wheezes, rales, rhonchi, stridor Cardiovascular Exam: Present: regular rate, normal rhythm, normal heart sounds. Absent: systolic murmur, diastolic murmur, rubs, gallop, clicks GI/Abdominal exam: Present: soft, normal bowel sounds. Absent: distended, tenderness, guarding, rebound, rigid Neurological exam: Present: alert, oriented X3, CN II-XII intact Psychiatric exam: Present: normal affect, normal mood Skin exam: Present: warm, dry, intact, normal color. Absent: rash Course Vital Signs 07/07/20 23:26 Temperature 99.1 F Pulse Rate 83 Respiratory 18 Rate Blood Pressure 125/69 O2 Sat by Pulse 98 Oximetry Medical Decision Making - Medical Decision Making 55-year-old female patient presents to the emergency department today for evaluation of elevated blood pressure, dizziness, nausea. Physical examination is relatively unremarkable. She is neurologically intact. No focal deficits. She is also reporting chest pressure with this. EKG showed no ST elevation or depression. Labs reviewed and did reveal elevated white blood count at 17.9. Troponin was negative. Chest x-ray shows no acute cardiopulmonary process. Patient was admitted at the beginning of June for sepsis, they're unable to find a source. She is currently taking Ceftin and Flagyl. Denies any fevers. Given cardiac history we will admit to the hospital for serial troponins and further evaluation by cardiology in the morning. - Lab Data Result diagrams: 07/08/20 00:24 07/08/20 00:24 Lab Results 07/08/20 07/08/20 07/08/20 Range/Units 00:24 00:24 00:24 WBC 17.9 H (3.8-10.6) k/uL RBC 5.05 (3.80-5.40) m/uL Hgb 14.6 (11.4-16.0) gm/dL Hct 44.6 (34.0-46.0) % MCV 88.3 (80.0-100.0) fL MCH 28.8 (25.0-35.0) pg MCHC 32.7 (31.0-37.0) g/dL RDW 14.1 (11.5-15.5) % Plt Count 369 (150-450) k/uL Neutrophils % 64 % Lymphocytes % 26 % Monocytes % 4 % Eosinophils % 4 % Basophils % 1 % Neutrophils # 11.5 H (1.3-7.7) k/uL Lymphocytes # 4.6 (1.0-4.8) k/uL Monocytes # 0.8 (0-1.0) k/uL Eosinophils # 0.6 (0-0.7) k/uL Basophils # 0.2 (0-0.2) k/uL PT 10.1 (9.0-12.0) sec INR 1.0 (<1.2) APTT 23.7 (22.0-30.0) sec Sodium 138 (137-145) mmol/L Potassium 3.7 (3.5-5.1) mmol/L Chloride 101 (98-107) mmol/L Carbon Dioxide 28 (22-30) mmol/L Anion Gap 9 mmol/L BUN 16 (7-17) mg/dL Creatinine 0.84 (0.52-1.04) mg/dL Est GFR (CKD-EPI)AfAm >90 (>60 ml/min/1.73 sqM) Est GFR (CKD-EPI)NonAf 78 (>60 ml/min/1.73 sqM) Glucose 101 H (74-99) mg/dL Calcium 9.5 (8.4-10.2) mg/dL Magnesium 2.1 (1.6-2.3) mg/dL Total Bilirubin 0.4 (0.2-1.3) mg/dL AST 31 (14-36) U/L ALT 33 (4-34) U/L Alkaline Phosphatase 56 (38-126) U/L Troponin I (0.000-0.034) ng/mL Total Protein 6.5 (6.3-8.2) g/dL Albumin 4.2 (3.5-5.0) g/dL Lipase 91 (23-300) U/L 07/08/20 Range/Units 00:24 WBC (3.8-10.6) k/uL RBC (3.80-5.40) m/uL Hgb (11.4-16.0) gm/dL Hct (34.0-46.0) % MCV (80.0-100.0) fL MCH (25.0-35.0) pg MCHC (31.0-37.0) g/dL RDW (11.5-15.5) % Plt Count (150-450) k/uL Neutrophils % % Lymphocytes % % Monocytes % % Eosinophils % % Basophils % % Neutrophils # (1.3-7.7) k/uL Lymphocytes # (1.0-4.8) k/uL Monocytes # (0-1.0) k/uL Eosinophils # (0-0.7) k/uL Basophils # (0-0.2) k/uL PT (9.0-12.0) sec INR (<1.2) APTT (22.0-30.0) sec Sodium (137-145) mmol/L Potassium (3.5-5.1) mmol/L Chloride (98-107) mmol/L Carbon Dioxide (22-30) mmol/L Anion Gap mmol/L BUN (7-17) mg/dL Creatinine (0.52-1.04) mg/dL Est GFR (CKD-EPI)AfAm (>60 ml/min/1.73 sqM) Est GFR (CKD-EPI)NonAf (>60 ml/min/1.73 sqM) Glucose (74-99) mg/dL Calcium (8.4-10.2) mg/dL Magnesium (1.6-2.3) mg/dL Total Bilirubin (0.2-1.3) mg/dL AST (14-36) U/L ALT (4-34) U/L Alkaline Phosphatase (38-126) U/L Troponin I <0.012 (0.000-0.034) ng/mL Total Protein (6.3-8.2) g/dL Albumin (3.5-5.0) g/dL Lipase (23-300) U/L - EKG Data -: EKG Interpreted by [place] EKG Comments: EKG obtained at 0019 shows normal sinus rhythm with a ventricular rate of 82, W[place] interval 198, QRS duration 104, QT 376, QTc 439. No evidence of ST elevation or depression - Radiology Data Radiology results: report reviewed, image reviewed Two-view x-ray of the chest was obtained. Report is reviewed in its entirety. Impression by Dr. Treadwell shows normal chest. Normal heart. No change. Disposition Clinical Impression: Chest pain, Dizziness, Leukocytosis Disposition: ADMITTED IP TO THIS HOSP Condition: Serious Referrals: Teagan Camargo MD [Primary Care Provider] - 1-2 days Decision to Admit Reason: Admit from EC Decision Date: 07/08/20 Decision Time: 01:36
[2020-07-08] MEDS ORDERED: NALOXONE 0.4 MG/ML 1 ML VIAL IV PRN (01:36)
[2020-07-08] MEDS ORDERED: ONDANSETRON 4 MG/2 ML VIAL IVP PRN (01:36)
[2020-07-08] MEDS: SODIUM CHLORIDE 0.9% 1,000 ML IV SCH ×2 (06:36→17:44)
[2020-07-08] MEDS ORDERED: SYMBICORT 160-4.5 MCG INHALER INHALATION PRN (09:14)
[2020-07-08] MEDS ORDERED: ALBUTEROL NEBULIZED 2.5 MG/3 ML INHALATION PRN ×2 (09:14)
--- NOTE | 2020-07-08 09:59 | P.CRDCN ---
History of Present Illness Consult date: 07/08/20 Requesting physician: Arnulfo Barrios Reason for Consult (text): Chest pain, dizziness Chief complaint: Elevated blood pressure, headache and dizziness History of present illness: This is a pleasant 55-year-old male patient who follows with Dr. Nuñez in the office. This a history of PR in 2018 at which time cardiac catheterization showed critical stenosis involving the left circumflex and she subsequently underwent stenting of that vessel. Also has a history of hypertension hyperlipidemia and prior smoking. She was recently admitted with sepsis of unknown origin. She was discharged on antibiotics. She was seen in the office yesterday by Dr. Covarrubias and at that time had been complaining of some palpitations and heart rate was elevated in sinus rhythm. She was initiated on Toprol tartrate 12.5 mg by mouth twice a day. She complained of having a headache all day yesterday. She decided to come to the emergency department after getting elevated blood pressure readings at home. One blood pressure reading was 160/148 late last night and she was feeling somewhat dizzy with a headache she's also been getting some chest pressure that is different in character compared to what she experienced with her PR. She was also feeling somewhat short of breath. Despite elevated readings at home blood pressure yesterday in the office was 126/70 and blood pressure on admission was 125/69 wi th subsequent blood pressures being well controlled. Labs on admission showed white blood cell count of 17,900, potassium 3.7, BUN 16, creatinine 0.84 and troponins have been negative 3. EKG showed sinus rhythm with evidence of prior infarct but no evidence of acute ischemia. Past Medical History Past Medical History: Asthma, Hyperlipidemia, Hypertension, Myocardial Infarction (PR), Osteoarthritis (OA), Sleep Apnea/CPAP/BIPAP Additional Past Medical History / Comment(s): bulging disc Last Myocardial Infarction Date:: 03/25/2018 History of Any Multi-Drug Resistant Organisms: None Reported Past Surgical History: Adenoidectomy, Hysterectomy, Joint Replacement, Orthopedic Surgery, Tonsillectomy, Tubal Ligation, Uterine Ablation Additional Past Surgical History / Comment(s): Right knee replacement Past Anesthesia/Blood Transfusion Reactions: No Reported Reaction Past Psychological History: Depression Smoking Status: Never smoker Past Alcohol Use History: None Reported Past Drug Use History: None Reported - Past Family History Mother Family Medical History: Osteoarthritis (OA) Additional Family Medical History / Comment(s): heart murmur Father Family Medical History: Cancer, Diabetes Mellitus, Hypertension Medications and Allergies Home Medications Medication Instructions Recorded Confirmed Type Gabapentin [Neurontin] 300 mg PO TID 03/26/18 07/08/20 History buPROPion SR [Wellbutrin SR] 150 mg PO HS 03/26/18 07/08/20 History Atorvastatin [Lipitor] 80 mg PO HS #30 tab 03/28/18 07/08/20 Rx Nitroglycerin Sl Tabs [Nitrostat] 0.4 mg SUBLINGUAL Q5M PRN #25 tab 03/28/18 07/08/20 Rx Acetaminophen Tab [Tylenol] 1,000 mg PO Q6H PRN 06/25/20 07/08/20 History Albuterol Inhaler [Ventolin Hfa 2 puff INHALATION RT-Q4H PRN 06/25/20 07/08/20 History Inhaler] Albuterol Nebulized [Ventolin 2.5 mg INHALATION RT-QID PRN 06/25/20 07/08/20 History Nebulized] Aspirin EC [Ecotrin Low Dose] 81 mg PO DAILY 06/25/20 07/08/20 History Baclofen [Lioresal] 5 mg PO TID 06/25/20 07/08/20 History Budesonide/Formoterol Fumarate 2 puff INHALATION RT-BID PRN 06/25/20 07/08/20 History [Symbicort 160-4.5 Mcg Inhaler] Cetirizine HCl [Zyrtec] 10 mg PO DAILY 06/25/20 07/08/20 History Losartan [Cozaar] 25 mg PO DAILY 06/25/20 07/08/20 History Meloxicam [Mobic] 15 mg PO DAILY 06/25/20 07/08/20 History Montelukast [Singulair] 10 mg PO HS 06/25/20 07/08/20 History Omeprazole [PriLOSEC] 20 mg PO BID 06/25/20 07/08/20 History Oxybutynin Chloride [Ditropan] 5 mg PO BID 06/25/20 07/08/20 History Triamterene-Hctz 37.5-25Mg 1 cap PO DAILY 06/25/20 07/08/20 History [Dyazide 37.5-25 Capsule] metroNIDAZOLE [Flagyl] 500 mg PO QID 7 Days #28 tab 07/01/20 07/08/20 Rx Metoprolol Tartrate [Lopressor] 12.5 mg PO BID 07/08/20 07/08/20 History Sennosides-Docusate Sodium 1 tab PO BID 07/08/20 07/08/20 History [Senokot-S] Allergies Allergy/AdvReac Type Severity Reaction Status Date / Time Iodinated Contrast Media Allergy Dyspnea Verified 07/08/20 08:23 [Iodinated Contrast Media - IV Dye] latex Allergy Rash/Hives Verified 07/08/20 08:23 orange juice [[place]] Allergy Itching Verified 07/08/20 08:23 Penicillins Allergy Anaphylaxis Verified 07/08/20 08:23 wheat Allergy Itching Verified 07/08/20 08:23 lisinopril AdvReac Cough Verified 07/08/20 08:23 Physical Exam Vitals: Vital Signs Temp Pulse Pulse Pulse Resp BP BP 07/08/20 08:12 98.7 F 74 74 16 105/70 07/08/20 07:51 97.8 F 78 18 136/84 07/08/20 03:40 77 18 122/75 07/08/20 01:35 79 18 130/78 07/07/20 23:26 99.1 F 83 18 125/69 Pulse Ox 07/08/20 08:12 97 07/08/20 07:51 98 07/08/20 03:40 98 07/08/20 01:35 98 07/07/20 23:26 98 Intake and Output 07/07/20 07/08/20 07/08/20 22:59 06:59 14:59 Other: Weight 77.111 kg 77.111 kg PHYSICAL EXAMINATION: This is a 55-year-old female in no apparent distress at the time of my examination. VITAL SIGNS: Blood pressure 105/70, heart rate 74, respirations 16, temp 98.7F. Patient is 97 % on room air. HEENT: Head is atraumatic, normocephalic. Pupils are equal, round. Sclerae anicteric. Conjunctivae are clear. Mucous membranes of the mouth are moist. Neck is supple. There is no elevated jugular venous pressure. No carotid bruit is heard. CHEST EXAMINATION: Clear to auscultation bilaterally. No wheezes rales or rhonchi. Respirations even and nonlabored. HEART EXAMINATION: Heart regular, positive S1 and S2. No S3. No S4. With a soft systolic murmur. ABDOMEN: Soft, nontender. Bowel sounds are heard. No organomegaly noted. EXTREMITIES: 2+ peripheral pulses with no evidence of peripheral edema and no calf tenderness noted. NEUROLOGIC EXAMINATION: Patient is awake, alert and oriented x3. Results 07/08/20 00:24 07/08/20 00:24 Cardiac Enzymes 07/08/20 07/08/20 07/08/20 Range/Units 00:24 00:24 03:11 AST 31 (14-36) U/L Troponin I <0.012 <0.012 (0.000-0.034) ng/mL 07/08/20 Range/Units 07:04 AST (14-36) U/L Troponin I <0.012 (0.000-0.034) ng/mL Coagulation 07/08/20 Range/Units 00:24 PT 10.1 (9.0-12.0) sec APTT 23.7 (22.0-30.0) sec CBC 07/08/20 Range/Units 00:24 WBC 17.9 H (3.8-10.6) k/uL RBC 5.05 (3.80-5.40) m/uL Hgb 14.6 (11.4-16.0) gm/dL Hct 44.6 (34.0-46.0) % Plt Count 369 (150-450) k/uL Comprehensive Metabolic Panel 07/08/20 Range/Units 00:24 Sodium 138 (137-145) mmol/L Potassium 3.7 (3.5-5.1) mmol/L Chloride 101 (98-107) mmol/L Carbon Dioxide 28 (22-30) mmol/L BUN 16 (7-17) mg/dL Creatinine 0.84 (0.52-1.04) mg/dL Glucose 101 H (74-99) mg/dL Calcium 9.5 (8.4-10.2) mg/dL AST 31 (14-36) U/L ALT 33 (4-34) U/L Alkaline Phosphatase 56 (38-126) U/L Total Protein 6.5 (6.3-8.2) g/dL Albumin 4.2 (3.5-5.0) g/dL Current Medications Generic Name Dose Route Start Last Admin Trade Name Freq PRN Reason Stop Dose Admin Acetaminophen 1,000 mg 07/08/20 09:14 Tylenol Tab PO Q6H PRN Fever Albuterol Sulfate 2.5 mg 07/08/20 09:14 Ventolin Nebulized INHALATION RT-Q4H PRN Shortness Of Breath Aspirin 81 mg 07/08/20 09:15 Aspirin PO DAILY [facility] Atorvastatin Calcium 80 mg 07/08/20 21:00 Lipitor PO HS [facility] Baclofen 5 mg 07/08/20 16:00 Lioresal PO TID [facility] Budesonide/Formoterol Fumarate 2 puff 07/08/20 09:14 Symbicort 160-4.5 Mcg Inhaler INHALATION RT-BID PRN Shortness Of Breath Bupropion HCl 150 mg 07/08/20 21:00 Wellbutrin Sr PO HS [facility] Gabapentin 300 mg 07/08/20 16:00 Neurontin PO TID [facility] Sodium Chloride 1,000 mls @ 75 mls/hr 07/08/20 01:45 07/08/20 06:36 Saline 0.9% IV 75 mls/hr .[id number] [facility] Administration Loratadine 10 mg 07/08/20 09:15 Claritin PO DAILY [facility] Losartan Potassium 25 mg 07/09/20 09:00 Cozaar PO DAILY [facility] Meloxicam 15 mg 07/09/20 09:00 Mobic PO DAILY [facility] Montelukast Sodium 10 mg 07/08/20 21:00 Singulair PO HS [facility] Naloxone HCl 0.2 mg 07/08/20 01:36 Narcan IV Q2M PRN Opioid Reversal Ondansetron HCl 4 mg 07/08/20 01:36 07/08/20 04:21 Zofran IVP 4 mg Q8HR PRN Administration Nausea And Vomiting Oxybutynin Chloride 5 mg 07/08/20 21:00 Ditropan PO BID [facility] Pantoprazole Sodium 40 mg 07/08/20 09:30 Protonix PO AC-BRKFST [facility] Senna/Docusate Sodium 1 each 07/08/20 21:00 Senokot-S PO BID [facility] Intake and Output 07/07/20 07/08/20 07/08/20 22:59 06:59 14:59 Other: Weight 77.111 kg 77.111 kg Patient Weight 07/09/20 06:59 Weight 77.111 kg 07/08/20 00:24 07/08/20 00:24 Assessment and Plan Assessment: #1 symptoms of dizziness, headache and chest pressure, troponins negative 3, no evidence of ischemia on EKG, stress test in January of this year showed no evidence of stress-induced ischemia. #2 CAD with history of PR and stent placement to left circumflex in 2018 #3 hypertension, well controlled here and in the office but with high readings at home #4 hyperlipidemia #5 recent hospitalization with sepsis of unknown origin #6 history of mild AI Plan: From cardiology's perspective, we'll check orthostatic blood pressures. We'll resume low-dose beta nanci. Elevated blood pressure readings likely related to an accuracy of the home blood pressure cuff. No further cardiac workup is needed at this time. She'll follow-up in the office with Dr. Nuñez. [employer] note has been reviewed, I agree with a documented findings and plan of care. Patient was seen and examined.
--- NOTE | 2020-07-08 10:03 | P.HPIM ---
History of Present Illness This is a pleasant 55 years old female with past medical history of asthma, hyperlipidemia, hypertension, osteoarthritis, sleep apnea on CPAP/BiPAP, disc disease . Patient presents with dizziness of 3 days' duration associated with nausea and no vomiting, she Her dizziness is about to fall and found similar to presyncope but she denies passing out. No vertigo. She was concerned because blood pressure was elevated, and her admission it was 168/148 and heart rate 84. 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 Also patient complaining of from headache which was bad yesterday but resolved, and started to have headache this morning. He feels generally fatigued No weakness or numbness. She was recently in the hospital 06/25-07/01 for fever of unknown origin and history of recent removal of pain stimulator (06/15-06/21 ) and rule out paraspinal abscess. Patient had negative bone scan, lumbar MRI and computed tomography scan. She denies smoking, alcohol or illicit tracts. She uses CPAP machine at home. Vital signs stable. leukocytosis of 17.9, going up from 13.6, earlier in the mouth was 13.6 and 15.3 k. Rest of labs including INR, BMP and liver enzymes were unremarkable. Lipase is normal. EKG showing normal sinus rhythm at [address]-T changes.: No acute process. She was started on normal sinus 75 mL/h, Zofran and Reglan and antevert and Benadryl. Cartilage team has been already consulted for chest pain and dizziness Review of Systems CONSTITUTIONAL: No fever, no malaise, no fatigue. HEENT: No recent visual problems or hearing problems. Denied any sore throat. CARDIOVASCULAR: No orthopnea, PND, no palpitations, no syncope. PULMONARY: No shortness of breath, no cough, no hemoptysis. GASTROINTESTINAL: No diarrhea, no nausea, no vomiting, no abdominal pain. Normoactive bowel sounds. NEUROLOGICAL: No headaches, no weakness, no numbness. HEMATOLOGICAL: Denies any bleeding or petechiae. GENITOURINARY: Denies any burning micturition, frequency, or urgency. MUSCULOSKELETAL/RHEUMATOLOGICAL: Denies any joint pain, swelling, or any muscle pain. ENDOCRINE: Denies any polyuria or polydipsia. Past Medical History Past Medical History: Asthma, Hyperlipidemia, Hypertension, Myocardial Infarction (ME), Osteoarthritis (OA), Sleep Apnea/CPAP/BIPAP Additional Past Medical History / Comment(s): bulging disc Last Myocardial Infarction Date:: 03/25/2018 History of Any Multi-Drug Resistant Organisms: None Reported Past Surgical History: Adenoidectomy, Hysterectomy, Joint Replacement, Orthopedic Surgery, Tonsillectomy, Tubal Ligation, Uterine Ablation Additional Past Surgical History / Comment(s): Right knee replacement Past Anesthesia/Blood Transfusion Reactions: No Reported Reaction Past Psychological History: Depression Smoking Status: Never smoker Past Alcohol Use History: None Reported Past Drug Use History: None Reported - Past Family History Mother Family Medical History: Osteoarthritis (OA) Additional Family Medical History / Comment(s): heart murmur Father Family Medical History: Cancer, Diabetes Mellitus, Hypertension Medications and Allergies Home Medications Medication Instructions Recorded Confirmed Type Gabapentin [Neurontin] 300 mg PO TID 03/26/18 07/08/20 History buPROPion SR [Wellbutrin SR] 150 mg PO HS 03/26/18 07/08/20 History Atorvastatin [Lipitor] 80 mg PO HS #30 tab 03/28/18 07/08/20 Rx Nitroglycerin Sl Tabs [Nitrostat] 0.4 mg SUBLINGUAL Q5M PRN #25 tab 03/28/18 07/08/20 Rx Acetaminophen Tab [Tylenol] 1,000 mg PO Q6H PRN 06/25/20 07/08/20 History Albuterol Inhaler [Ventolin Hfa 2 puff INHALATION RT-Q4H PRN 06/25/20 07/08/20 History Inhaler] Albuterol Nebulized [Ventolin 2.5 mg INHALATION RT-QID PRN 06/25/20 07/08/20 History Nebulized] Aspirin EC [Ecotrin Low Dose] 81 mg PO DAILY 06/25/20 07/08/20 History Baclofen [Lioresal] 5 mg PO TID 06/25/20 07/08/20 History Budesonide/Formoterol Fumarate 2 puff INHALATION RT-BID PRN 06/25/20 07/08/20 History [Symbicort 160-4.5 Mcg Inhaler] Cetirizine HCl [Zyrtec] 10 mg PO DAILY 06/25/20 07/08/20 History Losartan [Cozaar] 25 mg PO DAILY 06/25/20 07/08/20 History Meloxicam [Mobic] 15 mg PO DAILY 06/25/20 07/08/20 History Montelukast [Singulair] 10 mg PO HS 06/25/20 07/08/20 History Omeprazole [PriLOSEC] 20 mg PO BID 06/25/20 07/08/20 History Oxybutynin Chloride [Ditropan] 5 mg PO BID 06/25/20 07/08/20 History Triamterene-Hctz 37.5-25Mg 1 cap PO DAILY 06/25/20 07/08/20 History [Dyazide 37.5-25 Capsule] metroNIDAZOLE [Flagyl] 500 mg PO QID 7 Days #28 tab 07/01/20 07/08/20 Rx Metoprolol Tartrate [Lopressor] 12.5 mg PO BID 07/08/20 07/08/20 History Sennosides-Docusate Sodium 1 tab PO BID 07/08/20 07/08/20 History [Senokot-S] Allergies Allergy/AdvReac Type Severity Reaction Status Date / Time Iodinated Contrast Media Allergy Dyspnea Verified 07/08/20 08:23 [Iodinated Contrast Media - IV Dye] latex Allergy Rash/Hives Verified 07/08/20 08:23 orange juice [[place]] Allergy Itching Verified 07/08/20 08:23 Penicillins Allergy Anaphylaxis Verified 07/08/20 08:23 wheat Allergy Itching Verified 07/08/20 08:23 lisinopril AdvReac Cough Verified 07/08/20 08:23 Physical Exam Vitals: Vital Signs Temp Pulse Pulse Pulse Resp BP BP 07/08/20 08:12 98.7 F 74 74 16 105/70 07/08/20 07:51 97.8 F 78 18 136/84 07/08/20 03:40 77 18 122/75 07/08/20 01:35 79 18 130/78 07/07/20 23:26 99.1 F 83 18 125/69 Pulse Ox 07/08/20 08:12 97 07/08/20 07:51 98 07/08/20 03:40 98 07/08/20 01:35 98 07/07/20 23:26 98 Intake and Output 07/07/20 07/08/20 07/08/20 22:59 06:59 14:59 Other: Weight 77.111 kg 77.111 kg Results CBC & Chem 7: 07/08/20 00:24 07/08/20 00:24 Labs: Abnormal Lab Results - Last 24 Hours (Table) 07/08/20 07/08/20 Range/Units 00:24 00:24 WBC 17.9 H (3.8-10.6) k/uL Neutrophils # 11.5 H (1.3-7.7) k/uL Glucose 101 H (74-99) mg/dL Thrombosis Risk Factor Assmnt - Choose All That Apply Each Factor Represents 1 point: Age 41-60 years, Medical pt on bed rest, Obesity (BMI >25) Thrombosis Risk Factor Assessment Total Risk Factor Score: 3 Thrombosis Risk Factor Assessment Level: Moderate Risk Assessment and Plan Assessment: Dizziness or presyncope Uncontrolled hypertension, with headache Leukocytosis Hyperlipidemia Osteoarthritis Sleep apnea on CPAP/BiPAP Disc disease Recent history of sepsis of unknown primary site, discharge on oral antibiotics Obesity with BMI of 32 Plan: This is a pleasant 65 years old female who presents with dizziness and leukocytosis. Continue with Antivert as needed. Continue with IV fluids. Follow-up recommendation by recording studio set up worker. Check TSH and B12 Also we'll consult infectious disease for leukocytosis and neurology for dizziness Labs and medication were reviewed.. Continue same treatment. Continue with symptomatic treatment. Resume home medication. Monitor lytes and vitals. DVT and GI prophylaxis. Further recommendations of the clinical course of the patient DVT prophylaxis: Subcutaneous heparin GI Prophylaxis: Pepcid PT/OT: Pending Prognosis is guarded
[2020-07-08] MEDS: HEPARIN SODIUM,PORCINE 5,000 UNIT/ML 1 ML VIAL SQ SCH ×2 (11:41→22:31)
[2020-07-08] MEDS: PANTOPRAZOLE 40 MG TABLET PO SCH (11:42)
[2020-07-08] MEDS: LORATADINE 10 MG TAB PO SCH (11:42)
[2020-07-08] MEDS: ASPIRIN 81 MG PO SCH (11:42)
[2020-07-08] MEDS: GABAPENTIN 300 MG CAP PO SCH ×2 (17:41→22:31)
[2020-07-08] MEDS: BACLOFEN 10 MG TAB PO SCH ×2 (17:41→22:32)
[2020-07-08] MEDS: BARIUM SULFATE 450 ML ORAL.SUSP BOTTLE PO PRN ×2 (17:41→20:33)
--- NOTE | 2020-07-08 20:30 | P.CNNES ---
History of Present Illness Consult date: 07/08/20 Requesting physician: Gustavo E Phyllis Reason for Consult: dizziness and headache History of Present Illness: This is a 55-year-old right-handed female with medical history of chronic lower back pain, hypertension, myocardial infarction (2 years ago), obstructive sleep apnea presented to the emergency department on 07/07/2020 for evaluation of dizziness and nausea as well as elevated blood pressure. According to the pat ient for the last 3 days she is been having elevated blood pressure she said that her blood pressure was 160/148 at home as she repeated again was 196/114. Has been feeling lightheaded and the she feels lightheaded upon walk-in. She denies any dizziness. She said that she had a history of vertigo and this is not like her vertigo. And has been having headache in the frontal occipital area and stated that was a rated the pain about 8-9 and over 10. Had some mild photophobia with this. she was started on metoprolol 12.5 mg twice a day this . She denies any associated weakness numbness any vision change, any difficulty swallowing. She denies any vomiting she does have nausea. Currently she feels the headache is about a 3 she denies any photophobia photophobia. She also has been having belching for the last 3 days. Hospital workup consisted of: Vital signs on presentation was blood pressure 125/69, respiratory is 18, heart rate of 83, temperature of 99.1 Fahrenheit oral, respiratory rate was 98 at room air. EKG: Reported as normal sinus rhythm. Inferior infarct age undetermined. Possible anterior infarct age undetermined. Ventricular rate of 82. White blood cell of 17.9 and it's predominantly neutrophilic. Of note the patient has a history of chronic lower back pain that is on the right side that radiates towards the right leg. 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 So had a temporary device and her lower back that was removed on 06/21/2020. She only had the device for a couple days and that was removed to assess whether the device works or not and if it does then that the patient was supposed to get the permanent one in the 4- 6 weeks. She presented to [facility] on 06/25/2020 for fever and abdominal pain. He had MRI of lumbar spine which ruled out or abscess. She stated that the there unable to find a cause for sepsis and was discharged on antibiotic. 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 Review of Systems Review of system: The 12 point system was reviewed and apparent positive and negative per HPI. Past Medical History Past Medical History: Asthma, Hyperlipidemia, Hypertension, Myocardial Infarction ([place]), Osteoarthritis (OA), Sleep Apnea/CPAP/BIPAP Additional Past Medical History / Comment(s): bulging disc Last Myocardial Infarction Date:: 03/25/2018 History of Any Multi-Drug Resistant Organisms: None Reported Past Surgical History: Adenoidectomy, Hysterectomy, Joint Replacement, Orthopedic Surgery, Tonsillectomy, Tubal Ligation, Uterine Ablation Additional Past Surgical History / Comment(s): Right knee replacement Past Anesthesia/Blood Transfusion Reactions: No Reported Reaction Past Psychological History: Depression Smoking Status: Never smoker Past Alcohol Use History: None Reported Past Drug Use History: None Reported - Past Family History Mother Family Medical History: Osteoarthritis (OA) Additional Family Medical History / Comment(s): heart murmur Father Family Medical History: Cancer, Diabetes Mellitus, Hypertension Medications and Allergies Home Medications Medication Instructions Recorded Confirmed Type Gabapentin [Neurontin] 300 mg PO TID 03/26/18 07/08/20 History buPROPion SR [Wellbutrin SR] 150 mg PO HS 03/26/18 07/08/20 History Atorvastatin [Lipitor] 80 mg PO HS #30 tab 03/28/18 07/08/20 Rx Nitroglycerin Sl Tabs [Nitrostat] 0.4 mg SUBLINGUAL Q5M PRN #25 tab 03/28/18 07/08/20 Rx Acetaminophen Tab [Tylenol] 1,000 mg PO Q6H PRN 06/25/20 07/08/20 History Albuterol Inhaler [Ventolin Hfa 2 puff INHALATION RT-Q4H PRN 06/25/20 07/08/20 History Inhaler] Albuterol Nebulized [Ventolin 2.5 mg INHALATION RT-QID PRN 06/25/20 07/08/20 History Nebulized] Aspirin EC [Ecotrin Low Dose] 81 mg PO DAILY 06/25/20 07/08/20 History Baclofen [Lioresal] 5 mg PO TID 06/25/20 07/08/20 History Budesonide/Formoterol Fumarate 2 puff INHALATION RT-BID PRN 06/25/20 07/08/20 History [Symbicort 160-4.5 Mcg Inhaler] Cetirizine HCl [Zyrtec] 10 mg PO DAILY 06/25/20 07/08/20 History Losartan [Cozaar] 25 mg PO DAILY 06/25/20 07/08/20 History Meloxicam [Mobic] 15 mg PO DAILY 06/25/20 07/08/20 History Montelukast [Singulair] 10 mg PO HS 06/25/20 07/08/20 History Omeprazole [PriLOSEC] 20 mg PO BID 06/25/20 07/08/20 History Oxybutynin Chloride [Ditropan] 5 mg PO BID 06/25/20 07/08/20 History Triamterene-Hctz 37.5-25Mg 1 cap PO DAILY 06/25/20 07/08/20 History [Dyazide 37.5-25 Capsule] metroNIDAZOLE [Flagyl] 500 mg PO QID 7 Days #28 tab 07/01/20 07/08/20 Rx Metoprolol Tartrate [Lopressor] 12.5 mg PO BID 07/08/20 07/08/20 History Sennosides-Docusate Sodium 1 tab PO BID 07/08/20 07/08/20 History [Senokot-S] Allergies Allergy/AdvReac Type Severity Reaction Status Date / Time Iodinated Contrast Media Allergy Dyspnea Verified 07/08/20 08:23 [Iodinated Contrast Media - IV Dye] latex Allergy Rash/Hives Verified 07/08/20 08:23 orange juice [[place]] Allergy Itching Verified 07/08/20 08:23 Penicillins Allergy Anaphylaxis Verified 07/08/20 08:23 wheat Allergy Itching Verified 07/08/20 08:23 lisinopril AdvReac Cough Verified 07/08/20 08:23 Physical Examination - Vital Signs Vital Signs: Vital Signs Temp Pulse Pulse Pulse Resp BP BP 07/08/20 16:15 97.1 F L 81 16 127/69 07/08/20 11:30 97.1 F L 86 16 140/67 07/08/20 08:12 98.7 F 74 74 16 105/70 07/08/20 07:51 97.8 F 78 18 136/84 07/08/20 03:40 77 18 122/75 07/08/20 01:35 79 18 130/78 07/07/20 23:26 99.1 F 83 18 125/69 Pulse Ox 07/08/20 16:15 98 07/08/20 11:30 97 07/08/20 08:12 97 07/08/20 07:51 98 07/08/20 03:40 98 07/08/20 01:35 98 07/07/20 23:26 98 Intake and Output 07/08/20 07/08/20 07/08/20 06:59 14:59 22:59 Other: # Voids 1 2 Weight 77.111 kg 77.111 kg GENERAL: The patient is lying in bed and is not in acute distress. CHEST: The heart rate is regular rate rhythm. No murmurs to auscultation. LUNG: Clear to auscultation bilaterally no wheezing noted throughout. Not labored breathing. ABDOMEN/GI: Bowel sounds present in all 4 quadrants. No tenderness to palpation throughout. NEUROLOGICAL: Higher mental function: The patient is awake, alert, oriented to self, place and time. Patient is following commands. No aphasia and no neglect. Cranial nerves: The pupils are round, equal and reactive to light and accommodation. Visual palomo are full to confrontation throughout. Extraocular movement is intact no nystagmus is noted. Facial sensation is normal to touch throughout. The facial strength is normal throughout. Hearing is normal b ilaterally to hand rub. Tongue is midline and moved [id number] without any difficulty. No dysarthria is noted. Shoulder shrug is normal bilaterally. Motor: The strength is 5 over 5 throughout. Normal tone and bulk. Cerebellum: Normal finger to nose heel to chin bilaterally. Sensation: Sensation is normal to touch throughout. Reflexes (right/left): 2+ Plantars are downgoing bilaterally. Results PT 10.1, INR 1.0, PTT of 23.7. AST of 31, ALP of 33. CRP of 20.8 - Laboratory Findings CBC and BMP: 07/08/20 00:24 07/08/20 00:24 Abnormal Lab Findings: Abnormal Labs 07/08/20 07/08/20 07/08/20 00:24 00:24 00:24 WBC 17.9 H Neutrophils # 11.5 H Glucose 101 H C-Reactive Protein 20.8 H Assessment and Plan Assessment: Patient has lightheadedness. She denies of dizziness. Leukocytosis unknown etiology Hypertension Plan: From a neurology perspective I'll order a CT of the head. Patient's headache questionable dizziness and possibly could be related to her elevated blood press ure that and she was having. Currently the headache is the controlled. We'll not place the patient on meclizine since the patient did have history of vertigo and she knows the what that the symptoms of vertigo was and she stated that this did not feel the same so I don't feel like there is any use of the medication. I'll order orthostatic vitals. Patient stated that her memory hasn't been sharp and as before and the last couple weeks so ordered vitamin B12, TSH folate. Regarding her leukocytosis, I.D. is consulted. If cannot find source of infection consider Lumbar Puncture if ok with I.D. team. Patient is currently on aspirin 81, Lipitor 80 mg for cardiac. Thank you for the consult. There is no neurology coverage over the weekend. Dr. Delacruz will take over this service on this Saturday. Justin Denny M.D. Neuro-hospitalist Time with Patient: Greater than 30
--- NOTE | 2020-07-08 21:50 | CT ---
EXAMINATION TYPE: CT brain wo con DATE OF EXAM: 07/08/2020 COMPARISON: 07/26/2016 HISTORY: headaches and dizziness CT DLP: 1070.4 mGycm Automated exposure control for dose reduction was used. Ventricles have normal size. There is no mass effect nor midline shift. There is no sign of intracran ial hemorrhage. The calvarium is intact. There is no evidence of cerebral edema. Skull base is intact . There is normal aeration of the temporal bones. IMPRESSION: Negative unenhanced head CT scan.
--- NOTE | 2020-07-08 22:07 | CT ---
EXAMINATION TYPE: CT abdomen pelvis wo con DATE OF EXAM: 07/08/2020 COMPARISON: 06/25/2020 HISTORY: abdominal pain CT DLP: 1289.4 mGycm Automated exposure control for dose reduction was used. Images obtained from the diaphragm to the floor the pelvis with oral contrast only. Lung bases are clear. There is no pleural effusion. Heart size is normal. There is no pericardial eff usion. Liver and gallbladder appear normal. Bile ducts are not dilated. Spleen is intact. There is no pancre atic mass. The stomach is intact. There is no adrenal mass. Kidneys have normal size and contour. There is no hydronephrosis. There is 2 cm cortical cyst lower pole right kidney. Ureters are not dilated. There is small umbilical hernia that measures 2 x 1 cm containing fat. There is no retroperitoneal adenopathy. Bladder distends serina hly. There is no inguinal hernia. There is hysterectomy. There is no free fluid in the pelvis. There is no evidence of a pelvic mass. Appendix is not definitely seen. There is no sign of thickened appendix. Oral contrast extends to the right colon. There is no evidence of a bowel obstruction. There is no mesenteric edema. There is no ascites or free air. Lumbar vertebra have normal alignment. Posterior elements are intact. There is no compression fractur e. Bony pelvis appears intact. Lumbar disc spaces are normal. There is no compression fracture. IMPRESSION: Negative CT scan abdomen and pelvis. No adverse change compared to old exam.
[2020-07-08] MEDS: MONTELUKAST 10 MG TAB PO SCH (22:31)
[2020-07-08] MEDS: ATORVASTATIN 80 MG TAB PO SCH (22:31)
[2020-07-08] MEDS: OXYBUTYNIN CHLORIDE 5 MG TAB PO SCH (22:31)
[2020-07-08] MEDS: FAMOTIDINE 20 MG/2 ML VIAL IV SCH (22:31)
[2020-07-08] MEDS: METOPROLOL TARTRATE 12.5 MG TAB PO SCH (22:31)
[2020-07-08] MEDS: buPROPion SR 150 MG TABLET.ER PO SCH (22:31)
[2020-07-08] MEDS: SENNOSIDES-DOCUSATE SODIUM 1 EACH TAB PO SCH (22:32)
--- NOTE | 2020-07-09 00:54 | P.CONS ---
History of Present Illness - Reason for Consult Consult date: 07/08/20 Leukocytosis Requesting physician: Gustavo E Sheet - Chief Complaint Dizziness and high blood pressure x few days - History of Present Illness Patient is a 55-year-old female was recently admitted at this facility in this patient who did have a fever and predominantly GI symptom of nausea vomiting and diarrhea with concern for possible GI source of infection though her CT of abdominal and pelvis came Back negative and the patient was unable to provide any stool sample has some diarrhea resolved patient also have a bone scan that was negative and an MRI the lumbar spine was negative as well patient subsequently discharged home on a short course of oral Flagyl and Ceftin, patient now presented back to the hospital with chief complaints of generalized weakness and dizziness and did have elevated blood pressure in outpatient setting. Patient medication has been recently adjusted patient denies having any fever Having any URI symptoms no chest pain or shortness of Abdominal Pain and Any Diarrhea to Me for Any Urinary Symptoms Patient Was Noticed to Have a White Count of 17,000 but No Fever Infectious Disease Was Consulted for Further Management of Her Elevated White Count and Concern for Possible Infection Review of Systems Positive point has been mentioned in the HPI rest of the systems are negative Past Medical History Past Medical History: Asthma, Hyperlipidemia, Hypertension, Myocardial Infarction ([place]), Osteoarthritis (OA), Sleep Apnea/CPAP/BIPAP Additional Past Medical History / Comment(s): bulging disc Last Myocardial Infarction Date:: 03/25/2018 History of Any Multi-Drug Resistant Organisms: None Reported Past Surgical History: Adenoidectomy, Hysterectomy, Joint Replacement, Orthopedic Surgery, Tonsillectomy, Tubal Ligation, Uterine Ablation Additional Past Surgical History / Comment(s): Right knee replacement Past Anesthesia/Blood Transfusion Reactions: No Reported Reaction Past Psychological History: Depression Smoking Status: Never smoker Past Alcohol Use History: None Reported Past Drug Use History: None Reported - Past Family History Mother Family Medical History: Osteoarthritis (OA) Additional Family Medical History / Comment(s): heart murmur Father Family Medical History: Cancer, Diabetes Mellitus, Hypertension Medications and Allergies Home Medications Medication Instructions Recorded Confirmed Type Gabapentin [Neurontin] 300 mg PO TID 03/26/18 07/08/20 History buPROPion SR [Wellbutrin SR] 150 mg PO HS 03/26/18 07/08/20 History Atorvastatin [Lipitor] 80 mg PO HS #30 tab 03/28/18 07/08/20 Rx Nitroglycerin Sl Tabs [Nitrostat] 0.4 mg SUBLINGUAL Q5M PRN #25 tab 03/28/18 07/08/20 Rx Acetaminophen Tab [Tylenol] 1,000 mg PO Q6H PRN 06/25/20 07/08/20 History Albuterol Inhaler [Ventolin Hfa 2 puff INHALATION RT-Q4H PRN 06/25/20 07/08/20 History Inhaler] Albuterol Nebulized [Ventolin 2.5 mg INHALATION RT-QID PRN 06/25/20 07/08/20 History Nebulized] Aspirin EC [Ecotrin Low Dose] 81 mg PO DAILY 06/25/20 07/08/20 History Baclofen [Lioresal] 5 mg PO TID 06/25/20 07/08/20 History Budesonide/Formoterol Fumarate 2 puff INHALATION RT-BID PRN 06/25/20 07/08/20 History [Symbicort 160-4.5 Mcg Inhaler] Cetirizine HCl [Zyrtec] 10 mg PO DAILY 06/25/20 07/08/20 History Losartan [Cozaar] 25 mg PO DAILY 06/25/20 07/08/20 History Meloxicam [Mobic] 15 mg PO DAILY 06/25/20 07/08/20 History Montelukast [Singulair] 10 mg PO HS 06/25/20 07/08/20 History Omeprazole [PriLOSEC] 20 mg PO BID 06/25/20 07/08/20 History Oxybutynin Chloride [Ditropan] 5 mg PO BID 06/25/20 07/08/20 History Triamterene-Hctz 37.5-25Mg 1 cap PO DAILY 06/25/20 07/08/20 History [Dyazide 37.5-25 Capsule] metroNIDAZOLE [Flagyl] 500 mg PO QID 7 Days #28 tab 07/01/20 07/08/20 Rx Metoprolol Tartrate [Lopressor] 12.5 mg PO BID 07/08/20 07/08/20 History Sennosides-Docusate Sodium 1 tab PO BID 07/08/20 07/08/20 History [Senokot-S] Allergies Allergy/AdvReac Type Severity Reaction Status Date / Time Iodinated Contrast Media Allergy Dyspnea Verified 07/08/20 08:23 [Iodinated Contrast Media - IV Dye] latex Allergy Rash/Hives Verified 07/08/20 08:23 orange juice [[place]] Allergy Itching Verified 07/08/20 08:23 Penicillins Allergy Anaphylaxis Verified 07/08/20 08:23 wheat Allergy Itching Verified 07/08/20 08:23 lisinopril AdvReac Cough Verified 07/08/20 08:23 Physical Exam Vitals: Vital Signs Temp Pulse Pulse Pulse Resp BP BP 07/08/20 11:30 97.1 F L 86 16 140/67 07/08/20 08:12 98.7 F 74 74 16 105/70 07/08/20 07:51 97.8 F 78 18 136/84 07/08/20 03:40 77 18 122/75 07/08/20 01:35 79 18 130/78 07/07/20 23:26 99.1 F 83 18 125/69 Pulse Ox 07/08/20 11:30 97 07/08/20 08:12 97 07/08/20 07:51 98 07/08/20 03:40 98 07/08/20 01:35 98 07/07/20 23:26 98 Intake and Output 07/08/20 07/08/20 07/08/20 06:59 14:59 22:59 Other: # Voids 1 Weight 77.111 kg 77.111 kg GENERAL DESCRIPTION: Middle-aged female lying in bed, no distress. No tachypnea or accessory muscle of respiration use. HEENT: Shows Pallor , no scleral icterus. Oral mucous membrane is dry. No phary ngeal erythema or thrush NECK: Trachea central, no thyromegaly. LUNGS: Unlabored breathing. Clear to auscultation anteriorly. No wheeze or crackle. HEART: S1, S2, regular rate and rhythm. No loud murmur ABDOMEN: Soft, no tenderness , guarding or rigidity, no organomegaly EXTREMITIES: No edema of feet. SKIN: No rash, no masses palpable. NEUROLOGICAL: The patient is awake, alert, oriented x3, mood and affect normal. Results CBC & Chem 7: 07/08/20 00:24 07/08/20 00:24 Labs: Abnormal Lab Results - Last 24 Hours (Table) 07/08/20 07/08/20 Range/Units 00:24 00:24 WBC 17.9 H (3.8-10.6) k/uL Neutrophils # 11.5 H (1.3-7.7) k/uL Glucose 101 H (74-99) mg/dL Assessment and Plan Assessment: 1- patient presented to hospital with dizziness and elevated blood pressure in this patient noticed to have a white count of 17,000 however the patient did not have any fever and no obvious focus of infection in this patient lungs clear to auscultation abdomen was soft and no evidence of any cellulitis , With a recent episode of sepsis thought to be related to abdominal source that needs to be further investigated 2- penicillin ALLERGY that will limit number of antibiotic safety use (1) Leukocytosis Current Visit: Yes Status: Acute Code(s): D72.829 - ELEVATED WHITE BLOOD CELL COUNT, UNSPECIFIED SNOMED Code(s): 864325392 Plan: 1- we will obtain blood cultures and UA and cultures and CRP 2- check ultrasound of the abdominal pelvis with oral contrast only 3- hold on adding any systemic antibiotic therapy at this point We will follow on clinical condition and cultures to further adjust medication if needed Thank you for this consultation will follow this patient with you Time with Patient: Greater than 30
[2020-07-09] MEDS: ACETAMINOPHEN TAB 500 MG TAB PO PRN ×2 (03:31→15:53)
[2020-07-09 04:14] LABS: Folate, Serum >24.0 ng/mL
[2020-07-09] MEDS: SODIUM CHLORIDE 0.9% 1,000 ML IV SCH ×2 (06:22→16:12)
[2020-07-09 06:24] LABS: Basophils # (A) 0.1 k/uL (0-0.2); Basophils % (A) 1 %; Eosinophils # (A) 0.4 k/uL (0-0.7); Eosinophils % (A) 4 %; Lymphocytes # (A) 3.3 k/uL (1.0-4.8); Lymphocytes % (A) 34 %; MCH 28.4 pg (25.0-35.0); MCHC 31.5 g/dL (31.0-37.0); MCV 90.3 fL (80.0-100.0); Mean Platelet Volume 7.9; Monocytes # (A) 0.5 k/uL (0-1.0); Monocytes % (A) 5 %; Neutrophils # (A) 5.2 k/uL (1.3-7.7); Neutrophils % (A) 53 %; Platelet Count 293 k/uL (150-450); RDW 14.2 % (11.5-15.5); WBC 9.8 k/uL (3.8-10.6)
[2020-07-09 06:31] LABS: C Reactive Protein 18.7 mg/L (<10.0)
[2020-07-09] MEDS: PANTOPRAZOLE 40 MG TABLET PO SCH (07:25)
[2020-07-09] MEDS: GABAPENTIN 300 MG CAP PO SCH ×3 (08:22→21:01)
[2020-07-09] MEDS: ASPIRIN 81 MG PO SCH (08:22)
[2020-07-09] MEDS: SENNOSIDES-DOCUSATE SODIUM 1 EACH TAB PO SCH ×2 (08:22→20:47)
[2020-07-09] MEDS: LOSARTAN 25 MG TAB PO SCH (08:22)
[2020-07-09] MEDS: METOPROLOL TARTRATE 12.5 MG TAB PO SCH ×2 (08:22→21:01)
[2020-07-09] MEDS: OXYBUTYNIN CHLORIDE 5 MG TAB PO SCH ×2 (08:22→21:01)
[2020-07-09] MEDS: BACLOFEN 10 MG TAB PO SCH ×3 (08:22→22:58)
[2020-07-09] MEDS: MELOXICAM 7.5 MG TAB PO SCH (08:23)
[2020-07-09] MEDS: FAMOTIDINE 20 MG/2 ML VIAL IV SCH (08:24)
[2020-07-09] MEDS: HEPARIN SODIUM,PORCINE 5,000 UNIT/ML 1 ML VIAL SQ SCH ×2 (08:24→21:00)
[2020-07-09] MEDS: LORATADINE 10 MG TAB PO SCH (08:24)
--- NOTE | 2020-07-09 11:43 | P.PN ---
Subjective This is a pleasant 55 years old female with past medical history of asthma, hyperlipidemia, hypertension, osteoarthritis, sleep apnea on CPAP/BiPAP, disc disease . Patient presents with dizziness of 3 days' duration associated with nausea and no vomiting, she Her dizziness is about to fall and found similar to presyncope but she denies passing out. No vertigo. She was concerned because blood pressure was elevated, and her admission it was 168/148 and heart rate 84. She has some chest pressure and she saw her industrial roof plumber prescribed her some metoprolol. Also patient complaining of from headache which was bad yesterday but resolved, and started to have headache this morning. He feels generally fatigued No weakness or numbness. She was recently in the hospital 06/25-07/01 for fever of unknown origin and history of recent removal of pain stimulator (06/15-06/21 ) and rule out paraspinal abscess. Patient had negative bone scan, lumbar MRI and computed tomography scan. She denies smoking, alcohol or illicit tracts. She uses CPAP machine at home. Vital signs stable. leukocytosis of 17.9, going up from 13.6, earlier in the mouth was 13.6 and 15.3 k. Rest of labs including INR, BMP and liver enzymes were unremarkable. Lipase is normal. EKG showing normal sinus rhythm at [address]-T changes.: No acute process. She was started on normal sinus 75 mL/h, Zofran and Reglan and antevert and Benadryl. Cartilage team has been already consulted for chest pain and dizziness 07/09/2020 Patient feels better today however is not completely resolved. All her symptoms of dizziness, headache and nausea are improving but they're not completely resolved. Vitals stable and CBC is within normal limits, with WBC came back to normal at 9.88 today C-reactive protein is high at 18.7 however is better than yesterday of 20.8. CT of the abdomen and pelvis without contrast were unremarkable Vitamin B12 more than 1004, procalcitonin is normal, TSH is normal ID and neurology input is appreciated We will check orthostatic vitals and keep monitor the patient for now Review of Systems CONSTITUTIONAL: No fever, no malaise, no fatigue. HEENT: No recent visual problems or hearing problems. Denied any sore throat. CARDIOVASCULAR: No orthopnea, PND, no palpitations, no syncope. PULMONARY: No shortness of breath, no cough, no hemoptysis. GASTROINTESTINAL: No diarrhea, no nausea, no vomiting, no abdominal pain. Normoactive bowel sounds. NEUROLOGICAL: No headaches, no weakness, no numbness. HEMATOLOGICAL: Denies any bleeding or petechiae. GENITOURINARY: Denies any burning micturition, frequency, or urgency. MUSCULOSKELETAL/RHEUMATOLOGICAL: Denies any joint pain, swelling, or any muscle pain. ENDOCRINE: Denies any polyuria or polydipsia. Active Medications Generic Name Dose Route Start Last Admin Trade Name Freq PRN Reason Stop Dose Admin Acetaminophen 1,000 mg 07/08/20 09:14 07/09/20 03:31 Tylenol Tab PO 1,000 mg Q6H PRN Administration Fever Albuterol Sulfate 2.5 mg 07/08/20 09:14 Ventolin Nebulized INHALATION RT-Q4H PRN Shortness Of Breath Aspirin 81 mg 07/08/20 09:15 07/09/20 08:22 Aspirin PO 81 mg DAILY JOVON Administration Atorvastatin Calcium 80 mg 07/08/20 21:00 07/08/20 22:31 Lipitor PO 80 mg HS JOVON Administration Baclofen 5 mg 07/08/20 16:00 07/09/20 08:22 Lioresal PO 5 mg TID JOVON Administration Barium Sulfate 450 ml 07/08/20 16:19 07/08/20 20:33 Readi-Cat 2 PO 07/09/20 16:21 450 ml Q3HR PRN Administration CT Scan Budesonide/Formoterol Fumarate 2 puff 07/08/20 09:14 Symbicort 160-4.5 Mcg Inhaler INHALATION RT-BID PRN Shortness Of Breath Bupropion HCl 150 mg 07/08/20 21:00 07/08/20 22:31 Wellbutrin Sr PO 150 mg HS JOVON Administration Famotidine 20 mg 07/08/20 21:00 07/09/20 08:24 Pepcid IV 20 mg Q12HR JOVON Administration Gabapentin 300 mg 07/08/20 16:00 07/09/20 08:22 Neurontin PO 300 mg TID JOVON Administration Heparin Sodium (Porcine) 5,000 unit 07/08/20 10:00 07/09/20 08:24 Heparin SQ 5,000 unit Q12HR JOVON Administration Sodium Chloride 1,000 mls @ 75 mls/hr 07/08/20 01:45 07/09/20 06:22 Saline 0.9% IV 75 mls/hr .[id number] JOVON Administration Loratadine 10 mg 07/08/20 09:15 07/09/20 08:24 Claritin PO 10 mg DAILY JOVON Administration Losartan Potassium 25 mg 07/09/20 09:00 07/09/20 08:22 Cozaar PO 25 mg DAILY JOVON Administration Meloxicam 15 mg 07/09/20 09:00 07/09/20 08:23 Mobic PO 15 mg DAILY JOVON Administration Metoprolol Tartrate 12.5 mg 07/08/20 21:00 07/09/20 08:22 Lopressor PO 12.5 mg BID JOVON Administration Montelukast Sodium 10 mg 07/08/20 21:00 07/08/20 22:31 Singulair PO 10 mg HS JOVON Administration Naloxone HCl 0.2 mg 07/08/20 01:36 Narcan IV Q2M PRN Opioid Reversal Ondansetron HCl 4 mg 07/08/20 01:36 07/08/20 04:21 Zofran IVP 4 mg Q8HR PRN Administration Nausea And Vomiting Oxybutynin Chloride 5 mg 07/08/20 21:00 07/09/20 08:22 Ditropan PO 5 mg BID JOVON Administration Pantoprazole Sodium 40 mg 07/08/20 09:30 07/09/20 07:25 Protonix PO 40 mg [id number] JOVON Administration Senna/Docusate Sodium 1 each 07/08/20 21:00 07/09/20 08:22 Senokot-S PO 1 each BID JOVON Administration Objective - Vital Signs Vital signs: Vital Signs Temp 97.9 F 07/09/20 08:00 Pulse 71 07/09/20 08:00 Resp 20 07/09/20 08:00 BP 140/74 07/09/20 08:00 Pulse Ox 97 07/09/20 08:00 Intake & Output 07/08/20 07/09/20 07/09/20 18:59 06:59 18:59 Intake Total 361 Balance 361 Weight 77.111 kg 103.1 kg Intake: Oral 361 Other: Voiding Method Toilet # Voids 2 1 2 # Bowel Movements 1 - Exam GENERAL: The patient is alert and oriented x3, not in any acute distress. Well developed, well nourished. HEENT: Pupils are round and equally reacting to light. EOMI. No scleral icterus. No conjunctival pallor. Normocephalic, atraumatic. No pharyngeal erythema. No thyromegaly. CARDIOVASCULAR: S1 and S2 present. No murmurs, rubs, or gallops. PULMONARY: Chest is clear to auscultation, no wheezing or crackles. ABDOMEN: Soft, nontender, nondistended, normoactive bowel sounds. No palpable organomegaly. MUSCULOSKELETAL: No joint swelling or deformity. EXTREMITIES: No cyanosis, clubbing, or pedal edema. NEUROLOGICAL: Gross neurological examination did not reveal any focal deficits. SKIN: No rashes. no petechiae. - Labs CBC & Chem 7: 07/09/20 06:08 07/08/20 00:24 Labs: Abnormal Lab Results - Last 24 Hours (Table) 07/08/20 07/08/20 07/09/20 Range/Units 00:24 17:53 06:08 C-Reactive Protein 20.8 H 18.7 H (<10.0) mg/L Vitamin B12 1476.0 H (200.0-944.0) pg/mL Assessment and Plan Assessment: Dizziness or presyncope Uncontrolled hypertension, with headache Leukocytosis Hyperlipidemia Osteoarthritis Sleep apnea on CPAP/BiPAP Disc disease Recent history of sepsis of unknown primary site, discharge on oral antibiotics Obesity with BMI of 32 Plan: This is a pleasant 65 years old female who presents with dizziness and leukocytosis. Continue with Antivert as needed. Continue with IV fluids. Follow-up recommendation by industrial roof plumber. Check TSH and B12 Also we'll consult infectious disease for leukocytosis and neurology for dizziness Labs and medication were reviewed.. Continue same treatment. Continue with symptomatic treatment. Resume home medication. Monitor lytes and vitals. DVT and GI prophylaxis. Further recommendations of the clinical course of the patient DVT prophylaxis: Subcutaneous heparin GI Prophylaxis: Pepcid PT/OT: Pending Prognosis is guarded
[2020-07-09 12:08] LABS: Folate, Serum >24.0 ng/mL
[2020-07-09 12:43] LABS: Appearance,Urine Clear (Clear); Color,Urine Yellow; Glucose,Urine (UA) Negative (Negative); Protein,Urine Negative (Negative)
[2020-07-09 12:44] LABS: Bilirubin,Urine Negative (Negative); Blood,Urine Negative (Negative); Ketones,Urine Negative (Negative); Leukocyte Esterase,Urine Negative (Negative); Nitrite,Urine Negative (Negative); Urobilinogen,Urine <2.0 mg/dL (<2.0)
--- NOTE | 2020-07-09 13:14 | P.PN ---
Subjective Progress Note Date: 07/09/20 This is a pleasant 55-year-old male patient who follows with Dr. Nuñez in the office. This a history of OR in 2018 at which time cardiac catheterization showed critical stenosis involving the left circumflex and she subsequently underwent stenting of that vessel. Also has a history of hypertension hyperli pidemia and prior smoking. She was recently admitted with sepsis of unknown origin. She was discharged on antibiotics. She was seen in the office yesterday by Dr. Covarrubias and at that time had been complaining of some palpitations and heart rate was elevated in sinus rhythm. She was initiated on Toprol tartrate 12.5 mg by mouth twice a day. She complained of having a headache all day yesterday. She decided to come to the emergency department after getting elevated blood pressure readings at home. One blood pressure reading was 160/148 late last night and she was feeling somewhat dizzy with a headache she's also been getting some chest pressure that is different in character compared to what she experienced with her OR. She was also feeling somewhat short of breath. Despite elevated readings at home blood pressure yesterday in the office was 126/70 and blood pressure on admission was 125/69 with subsequent blood pressures being well controlled. Labs on admission showed white blood cell count of 17,900, potassium 3.7, BUN 16, creatinine 0.84 and troponins have been negative 3. EKG showed sinus rhythm with evidence of prior infarct but no evidence of acute ischemia. 07/09/2020 patient was seen and examined this morning sitting up in a chair. She is overall feeling better. Denies any complaints of headache, dizziness or chest discomfort. Vital signs have been stable. Blood pressure has been reasonably well-controlled.she remains on Lipitor 80 mg by mouth daily at bedtime, aspirin 81 mg by mouth daily, losartan 25 mg by mouth daily, metoprolol tartrate 12.5 mg by mouth twice a day. Objective - Vital Signs Vital signs: Vital Signs Temp 97.9 F 07/09/20 08:00 Pulse 71 07/09/20 08:00 Resp 20 07/09/20 08:00 BP 140/74 07/09/20 08:00 Pulse Ox 97 07/09/20 08:00 Intake & Output 07/08/20 07/09/20 07/09/20 18:59 06:59 18:59 Intake Total 361 Balance 361 Weight 77.111 kg 103.1 kg Intake: Oral 361 Other: Voiding Method Toilet # Voids 2 1 2 # Bowel Movements 1 - Exam PHYSICAL EXAMINATION: HEENT: Head is atraumatic, normocephalic. Pupils are equal, round. Sclerae anicteric. Conjunctivae are clear. Mucous membranes of the mouth are moist. Neck is supple. There is no elevated jugular venous pressure. No carotid bruit is heard. CHEST EXAMINATION: Clear to auscultation bilaterally. No wheezes rales or rhonchi. Respirations even and nonlabored. HEART EXAMINATION: Heart regular, positive S1 and S2. No S3. No S4. With a soft systolic murmur. ABDOMEN: Soft, nontender. Bowel sounds are heard. No organomegaly noted. EXTREMITIES: 2+ peripheral pulses with no evidence of peripheral edema and no calf tenderness noted. NEUROLOGIC EXAMINATION: Patient is awake, alert and oriented x3. - Labs CBC & Chem 7: 07/09/20 06:08 07/08/20 00:24 Labs: Abnormal Lab Results - Last 24 Hours (Table) 07/08/20 07/08/20 07/09/20 Range/Units 00:24 17:53 06:08 C-Reactive Protein 20.8 H 18.7 H (<10.0) mg/L Vitamin B12 1476.0 H 1628.0 H (200.0-944.0) pg/mL Microbiology - Last 24 Hours (Table) 07/08/20 10:28 Blood Culture - Preliminary Blood No Growth after 24 hours Assessment and Plan Assessment: #1 symptoms of dizziness, headache and chest pressure, troponins negative 3, no evidence of ischemia on EKG, stress test in January of this year showed no evidence of stress-induced ischemia. #2 CAD with history of OR and stent placement to left circumflex in 2018 #3 hypertension, well controlled here and in the office but with high readings at home #4 hyperlipidemia #5 recent hospitalization with sepsis of unknown origin #6 history of mild AI Plan: From cardiology's perspective, elevated blood pressure readings likely related to an accuracy of the home blood pressure cuff. No further cardiac workup is needed at this time. She'll follow-up in the office with Dr. Nuñez. SERVICE STATION HELPER note has been reviewed, I agree with a documented findings and plan of care. Patient was seen and examined.
--- NOTE | 2020-07-09 16:16 | PN ---
PROGRESS NOTE DATE OF SERVICE: 07/09/2020 REASON FOR FOLLOWUP: Leukocytosis. INTERVAL HISTORY: Patient is currently afebrile. The patient is breathing comfortably. Denies having any chest pain. No shortness of breath or cough. No nausea, no vomiting, no abdominal pain or diarrhea. PHYSICAL EXAMINATION: Blood pressure 115/70 with a pulse of 78, temperature 97.9. She is 97% on room air. General description is a middle-aged female up in the chair in no distress. Respiratory system: Unlabored breathing, clear to auscultation anteriorly. Heart S1, S2. Regular rate and rhythm. Abdomen soft, no tenderness. LABS: White count normal 9.8. Urine is negative. CRP is down to 18.7 [address] of abdomen and pelvis was negative. Urine is negative. DIAGNOSTIC IMPRESSION AND PLAN: Patient with leukocytosis, possibly reactive in this patient with no obvious focus of infection. The patient's white count normalized without antibiotic therapy. I recommend no antibiotic and monitor the patient closely off antibiotic therapy. MMODL / IJN: [id number] /
[2020-07-09] MEDS: MONTELUKAST 10 MG TAB PO SCH (21:01)
[2020-07-09] MEDS: ATORVASTATIN 80 MG TAB PO SCH (21:01)
[2020-07-09] MEDS: buPROPion SR 150 MG TABLET.ER PO SCH (21:01)
[2020-07-10] MEDS: PANTOPRAZOLE 40 MG TABLET PO SCH (06:10)
[2020-07-10] MEDS: ACETAMINOPHEN TAB 500 MG TAB PO PRN (06:10)
[2020-07-10 08:56] LABS: HCT 36.6 % (34.0-46.0); HGB 11.9 gm/dL (11.4-16.0); MCHC 32.4 g/dL (31.0-37.0); MCV 89.3 fL (80.0-100.0); Mean Platelet Volume 7.8; Platelet Count 285 k/uL (150-450); RDW 14.2 % (11.5-15.5); WBC 9.2 k/uL (3.8-10.6)
[2020-07-10] MEDS: MELOXICAM 7.5 MG TAB PO SCH (09:31)
[2020-07-10] MEDS: BACLOFEN 10 MG TAB PO SCH ×3 (09:31→20:32)
[2020-07-10] MEDS: ASPIRIN 81 MG PO SCH (09:31)
[2020-07-10] MEDS: METOPROLOL TARTRATE 12.5 MG TAB PO SCH ×2 (09:31→20:32)
[2020-07-10] MEDS: LOSARTAN 25 MG TAB PO SCH (09:32)
[2020-07-10] MEDS: SENNOSIDES-DOCUSATE SODIUM 1 EACH TAB PO SCH ×2 (09:32→19:40)
[2020-07-10] MEDS: OXYBUTYNIN CHLORIDE 5 MG TAB PO SCH ×2 (09:32→20:32)
[2020-07-10] MEDS: SODIUM CHLORIDE 0.9% 1,000 ML IV SCH (09:32)
[2020-07-10] MEDS: GABAPENTIN 300 MG CAP PO SCH ×3 (09:32→20:32)
[2020-07-10] MEDS: HEPARIN SODIUM,PORCINE 5,000 UNIT/ML 1 ML VIAL SQ SCH ×2 (09:32→20:32)
[2020-07-10] MEDS: LORATADINE 10 MG TAB PO SCH (09:32)
--- NOTE | 2020-07-10 14:57 | P.PN ---
Subjective Progress Note Date: 07/10/20 This is a pleasant 55-year-old male patient who follows with Dr. Nuñez in the office. This a history of MO in 2018 at which time cardiac catheterization showed critical stenosis involving the left circumflex and she subsequently underwent stenting of that vessel. Also has a history of hypertension hyperli pidemia and prior smoking. She was recently admitted with sepsis of unknown origin. She was discharged on antibiotics. She was seen in the office yesterday by Dr. Covarrubias and at that time had been complaining of some palpitations and heart rate was elevated in sinus rhythm. She was initiated on Toprol tartrate 12.5 mg by mouth twice a day. She complained of having a headache all day yesterday. She decided to come to the emergency department after getting elevated blood pressure readings at home. One blood pressure reading was 160/148 late last night and she was feeling somewhat dizzy with a headache she's also been getting some chest pressure that is different in character compared to what she experienced with her MO. She was also feeling somewhat short of breath. Despite elevated readings at home blood pressure yesterday in the office was 126/70 and blood pressure on admission was 125/69 with subsequent blood pressures being well controlled. Labs on admission showed white blood cell count of 17,900, potassium 3.7, BUN 16, creatinine 0.84 and troponins have been negative 3. EKG showed sinus rhythm with evidence of prior infarct but no evidence of acute ischemia. 07/09/2020 patient was seen and examined this morning sitting up in a chair. She is overall feeling better. Denies any complaints of headache, dizziness or chest discomfort. Vital signs have been stable. Blood pressure has been reasonably well-controlled.she remains on Lipitor 80 mg by mouth daily at bedtime, aspirin 81 mg by mouth daily, losartan 25 mg by mouth daily, metoprolol tartrate 12.5 mg by mouth twice a day. 07/10/2020 Patient was seen and examined today sitting up in a chair. She denies further complaints of chest discomfort. She does have occasional dizziness at times. Blood pressure has been well controlled. She remains afebrile. Objective - Vital Signs Vital signs: Vital Signs Temp 98.1 F 07/10/20 08:00 Pulse 73 07/10/20 12:00 Resp 20 07/10/20 12:00 BP 148/87 07/10/20 12:00 Pulse Ox 98 07/10/20 12:00 Intake & Output 07/09/20 07/10/20 07/10/20 18:59 06:59 18:59 Intake Total 597 911 Balance 597 911 Weight 102.9 kg Intake: Intake, IV Titration 675 Amount Sodium Chloride 0.9% 1, 675 000 ml @ 75 mls/hr IV . [id number] JOVON Rx#:[id number] Oral 597 236 Other: # Voids 2 2 1 # Bowel Movements 1 - Exam PHYSICAL EXAMINATION: HEENT: Head is atraumatic, normocephalic. Pupils are equal, round. Sclerae anicteric. Conjunctivae are clear. Mucous membranes of the mouth are moist. Neck is supple. There is no elevated jugular venous pressure. No carotid bruit is heard. CHEST EXAMINATION: Clear to auscultation bilaterally. No wheezes rales or rhonchi. Respirations even and nonlabored. HEART EXAMINATION: Heart regular, positive S1 and S2. No S3. No S4. With a soft systolic murmur. ABDOMEN: Soft, nontender. Bowel sounds are heard. No organomegaly noted. EXTREMITIES: 2+ peripheral pulses with no evidence of peripheral edema and no calf tenderness noted. NEUROLOGIC EXAMINATION: Patient is awake, alert and oriented x3. - Labs CBC & Chem 7: 07/10/20 08:41 07/08/20 00:24 Labs: Abnormal Lab Results - Last 24 Hours (Table) 07/10/20 Range/Units 08:41 C-Reactive Protein 12.8 H (<10.0) mg/L Microbiology - Last 24 Hours (Table) 07/08/20 10:28 Blood Culture - Preliminary Blood No Growth after 48 hours Assessment and Plan Assessment: #1 symptoms of dizziness, headache and chest pressure, troponins negative 3, no evidence of ischemia on EKG, stress test in January of this year showed no evidence of stress-induced ischemia. #2 CAD with history of MO and stent placement to left circumflex in 2018 #3 hypertension, well controlled here and in the office but with high readings at home #4 hyperlipidemia #5 recent hospitalization with sepsis of unknown origin #6 history of mild AI Plan: From cardiology's perspective, elevated blood pressure readings likely related to an accuracy of the home blood pressure cuff. No further cardiac workup is needed at this time. The patient is stable for discharge from our standpoint. She'll follow-up in the office with Dr. Nuñez. STUDY HALL SUPERVISOR note has been reviewed, I agree with a documented findings and plan of care. Patient was seen and examined.
[2020-07-10] MEDS ORDERED: DULoxetine HCL 20 MG CAPSULE.DR PO SCH (17:36)
--- NOTE | 2020-07-10 17:50 | P.PN ---
Subjective This is a pleasant 55 years old female with past medical history of asthma, hyperlipidemia, hypertension, osteoarthritis, sleep apnea on CPAP/BiPAP, disc disease . Patient presents with dizziness of 3 days' duration associated with nausea and no vomiting, she Her dizziness is about to fall and found similar to presyncope but she denies passing out. No vertigo. She was concerned because blood pressure was elevated, and her admission it was 168/148 and heart rate 84. She has some chest pressure and she saw her licensing representative prescribed her some metoprolol. Also patient complaining of from headache which was bad yesterday but resolved, and started to have headache this morning. He feels generally fatigued No weakness or numbness. She was recently in the hospital 06/25-07/01 for fever of unknown origin and history of recent removal of pain stimulator (06/15-06/21 ) and rule out paraspinal abscess. Patient had negative bone scan, lumbar MRI and computed tomography scan. She denies smoking, alcohol or illicit tracts. She uses CPAP machine at home. Vital signs stable. leukocytosis of 17.9, going up from 13.6, earlier in the mouth was 13.6 and 15.3 k. Rest of labs including INR, BMP and liver enzymes were unremarkable. Lipase is normal. EKG showing normal sinus rhythm at [address]-T changes.: No acute process. She was started on normal sinus 75 mL/h, Zofran and Reglan and antevert and Benadryl. Cartilage team has been already consulted for chest pain and dizziness 07/09/2020 Patient feels better today however is not completely resolved. All her symptoms of dizziness, headache and nausea are improving but they're not completely resolved. Vitals stable and CBC is within normal limits, with WBC came back to normal at 9.88 today C-reactive protein is high at 18.7 however is better than yesterday of 20.8. CT of the abdomen and pelvis without contrast were unremarkable Vitamin B12 more than 1004, procalcitonin is normal, TSH is normal ID and neurology input is appreciated We will check orthostatic vitals and keep monitor the patient for now 07/10/2020 Patient nausea and headache resolved today and only with some dizziness. Patient was tearful and concerned and depressed today however she denies tristan icidal ideation or hallucination. She states that she is frustrated about found for her illness and her low back pain especially pain stimulator could not be installed again. Her WBC remains normal, C-reactive protein is down to 12. The suspicion for infection is very low which is the same impression by the infectious diseases specialist. Patient is already on Wellbutrin, we will stop Wellbutrin we will add Cymbalta and ask for psych consult. And lidocaine patch for low back pain Possible discharge in 24-48 hours if the patient keep improving and remained stable Objective - Vital Signs Vital signs: Vital Signs Temp 98.0 F 07/10/20 16:00 Pulse 61 07/10/20 16:00 Resp 20 07/10/20 16:00 BP 143/87 07/10/20 16:00 Pulse Ox 98 07/10/20 16:00 Intake & Output 07/09/20 07/10/20 07/10/20 18:59 06:59 18:59 Intake Total 597 1133 Balance 597 1133 Weight 102.9 kg Intake: Intake, IV Titration 675 Amount Sodium Chloride 0.9% 1, 675 000 ml @ 75 mls/hr IV . [id number] [facility] Rx#:[id number] Oral 597 [id number] Other: # Voids 2 2 2 # Bowel Movements 1 - Exam GENERAL: The patient is alert and oriented x3, not in any acute distress. Well developed, well nourished. HEENT: Pupils are round and equally reacting to light. EOMI. No scleral icterus. No conjunctival pallor. Normocephalic, atraumatic. No pharyngeal erythema. No thyromegaly. CARDIOVASCULAR: S1 and S2 present. No murmurs, rubs, or gallops. PULMONARY: Chest is clear to auscultation, no wheezing or crackles. ABDOMEN: Soft, nontender, nondistended, normoactive bowel sounds. No palpable organomegaly. MUSCULOSKELETAL: No joint swelling or deformity. EXTREMITIES: No cyanosis, clubbing, or pedal edema. NEUROLOGICAL: Gross neurological examination did not reveal any focal deficits. SKIN: No rashes. no petechiae. - Labs CBC & Chem 7: 07/10/20 08:41 07/08/20 00:24 Labs: Abnormal Lab Results - Last 24 Hours (Table) 07/10/20 Range/Units 08:41 C-Reactive Protein 12.8 H (<10.0) mg/L Microbiology - Last 24 Hours (Table) 07/08/20 10:28 Blood Culture - Preliminary Blood No Growth after 48 hours Assessment and Plan Assessment: Dizziness or presyncope Depression with chronic low back pain Uncontrolled hypertension, with headache, improving Leukocytosis, back to normal Hyperlipidemia Osteoarthritis Sleep apnea on CPAP/BiPAP Disc disease Recent history of sepsis of unknown primary site, discharge on oral antibiotics Obesity with BMI of 32 Plan: This is a pleasant 65 years old female who presents with dizziness . Patient's symptoms improving however she feels depressed. To stop Wellbutrin and Cymbalta for psych consult no evidence of infection and no need for antibiotic Labs and medication were reviewed.. Continue same treatment. Continue with symptomatic treatment. Resume home medication. Monitor lytes and vitals. DVT and GI prophylaxis. Further recommendations of the clinical course of the patient DVT prophylaxis: Subcutaneous heparin GI Prophylaxis: Pepcid PT/OT: Home Possible discharge in 24-48 hours
[2020-07-10] MEDS: LIDOCAINE 5% PATCH TOPICAL SCH (20:32)
[2020-07-10] MEDS: DULoxetine HCL 30 MG CAPSULE.DR PO SCH (20:32)
[2020-07-10] MEDS: ATORVASTATIN 80 MG TAB PO SCH (20:32)
[2020-07-10] MEDS: MONTELUKAST 10 MG TAB PO SCH (20:32)
[2020-07-10 20:39] VITALS: RESP 16
--- NOTE | 2020-07-10 23:37 | PN ---
PROGRESS NOTE DATE OF SERVICE: 07/10/2020. REASON FOR FOLLOWUP: Leukocytosis. INTERVAL HISTORY: The patient is currently afebrile. The patient is breathing comfortably. Patient denies having any chest pain or shortness of breath or cough. No nausea, vomiting. No abdominal pain or diarrhea. PHYSICAL EXAMINATION: Blood pressure 143/87 with the pulse of 61, temperature 98. She is 98% on room air. General description is a middle-aged female up in the chair in no distress. RESPIRATORY SYSTEM: Unlabored breathing, clear to auscultation anteriorly. HEART: S1, S2. Regular rate and rhythm. ABDOMEN: Soft, no tenderness. LABS: Hemoglobin 11.9, white count 9.2. Urine is negative. CT of abdomen and pelvis was negative. Blood culture negative. DIAGNOSTIC IMPRESSION AND PLAN: Patient with elevated white count on admission. However, the patient did not have any clinical focus of infection. Cultures have been negative. Workup is so far negative. The patient white count responded, normalized without getting antibiotic therapy; hence, recommend no antibiotic on discharge. Continue supportive care. MMODL / IJN: [id number] /
[2020-07-11] MEDS: PANTOPRAZOLE 40 MG TABLET PO SCH (06:32)
[2020-07-11] MEDS: LOSARTAN 25 MG TAB PO SCH (09:17)
[2020-07-11] MEDS: SENNOSIDES-DOCUSATE SODIUM 1 EACH TAB PO SCH (09:17)
[2020-07-11] MEDS: ASPIRIN 81 MG PO SCH (09:17)
[2020-07-11] MEDS: LIDOCAINE 5% PATCH TOPICAL SCH (09:17)
[2020-07-11] MEDS: MELOXICAM 7.5 MG TAB PO SCH (09:17)
[2020-07-11] MEDS: OXYBUTYNIN CHLORIDE 5 MG TAB PO SCH (09:17)
[2020-07-11] MEDS: BACLOFEN 10 MG TAB PO SCH (09:18)
[2020-07-11] MEDS: HEPARIN SODIUM,PORCINE 5,000 UNIT/ML 1 ML VIAL SQ SCH (09:18)
[2020-07-11] MEDS: LORATADINE 10 MG TAB PO SCH (09:18)
[2020-07-11] MEDS: METOPROLOL TARTRATE 12.5 MG TAB PO SCH (09:18)
[2020-07-11] MEDS: DULoxetine HCL 30 MG CAPSULE.DR PO SCH (09:18)
[2020-07-11] MEDS: GABAPENTIN 300 MG CAP PO SCH (09:18)
--- NOTE | 2020-07-11 10:55 | CONS ---
CONSULTATION DATE OF SERVICE: 07/11/2020 PURPOSE FOR CONSULTATION: Evaluate for depression and medication change. HISTORY OF PRESENTING ILLNESS: The patient is a 55-year-old female. She was admitted to the medical floor for dizziness and elevated blood pressure. It is noted that she has chronic lower back pain relating to a strain from the work she was doing over a number of years. She has had issues with depression as well. In regard to depression, she notes that depression goes back to at least her early 40s. She said she had been on Celexa for a long period of time, which she took mainly for "being stressed." She said she thought it helped. She notes that about 3 years ago she was switched to Cymbalta to help with pain. She took it for about a year. She said she had hot flashes with it at that time. She ended up going off Cymbalta and went on Wellbutrin, which she took for about 2 years. She was on 150 mg a day. She said that when she went off Cymbalta, the hot flashes went away. She has been on Wellbutrin up to this admission. The patient notes that she does have anxiety. She notes that she does not sleep well due to sleep apnea. She has had some loss of energy. She notes stress at home primarily with her 13-year-old daughter who has ADHD and can be quite demanding at times. She talked about the main reason being in the hospital related to a possible infection along with her general physical complaints. She had been having some nausea and headache, though reported that that seemed to be better in the last 2 days. It is noteworthy that when she saw Dr. Ferguson yesterday, she was tearful and talking about being more depressed. She noted no thoughts of self-harm. She was on Wellbutrin, which was discontinued. She has been started on Cymbalta 30 mg twice a day as her only psychotropic medication. She is also on Neurontin 300 mg 3 times a day and baclofen 5 mg 3 times a day as other psychoactive medications. She has had no problems at this point with the change in her antidepressant. She notes that she has been followed by her primary care physician for her psychotropic medications. The family is involved with professional counseling services with home-based therapy for the 13-year-old daughter who has autistic spectrum issues and ADHD. In regard to her current situation, the patient does describe that she can get into periods where she gets agitated and then tearful. Sometimes she can get intense, especially when she is trying to deal with her daughter. She notes that she has to step away at times. She notes that her mood has been up and down. She reports no issues with hallucinations or delusional thoughts. She has had panic issues in the past, though has not had any significant panic attacks of late. She does have anxiety, again connected to depression. MENTAL STATUS EXAM: Patient was lying in bed. She gave fairly good eye contact. Psychomotor activity was fairly normal. She answered questions appropriately. Her thoughts were clear and coherent. She was spontaneous and interactive. Her affect was somewhat blunted. She had a quiet, reserved manner. Her mood was somewhat down though mostly she seemed to have a worried concerned manner. She did not appear to be significantly distressed. She was able to talk clearly about her treatment and anticipation of discharge. There was no indication of thought disorder. She voiced no thoughts of harm to self or others. Cognition was clear. ASSESSMENT: I would continue a diagnosis of major depression. I discussed medication issues with the patient. She is currently on 60 mg a day of Cymbalta, which is an appropriate antidepressant. Cymbalta does have some benefits for chronic pain, though I did share with the patient that likely any antidepressant can also be helpful for chronic pain, which to a large extent is a different disorder compared to acute pain. Given that the patient knows her antidepressants as well, I encouraged her to talk with her physician and see how she does with the medications. She may need to titrate up further on Cymbalta. She understands that it might go up to 90 mg and possibly 120 mg. I indicated that if she felt Celexa was helpful in the past, though stopped for some medication complications, there might be the alternative of going to Lexapro or another SSRI such as Prozac or Zoloft. Also, it would not be unreasonable, if she felt she had more benefit from Wellbutrin, that she could go back to Wellbutrin, possibly titrating up to 300 mg. The patient will continue with followup on an outpatient basis with her primary care physician. It is not clear that she would need a psychiatric referral. I will continue to follow if the patient is not discharged today. MMODL / IJN: [id number] /
[2020-07-11 13:07] VITALS: BP 124/70; PULSE 83; TEMP 98.6
--- NOTE | 2020-07-11 13:40 | PN ---
PROGRESS NOTE DATE OF SERVICE: 07/11/2020 REASON FOR FOLLOWUP: Leukocytosis. INTERVAL HISTORY: Patient is currently afebrile. The patient is breathing comfortably. The patient denies having any chest pain or shortness of breath or cough. No nausea. No abdominal pain. No diarrhea. PHYSICAL EXAMINATION: Blood pressure 133/72 with a pulse of 78, temperature 98, she is 96% on room air. General description is a middle-aged female up in the chair in no distress. Respiratory system: Unlabored breathing. Clear to auscultation anteriorly. Heart S1, S2. Regular rate and rhythm. Abdomen is soft, no tenderness. LABS: Blood culture negative. White count normal. DIAGNOSTIC IMPRESSION AND PLAN: Patient with leukocytosis in this patient currently with no obvious clinical focus of infection. The patient's white count normalized without any antibiotic therapy, hence recommend no antibiotic on discharge and close outpatient followup. MMODL / IJN: [id number] /
--- NOTE | 2020-07-11 20:27 | P.DS ---
Providers Date of admission: 07/08/20 01:28 Attending physician: Arnulfo Barrios Consults: 07/08/20 09:48 Consult Physician Routine Consulting Provider: Kami Ott Consult Reason/Comments: leukocytosis Do you want consulting provider notified?: Yes 07/08/20 09:50 Consult Physician Urgent Consulting Provider: Justin Denny Consult Reason/Comments: dizziness, headache, recent pain stimulator removed Do you want consulting provider notified?: Yes 07/10/20 17:34 Consult Physician Routine Consulting Provider: Milo Holt Consult Reason/Comments: depression and chronic low back pain Do you want consulting provider notified?: Yes Primary care physician: Raman Candelaria Hospital Course: Diagnoses: Dizziness or presyncope, resolved prior to Discharge Depression with chronic low back pain Uncontrolled hypertension, with headache, improving Leukocytosis, back to normal Hyperlipidemia Osteoarthritis Sleep apnea on CPAP/BiPAP Disc disease Recent history of sepsis of unknown primary site, discharge on oral antibiotics Obesity with BMI of 32 Hospital course: This is a pleasant 55 years old female with past medical history of asthma, hyperlipidemia, hypertension, osteoarthritis, sleep apnea on CPAP/BiPAP, disc disease . Patient presents with dizziness of 3 days' duration associated with nausea and no vomiting, she Her dizziness is about to fall and found similar to presyncope but she denies passing out. No vertigo. She was concerned because blood pressure was elevated, her symptoms associated with headache and nausea, patient is treated symptomatically and she is been evaluated by rn ambulatory, infectious disease and the neurologist for her symptoms and her symptoms improved. her leukocytosis came back to normal, pro-calcitonin is normal as well, patient found no need for antibiotic. One day prior to discharge patient was sitting significantly depressed, she has history of depression on back pain, consult is provided for the patient and psychiatrist evaluated the patient, patient refused Cymbalta as she tried to before and hurt her back pain but positive for depression, she wanted to increase her Wellbutrin from 150 daily to twice a day and prescription is provided, next day patient feels much better and all her symptoms improved, patient is back to her baseline and she agrees to be discharged and follow-up with PCP and other consultants On the day of discharge she denies headache, no nausea, no dizziness, no chest pain or dyspnea as, no abdominal pain, no vomiting. She is tolerating diet well, no change in urine or bowel habits. No fever Patient was cleared for discharge by all consultants Problems and management plan were discussed with the patient and he verbalized understanding and acceptance Patient was found stable and can be discharged home however he needs follow-up as an outpatient. Patient was instructed to follow up with PCP Dr. Black within one week and patient agrees to call and make appointment as well as with her neurologist and pain health policy manager Dr. Overton. Also she states that she already has an appointment with her rn ambulatory Dr. Covarrubias on 07/26 Gen: patient is a AAOx3, no distress CVS: S1-S2, RRR, no murmur Lungs: B/L CTA, no wheezing Abdomen: soft, no distention, no tenderness, positive bowel sounds Extremity: no leg edema or induration Time spent more than 35 minutes Patient Condition at Discharge: Serious Plan - Discharge Summary Discharge Rx Participant: No New Discharge Prescriptions: New Lidocaine 5% Patch [Lidoderm 5% Patch] 1 patch TOPICAL DAILY #30 patch buPROPion [Wellbutrin] 150 mg PO BID #60 tab Continue Gabapentin [Neurontin] 300 mg PO TID Atorvastatin [Lipitor] 80 mg PO HS #30 tab Nitroglycerin Sl Tabs [Nitrostat] 0.4 mg SUBLINGUAL Q5M PRN #25 tab PRN Reason: Chest Pain Acetaminophen Tab [Tylenol] 1,000 mg PO Q6H PRN PRN Reason: Fever Cetirizine HCl [Zyrtec] 10 mg PO DAILY Albuterol Nebulized [Ventolin Nebulized] 2.5 mg INHALATION RT-QID PRN PRN Reason: Shortness Of Breath Oxybutynin Chloride [Ditropan] 5 mg PO BID Omeprazole [PriLOSEC] 20 mg PO BID Montelukast [Singulair] 10 mg PO HS Losartan [Cozaar] 25 mg PO DAILY Baclofen [Lioresal] 5 mg PO TID Aspirin EC [Ecotrin Low Dose] 81 mg PO DAILY Albuterol Inhaler [Ventolin Hfa Inhaler] 2 puff INHALATION RT-Q4H PRN PRN Reason: Shortness Of Breath Budesonide/Formoterol Fumarate [Symbicort 160-4.5 Mcg Inhaler] 2 puff INHALATION RT-BID PRN PRN Reason: Shortness Of Breath Metoprolol Tartrate [Lopressor] 12.5 mg PO BID Sennosides-Docusate Sodium [Senokot-S] 1 tab PO BID Changed Meloxicam [Mobic] 15 mg PO DAILY PRN #0 PRN Reason: Pain Discontinued buPROPion SR [Wellbutrin SR] 150 mg PO HS Triamterene-Hctz 37.5-25Mg [Dyazide 37.5-25 Capsule] 1 cap PO DAILY metroNIDAZOLE [Flagyl] 500 mg PO QID 7 Days #28 tab Discharge Medication List Gabapentin [Neurontin] 300 mg PO TID 03/26/18 [History] Atorvastatin [Lipitor] 80 mg PO HS #30 tab 03/28/18 [Rx] Nitroglycerin Sl Tabs [Nitrostat] 0.4 mg SUBLINGUAL Q5M PRN #25 tab 03/28/18 [Rx] Acetaminophen Tab [Tylenol] 1,000 mg PO Q6H PRN 06/25/20 [History] Albuterol Inhaler [Ventolin Hfa Inhaler] 2 puff INHALATION RT-Q4H PRN 06/25/20 [History] Albuterol Nebulized [Ventolin Nebulized] 2.5 mg INHALATION RT-QID PRN 06/25/20 [History] Aspirin EC [Ecotrin Low Dose] 81 mg PO DAILY 06/25/20 [History] Baclofen [Lioresal] 5 mg PO TID 06/25/20 [History] Budesonide/Formoterol Fumarate [Symbicort 160-4.5 Mcg Inhaler] 2 puff INHALATION RT-BID PRN 06/25/20 [History] Cetirizine HCl [Zyrtec] 10 mg PO DAILY 06/25/20 [History] Losartan [Cozaar] 25 mg PO DAILY 06/25/20 [History] Montelukast [Singulair] 10 mg PO HS 06/25/20 [History] Omeprazole [PriLOSEC] 20 mg PO BID 06/25/20 [History] Oxybutynin Chloride [Ditropan] 5 mg PO BID 06/25/20 [History] Metoprolol Tartrate [Lopressor] 12.5 mg PO BID 07/08/20 [History] Sennosides-Docusate Sodium [Senokot-S] 1 tab PO BID 07/08/20 [History] Lidocaine 5% Patch [Lidoderm 5% Patch] 1 patch TOPICAL DAILY #30 patch 07/11/20 [Rx] Meloxicam [Mobic] 15 mg PO DAILY PRN #0 07/11/20 [Rx] buPROPion [Wellbutrin] 150 mg PO BID #60 tab 07/11/20 [Rx] Follow up Appointment(s)/Referral(s): Teagan Camargo MD [Primary Care Provider] - 1-2 days Travis Nuñez MD [STAFF PHYSICIAN] - 07/26/20 10:30 am (Appointment with Dr. Covarrubias on 07/26/28 at 10:30 as you informed the medical staff) Marilee Overton MD [Medical Doctor] - 2 Weeks (low back pain . Your neurologist) Patient Instructions/Handouts: Chest Pain (DC), Chronic Pain (DC), Depression (DC) Activity/Diet/Wound Care/Special Instructions: Heart healthy diet Increase activity as tolerated Discharge Disposition: HOME SELF-CARE
[2020-07-11] MEDS ORDERED: buPROPion SR 150 MG TABLET.ER PO SCH (21:00)
== END 2020-07-11 14:21 | disposition home or self-care (01) ==
LOC: EC 23:15 → 3NCARDOBS 07-08 01:28 → 3SCARD 07-08 06:22
PROVIDERS: ADMIT Hospitalist; ATTEND Hospitalist
DX: R07.89 Other chest pain (principal); D72.829 Elevated white blood cell count, unspecified; R42 Dizziness and giddiness; F32.9 Major depressive disorder, single episode, unspecified; G89.29 Other chronic pain; M54.5 Low back pain; I10 Essential (primary) hypertension; R51 Headache; E78.5 Hyperlipidemia, unspecified; M19.90 Unspecified osteoarthritis, unspecified site; G47.33 Obstructive sleep apnea (adult) (pediatric); Z99.89 Dependence on other enabling machines and devices; I25.10 Atherosclerotic heart disease of native coronary artery without angina pectoris; N95.1 Menopausal and female climacteric states; Z86.19 Personal history of other infectious and parasitic diseases; E66.9 Obesity, unspecified; Z68.32 Body mass index [BMI] 32.0-32.9, adult; J45.909 Unspecified asthma, uncomplicated; R11.0 Nausea; R53.83 Other fatigue; I25.2 Old myocardial infarction; Z90.710 Acquired absence of both cervix and uterus; Z98.51 Tubal ligation status; Z98.890 Other specified postprocedural states; Z96.651 Presence of right artificial knee joint; Z82.61 Family history of arthritis; Z83.3 Family history of diabetes mellitus; Z82.49 Family history of ischemic heart disease and other diseases of the circulatory system; Z79.82 Long term (current) use of aspirin; Z79.51 Long term (current) use of inhaled steroids; Z79.1 Long term (current) use of non-steroidal anti-inflammatories (NSAID); Z79.899 Other long term (current) drug therapy; Z88.0 Allergy status to penicillin; Z91.041 Radiographic dye allergy status; Z91.040 Latex allergy status; Z88.8 Allergy status to other drugs, medicaments and biological substances; Z91.018 Allergy to other foods; Z90.49 Acquired absence of other specified parts of digestive tract; X50.0XXA Overexertion from strenuous movement or load, initial encounter; Y93.F2 Activity, caregiving, lifting; F41.9 Anxiety disorder, unspecified; Z81.8 Family history of other mental and behavioral disorders
CPT/HCPCS: 96376 ×2; 96361 ×3; 96372 ×4; 96375; 96374; 99284; 36415; 93005; 97161; 97535; 97165; 82747; 80053; 84443 ×2; 82607 ×2; 82746 ×2; 83605; 83690; 83735; 84484; 85025 ×2; 85027; 85610; 85730; 86140 ×3; 81003; 87040; 84145; 71046; 70450; 74176; G0378 ×5; J1644 ×4; S0106 ×2; J2405

== ENCOUNTER → 2020-07-07 | Outpatient (CLI) | payer MEDICARE, OTHER ==
[2020-07-07 14:55] LABS: Basophils # (A) 0.1 k/uL (0-0.2); Basophils % (A) 1 %; Eosinophils # (A) 0.4 k/uL (0-0.7); Eosinophils % (A) 3 %; HCT 43.3 % (34.0-46.0); HGB 13.5 gm/dL (11.4-16.0); Lymphocytes # (A) 3.7 k/uL (1.0-4.8); Lymphocytes % (A) 27 %; MCHC 31.3 g/dL (31.0-37.0); MCV 89.5 fL (80.0-100.0); Mean Platelet Volume 8.2; Monocytes # (A) 0.7 k/uL (0-1.0); Monocytes % (A) 5 %; Neutrophils # (A) 8.5 k/uL (1.3-7.7); Neutrophils % (A) 62 %; Platelet Count 335 k/uL (150-450); RBC 4.84 m/uL (3.80-5.40); RDW 14.2 % (11.5-15.5); WBC 13.6 k/uL (3.8-10.6)
[2020-07-07 19:30] LABS: Erythrocyte Sedimentation Rate 10 mm/Hr (0-30)
[2020-07-07 19:50] LABS: African American GFR (CKD) 83.4 (60.0-200.0); Albumin 4.3 g/dL (3.80-4.90); Albumin/Globulin Ratio 2.69 (1.60-3.17); Anion Gap 6.9 mmol/L (4.00-12.00); BUN/Creat Ratio 17.78 Ratio (12.00-20.00); C Reactive Protein 1.5 mg/dL (0.0-0.8); Calcium 9.5 mg/dL (8.7-10.3); Carbon Dioxide 31.1 mmol/L (21.6-31.8); Chol/HDL Ratio 2.82; Globulin 1.6 g/dL (1.6-3.3); LDL Cholesterol,Calculated 36.8 mg/dL (0.0-131.0); Potassium 4.1 mmol/L (3.5-5.5); Total Bilirubin 0.5 mg/dL (0.3-1.2); Total Protein 5.9 g/dL (6.2-8.2); VLDL Calculation 23.2 mg/dL (5.00-40.00)
== END | disposition home or self-care (01) ==
LOC: LABWHC1 12:53
PROVIDERS: ATTEND Internal Medicine
DX: D72.829 Elevated white blood cell count, unspecified (principal); I10 Essential (primary) hypertension; R50.9 Fever, unspecified
CPT/HCPCS: 36415; 80053; 80061; 85025; 85652; 86140

== ENCOUNTER → 2020-08-22 | Outpatient (CLI) | payer MEDICARE, OTHER | END | disposition home or self-care (01) | LOC: LABWHC1 15:30 | PROVIDERS: ATTEND Psychiatry & Neurology Neurology | DX: E55.9 Vitamin D deficiency, unspecified (principal) | CPT/HCPCS: 36415; 82306 ==

== ENCOUNTER → 2021-03-20 | Outpatient (CLI) | payer MEDICARE, OTHER | END | disposition home or self-care (01) | LOC: LABWHC1 16:04 | PROVIDERS: ATTEND Psychiatry & Neurology Pain Medicine | DX: E55.9 Vitamin D deficiency, unspecified (principal) | CPT/HCPCS: 36415; 82306 ==